=== PATIENT | female | born 1970 | race Hispanic/Latino ===

== ENCOUNTER → 2019-04-19 | Outpatient (CLI) | payer BC ==
[~2019-04-19] MED LIST: B COMPLEX1 EACH PO; D3 DOTS2000 UNIT PO; DIATRIZOATE MEGL/DIATRIZOA SOD 30 ML BTL PO ONE; IOPAMIDOL 370 MG/ML 200 ML INFUS..BTL INJ ONE; LEVOTHYROXINE100 MC1 IV; MACROBID 100 M100 MG PO; OMEPRAZOLE10 MG PO; PENTOXIFYLLINE400 MG PO; POTASSIUM CHLO20 ME1 PO; SODIUM CHLORIDE 0.9% 50ML 50 ML ONE
--- NOTE | 2019-04-19 10:27 | Diagnostic Imaging Report ---
ADDENDUM #[address] Jerrell Howe at 2:35PM 04/19/2019 Signed by: Heide Zamorano MD on 04/19/2019 2:36 PM ORIGINAL REPORT EXAM: CT Abdomen and Pelvis WITH intravenous contrast INDICATION: Abdominal pain COMPARISON: None. TECHNIQUE: Abdomen and pelvis were scanned utilizing a multidetector helical scanner from the lung base to the pubic symphysis after administration of IV contrast. Coronal and sagittal reformations were obtained. Routine protocol was performed. Scan was performed when during portal venous phase. IV CONTRAST: 100mL of Isovue 370 ORAL CONTRAST: Gastrografin. COMPLICATIONS: None RADIATION DOSE: Total DLP: 677.4 mGy*cm Dose modulation, iterative reconstruction, and/or weight based adjustment of the mA/kV was utilized to reduce the radiation dose to as low as reasonably achievable. FINDINGS: LOWER THORAX: Bibasilar dependent subsegmental atelectasis. HEPATOBILIARY: Diffuse hepatic steatosis. No focal liver lesions. Normal decompressed gallbladder. SPLEEN: No splenomegaly. PANCREAS: No focal masses or ductal dilatation. ADRENALS: No adrenal nodules. KIDNEYS/URETERS: 9 mm distal right ureteral calculus with resulting severe right hydroureteronephrosis. No left renal calculi. No left hydronephrosis. PELVIC ORGANS/BLADDER: Unremarkable. PERITONEUM / RETROPERITONEUM: No free air or fluid. LYMPH NODES: No lymphadenopathy. VESSELS: Normal. GI TRACT: Mild colonic diverticulosis. No CT evidence of diverticulitis. No bowel obstruction. No abnormal bowel wall thickening. Normal appendix. BONES AND SOFT TISSUES: No acute osseous injury. No suspicious lytic or blastic lesions. IMPRESSION: 9 mm right distal ureteral calculus with resulting severe right hydroureteronephrosis. No left renal calculi or hydronephrosis. Mild colonic diverticulosis. No CT evidence of diverticulitis. Hepatic steatosis. Signed by: Heide Zamorano MD on 04/19/2019 10:23 AM
== END ==
LOC: CT 08:21
PROVIDERS: ATTEND Internal Medicine
DX: K57.90 Diverticulosis of intestine, part unspecified, without perforation or abscess without bleeding (principal)
CPT/HCPCS: 74177; Q9967

== ENCOUNTER 2019-04-22 15:24 | Observation (INO) | payer BC ==
[~2019-04-22] VITALS: Ht 137.2 cm; Wt 82.1 kg
--- OUTSIDE RECORDS SUMMARY | 2019-04-22 15:28 | XMS REPORT | Summary of Care ---
Author Author [facility] Organization [facility] Address Unknown Phone Unavailable Encounter RAINA Douglass(LYDIA) [id number] Date(s): 01/04/18 - 01/05/18 [facility] [address] [place] [address]- Discharge Disposition: Home or Self Care Attending Physician: Tim Pham MD Vital Signs Most recent to 1 2 oldest [Reference Range]: Temperature Oral 98 DegF 98.7 DegF [96.4-99.1 DegF] (01/05/18 3:31 AM) (01/04/18 6:44 PM) Blood Pressure 118/76 mmHg 127/87 mmHg [90-140/60-90 mmHg] (01/05/18 3:31 AM) (01/04/18 6:44 PM) Respiratory Rate 16 BRMIN 18 BRMIN [14-20 BRMIN] (01/05/18 3:31 AM) (01/04/18 6:44 PM) Peripheral Pulse 86 bpm 83 bpm Rate [60-100 bpm] (01/05/18 3:31 AM) (01/04/18 6:44 PM) Problem List Condition Effective Dates Status Health Status Informant Escherichia 01/05/18 Active coli(Confirmed)1, 2 Hypertension(Confirm Resolved ed) 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 Allergies, Adverse Reactions, Alerts Substance Reaction Severity Status NKDA Active Medications Keflex 500 mg oral capsule 500 mg=1 cap, PO, TID, X 10 day, # 30 cap, 0 Refill(s) Start Date: 01/05/18 Stop Date: 01/15/18 Status: Ordered Saline Flush 0.9% 10 mL, Route: IVP, Drug Form: INJ, Dosing Weight 57.7, kg, PRN, PRN Line Flush, Start date: 01/04/18 22:28:00 CDT, Duration: 30 day, Stop date: 02/03/18 22:27:0 0 CDT Notes: (Same as: BD Posiflush) Start Date: 01/04/18 Stop Date: 01/05/18 Status: Discontinued Ultram 50 mg oral tablet 50 mg=1 tab, PO, Q6H, PRN pain, X 3 day, # 12 tab, 0 Refill(s) Start Date: 01/05/18 Stop Date: 01/08/18 Status: Ordered Results ELECTROLYTES Most recent to 1 oldest [Reference Range]: Sodium Lvl [135-145 138 mEq/L mEq/L] (01/04/18 10:53 PM) Potassium Lvl 3.6 mEq/L [3.5-5.1 mEq/L] (01/04/18 10:53 PM) Chloride Lvl [95-109 106 mEq/L mEq/L] (01/04/18 10:53 PM) CO2 [24-32 mEq/L] 27 mEq/L (01/04/18 10:53 PM) AGAP [10.0-20.0 8.6 mEq/L mEq/L] *LOW* (01/04/18 10:53 PM) CHEM PANEL Most recent to 1 oldest [Reference Range]: Creatinine Lvl 0.90 mg/dL [0.50-1.40 mg/dL] (01/04/18 10:53 PM) eGFR 75 mL/min/1.73m2 1 *NA* (01/04/18 10:53 PM) BUN [7-22 mg/dL] 17 mg/dL (01/04/18 10:53 PM) B/C Ratio [6-25] 19 (01/04/18 10:53 PM) Glucose Lvl [70-99 77 mg/dL mg/dL] (01/04/18 10:53 PM) Total Protein 7.9 g/dL [6.4-8.4 g/dL] (01/04/18 10:53 PM) Albumin Lvl [3.5-5.0 3.5 g/dL g/dL] (01/04/18 10:53 PM) Globulin [2.7-4.2 4.4 g/dL g/dL] *HI* (01/04/18 10:53 PM) A/G Ratio [0.7-1.6] 0.8 (01/04/18 10:53 PM) Calcium Lvl 8.8 mg/dL [8.5-10.5 mg/dL] (01/04/18 10:53 PM) ALT [0-65 unit/L] 52 unit/L (01/04/18 10:53 PM) AST [0-37 unit/L] 35 unit/L (01/04/18 10:53 PM) Alk Phos [39-136 51 unit/L unit/L] (01/04/18 10:53 PM) Bili Total [0.2-1.3 0.4 mg/dL mg/dL] (01/04/18 10:53 PM) 1Result Comment: The eGFR is calculated using the CKD-EPI formula. In most young, healthy individuals the eGFR will be >90 mL/min/1.73m2. The eGFR declines with age. An eGFR of 60-89 may be normal in some populations, particularly the elderly, for whom the CKD-EPI formula has not been extensively validated. Use of the eGFR is not recommended in the following populations: Individuals with unstable creatinine concentrations, including patients and those with serious co-morbid conditions. Patients with extremes in muscle mass or diet. The data above are obtained from the National Kid[employer] Disease Education Program ( NKDEP) which additionally recommends that when the eGFR is used in patients with extremes of body mass index for purposes of drug dosing, the eGFR should be mul tiplied by the estimated BMI. CARDIAC ENZYMES Most recent to 1 oldest [Reference Range]: Total CK [12-191 105 unit/L unit/L] (01/04/18 10:53 PM) CK MB [0.5-3.6 <1.0 ng/mL ng/mL] (01/04/18 10:53 PM) CK MB Index <1.0 [0.0-2.5] (01/04/18 10:53 PM) Troponin-I <0.02 ng/mL [0.00-0.40 ng/mL] (01/04/18 10:53 PM) URINE AND STOOL Most recent to 1 oldest [Reference Range]: UA Turbidity [Clear] Marked *ABN* (01/05/18 12:25 AM) UA Color [Yellow] Yellow *NA* (01/05/18 12:25 AM) UA pH [5.0-8.0] 5.0 (01/05/18 12:25 AM) UA Spec Grav 1.020 [<=1.030] (01/05/18 12:25 AM) UA Glucose [Negative Negative mg/dL mg/dL] *NA* (01/05/18 12:25 AM) UA Blood [Negative] Moderate *ABN* (01/05/18 12:25 AM) UA Ketones [Negative Negative mg/dL mg/dL] *NA* (01/05/18 12:25 AM) UA Protein [Negative Negative mg/dL mg/dL] (01/05/18 12:25 AM) UA Urobilinogen <=1.0 mg/dL [0.1-1.0 mg/dL] *NA* (01/05/18 12:25 AM) UA Bili [Negative] Negative *NA* (01/05/18 12:25 AM) UA Leuk Est Large [Negative] *ABN* (01/05/18 12:25 AM) UA Nitrite Positive [Negative] *ABN* (01/05/18 12:25 AM) UA WBC [0-5 /HPF] >182 /HPF *HI* (01/05/18 12:25 AM) UA RBC [0-2 /HPF] 14 /HPF *HI* (01/05/18 12:25 AM) UA Bacteria [None Moderate /HPF Seen /HPF] *ABN* (01/05/18 12:25 AM) UA Sq Epi [Few /LPF] Many /LPF *ABN* (01/05/18 12:25 AM) UA Mucus [None Seen Few /LPF /LPF] *NA* (01/05/18 12:25 AM) HEMATOLOGY Most recent to 1 oldest [Reference Range]: WBC [3.7-10.4 K/CMM] 10.1 K/CMM (01/04/18 10:53 PM) RBC [4.20-5.40 4.23 M/CMM M/CMM] (01/04/18 10:53 PM) Hgb [12.0-16.0 g/dL] 13.4 g/dL (01/04/18 10:53 PM) Hct [36.0-48.0 %] 39.1 % (01/04/18 10:53 PM) MCV [80.0-98.0 fL] 92.3 fL (01/04/18 10:53 PM) MCH [27.0-31.0 pg] 31.8 pg *HI* (01/04/18 10:53 PM) MCHC [32.0-36.0 34.4 g/dL g/dL] (01/04/18 10:53 PM) RDW [11.5-14.5 %] 13.9 % (01/04/18 10:53 PM) MPV [7.4-10.4 fL] 9.1 fL (01/04/18 10:53 PM) Platelet [133-450 306 K/CMM K/CMM] (01/04/18 10:53 PM) Segs [45.0-75.0 %] 32.3 % *LOW* (01/04/18 10:53 PM) Lymphocytes 50.4 % [20.0-40.0 %] *HI* (01/04/18 10:53 PM) Monocytes [2.0-12.0 12.0 % %] (01/04/18 10:53 PM) Eosinophils [0.0-4.0 4.9 % %] *HI* (01/04/18 10:53 PM) Basophils [0.0-1.0 0.4 % %] (01/04/18 10:53 PM) Segs-Bands # 3.3 K/CMM [1.5-8.1 K/CMM] (01/04/18 10:53 PM) Lymphocytes # 5.1 K/CMM [1.0-5.5 K/CMM] (01/04/18 10:53 PM) Monocytes # [0.0-0.8 1.2 K/CMM K/CMM] *HI* (01/04/18 10:53 PM) Eosinophils # 0.5 K/CMM [0.0-0.5 K/CMM] (01/04/18 10:53 PM) PT [12.0-14.7 12.5 seconds seconds] (01/04/18 10:53 PM) INR [0.85-1.17] 0.93 (01/04/18 10:53 PM) PTT [22.9-35.8 30.0 seconds seconds] (01/04/18 10:53 PM) Immunizations No data available for this section Procedures Procedure Date Related Diagnosis Body Site Status Hysterectomy 12/08/14 Completed section Completed Tracheostomy Completed Social History Social History Type Response Smoking Status Never smoker; Type: Cigarettes; Previous treatment: None; Ready to change: No; Concerns about tobacco use in household: No; Exposure to Tobacco Smoke None; Cigarette Smoking Last 365 Days No; Reg Smoking Cessation Counseling No entered on: 01/04/18 Assessment and Plan No data available for this section
--- OUTSIDE RECORDS SUMMARY | 2019-04-22 15:28 | XMS REPORT | Summary of Care ---
Author Author [facility] Organization [facility] Address Unknown Phone Unavailable Encounter RAINA Douglass(LYDIA) [id number] Date(s): 12/10/16 - 12/11/16 [facility] [address] [place] [address]- [phone] Discharge Disposition: Home or Self Care Attending Physician: Eusebio Valiente MD Admitting Physician: Eusebio Valiente MD Vital Signs 1 2 3 Most recent to oldest [Reference Range]: 149.86 cm (12/10/16 11:22 PM) 149.86 cm (12/10/16 11:17 PM) Height 55.8 kg (12/11/16 5:00 AM) Current Weight 129/79 mmHg (12/11/16 1:00 PM) 144/83 mmHg *HI* (12/11/16 12:30 PM) 135/76 mmHg (12/11/16 12:00 PM) Blood Pressure [90-140/60-90 mmHg] 20 BRMIN (12/11/16 1:00 PM) 25 BRMIN *HI* (12/11/16 12:30 PM) 20 BRMIN (12/11/16 12:00 PM) Respiratory Rate [14-20 BRMIN] 57.7 kg (12/10/16 11:22 PM) 57.007 kg (12/10/16 11:17 PM) Weight 25.69 m2 (12/10/16 11:22 PM) 25.38 m2 (12/10/16 11:17 PM) Body Mass Index Problem List Condition Effective Dates Status Health Status Informant Hypertension(Confirm Resolved ed) Renal Resolved failure(Confirmed) Stenosis of Resolved larynx(Confirmed) Vasculitis(Confirmed Resolved ) Allergies, Adverse Reactions, Alerts Substance Reaction Severity Status NKDA Active Medications albuterol-ipratropium 2.5-0.5 mg inhalation solution 3 mL, Route: INHALATION, Drug Form: SOLN, Dosing Weight 57.7, kg, Q6H, PRN Wheez ing, Start date: 12/11/16 3:25:00 CDT, Duration: 30 day, Stop date: 01/10/17 3:2 4:00 CDT Notes: (Same as: Duoneb) Start Date: 12/11/16 Stop Date: 12/11/16 Status: Discontinued albuterol-ipratropium 2.5-0.5 mg inhalation solution 3 mL, INHALATION, Q6H, PRN Wheezing, # 30 ea, 1 Refill(s) Start Date: 12/10/16 Stop Date: 12/11/16 Status: Discontinued bisacodyl 10 mg, [place], Daily, PRN constipation, 0 Refill(s) Start Date: 12/10/16 Stop Date: 12/11/16 Status: Discontinued bisacodyl 10 mg, 1 supp, Route: [place], Drug form: SUPP, Daily, Dosing Weight 57.7, kg, PRN Co nstipation, Start date: 12/11/16 3:25:00 CDT, Duration: 30 day, Stop date: 01/10 3:24:00 CDT Notes: (Same As: Dulcolax, Bisco-Lax) Start Date: 12/11/16 Stop Date: 12/11/16 Status: Discontinued carvedilol 12.5 mg, 1 tab, Route: PO, Drug form: TAB, Q12H, Dosing Weight 57.7, kg, Priorit y: NOW, Start date: 12/11/16 3:28:00 CDT, Duration: 30 day, Stop date: 01/09/17 21:00:00 CDT Notes: Give with food. (Same As: Coreg) Start Date: 12/11/16 Stop Date: 12/11/16 Status: Discontinued carvedilol 12.5 mg, Route: PO, Drug form: TAB, Q12H, Dosing Weight 57.7, kg, Start date: 9:00:00 CDT, Duration: 30 day, Stop date: 01/09/17 21:00:00 CDT Start Date: 12/11/16 Stop Date: 12/11/16 Status: Canceled carvedilol 12.5 mg oral tablet 12.5 mg=1 tab, PO, Q12H, # 60 tab, 0 Refill(s) Start Date: 12/10/16 Status: Ordered Cipro 500 mg oral tablet 500 mg=1 tab, PO, Daily, 0 Refill(s) Start Date: 12/10/16 Stop Date: 12/11/16 Status: Discontinued clotrimazole topical 1% cream 1 appl, Route: TOP, BID, Drug form: CRM, Start date: 12/11/16 9:00:00 CDT, Durat ion: 30 day, Stop date: 01/09/17 17:00:00 CDT Notes: For external use only.(Same As: Lotrimin AF, Mycelex) Start Date: 12/11/16 Stop Date: 12/11/16 Status: Discontinued clotrimazole topical 1% solution 1 appl, TOP, BID, # 15 mL, 0 Refill(s) Start Date: 12/10/16 Stop Date: 12/17/16 Status: Ordered Dexilant 30 mg, Route: PO, Drug form: DRC, Daily, Dosing Weight 57.7, kg, Start date: 02/21 9:00:00 CDT, Duration: 30 day, Stop date: 01/09/17 9:00:00 CDT Start Date: 12/11/16 Stop Date: 12/11/16 Status: Deleted Dexilant 30 mg oral delayed release capsule 30 mg=1 cap, PO, Daily, # 30 cap, 1 Refill(s) Start Date: 12/10/16 Status: Ordered Dextrose 50% Syringe 12.5 gm, 25 mL, Route: IVP, Drug Form: INJ, Dosing Weight 57.7, kg, PRN, PRN Blo od Glucose Results, Start date: 12/10/16 23:32:00 CDT, Duration: 30 day, Stop da te: 01/09/17 23:31:00 CDT Start Date: 12/10/16 Stop Date: 12/11/16 Status: Discontinued Dextrose 50% Syringe 25 gm, 50 mL, Route: IVP, Drug Form: INJ, Dosing Weight 57.7, kg, PRN, PRN Blood Glucose Results, Start date: 12/10/16 23:32:00 CDT, Duration: 30 day, Stop date: 01/09/17 23:31:00 CDT Start Date: 12/10/16 Stop Date: 12/11/16 Status: Discontinued ergocalciferol 50,000 intl units oral capsule 50,000 IntlUnit, 1 cap, Route: PO, Drug form: CAP, qWeek, Dosing Weight 57.7, kg , Start date: 12/11/16 9:00:00 CDT, Duration: 30 day, Stop date: 01/08/17 9:00:0 0 CDT Notes: (Same as: Vitamin D) "Do Not Crush" Start Date: 12/11/16 Stop Date: 12/11/16 Status: Discontinued ergocalciferol 50,000 intl units oral capsule 50,000 IntlUnit=1 cap, PO, qWeek, # 8 cap, 0 Refill(s) Start Date: 12/10/16 Stop Date: 02/04/17 Status: Ordered ferrous sulfate 325 mg, 1 tab, Route: PO, Drug form: ECTAB, TID-Meals, Dosing Weight 57.7, kg, S tart date: 12/11/16 8:00:00 CDT, Duration: 30 day, Stop date: 01/09/17 17:00:00 CDT Notes: Give with food. "Do Not Crush" Start Date: 12/11/16 Stop Date: 12/11/16 Status: Discontinued ferrous sulfate 325 mg oral enteric coated tablet 325 mg=1 tab, PO, TID, Start with 1 tab daily x 3 days, advance as tolerate, use stool softners and laxatives as needed for constipation, # 90 tab, 3 Refill(s) Start Date: 12/10/16 Status: Ordered fluticasone nasal 0.05 mg/inh spray 1 spray, Route: NASAL, Drug Form: SPRY, Dosing Weight 57.7, kg, BID, Start date: 12/11/16 9:00:00 CDT, Duration: 30 day, Stop date: 01/09/17 17:00:00 CDT Notes: (Same as: Flonase) Start Date: 12/11/16 Stop Date: 12/11/16 Status: Discontinued fluticasone nasal 0.05 mg/inh spray 1 spray, NASAL, BID, # 16 gm, 0 Refill(s) Start Date: 12/10/16 Status: Ordered glucagon 1 mg, Route: IM, Drug form: PDR/INJ, PRN, Dosing Weight 57.7, kg, PRN Blood Gluc ose Results, Start date: 12/10/16 23:32:00 CDT, Duration: 30 day, Stop date: 01/21 23:31:00 CDT Start Date: 12/10/16 Stop Date: 12/11/16 Status: Discontinued heparin 5,000 unit, 1 mL, Route: SUB-Q, Drug form: INJ, Q12H, Dosing Weight 72.727, kg, Start date: 12/11/16 9:00:00 CDT, Duration: 30 day, Stop date: 01/09/17 21:00:00 CDT Notes: porcine heparin Start Date: 12/11/16 Stop Date: 12/11/16 Status: Discontinued hydrALAZINE 10 mg, 0.5 mL, Route: IVP, Drug form: INJ, Q4H, Dosing Weight 57.7, kg, Priority : NOW, Start date: 12/11/16 3:29:00 CDT, Duration: 30 day, Stop date: 01/10/17 0 :00:00 CDT Notes: (Same as: Apresoline)Push over 5 minutes Start Date: 12/11/16 Stop Date: 12/11/16 Status: Discontinued insulin aspart 4 unit, 0.04 mL, Route: SUB-Q, Drug form: SOLN, Bedtime, Dosing Weight 57.7, kg, PRN Blood Glucose Results, Start date: 12/10/16 23:32:00 CDT, Duration: 30 day, Stop date: 01/09/17 23:31:00 CDT Notes: Roll in palms of hands gently; Do not shake vigorously. (Same as: NovoLO G)"single patient use only"WASTE: F/P - Black; E - Municipal Trash Bin Stable f or 28 days at room temperature.Expires in days from Date Start Date: 12/10/16 Stop Date: 12/11/16 Status: Discontinued insulin aspart 2 unit, 0.02 mL, Route: SUB-Q, Drug form: SOLN, Bedtime, Dosing Weight 57.7, kg, PRN Blood Glucose Results, Start date: 12/10/16 23:32:00 CDT, Duration: 30 day, Stop date: 01/09/17 23:31:00 CDT Notes: Roll in palms of hands gently; Do not shake vigorously. (Same as: Mira Jarvis)"single patient use only"WASTE: F/P - Black; E - Municipal Trash Bin Stable f or 28 days at room temperature.Expires in days from Date Start Date: 12/10/16 Stop Date: 12/11/16 Status: Discontinued insulin aspart 3 unit, 0.03 mL, Route: SUB-Q, Drug form: SOLN, Bedtime, Dosing Weight 57.7, kg, PRN Blood Glucose Results, Start date: 12/10/16 23:32:00 CDT, Duration: 30 day, Stop date: 01/09/17 23:31:00 CDT Notes: Roll in palms of hands gently; Do not shake vigorously. (Same as: NovoMARY GRACE Jarvis)"single patient use only"WASTE: F/P - Black; E - Municipal Trash Bin Stable f or 28 days at room temperature.Expires in days from Date Start Date: 12/10/16 Stop Date: 12/11/16 Status: Discontinued insulin aspart 6 unit, 0.06 mL, Route: SUB-Q, Drug form: SOLN, TID-Before Meals, Dosing Weight 57.7, kg, PRN Blood Glucose Results, Start date: 12/10/16 23:32:00 CDT, Duration : 30 day, Stop date: 01/09/17 23:31:00 CDT Notes: Roll in palms of hands gently; Do not shake vigorously. (Same as: Mira Jarvis)"single patient use only"WASTE: F/P - Black; E - Municipal Trash Bin Stable f or 28 days at room temperature.Expires in days from Date Start Date: 12/10/16 Stop Date: 12/11/16 Status: Discontinued insulin aspart 8 unit, 0.08 mL, Route: SUB-Q, Drug form: SOLN, TID-Before Meals, Dosing Weight 57.7, kg, PRN Blood Glucose Results, Start date: 12/10/16 23:32:00 CDT, Duration : 30 day, Stop date: 01/09/17 23:31:00 CDT Notes: Roll in palms of hands gently; Do not shake vigorously. (Same as: Mira Jarvis)"single patient use only"WASTE: F/P - Black; E - Municipal Trash Bin Stable f or 28 days at room temperature.Expires in days from Date Start Date: 12/10/16 Stop Date: 12/11/16 Status: Discontinued insulin aspart 10 unit, 0.1 mL, Route: SUB-Q, Drug form: SOLN, TID-Before Meals, Dosing Weight 57.7, kg, PRN Blood Glucose Results, Start date: 12/10/16 23:32:00 CDT, Duration : 30 day, Stop date: 01/09/17 23:31:00 CDT Notes: Roll in palms of hands gently; Do not shake vigorously. (Same as: NovoMARY GRACE Jarvis)"single patient use only"WASTE: F/P - Black; E - Municipal Trash Bin Stable f or 28 days at room temperature.Expires in days from Date Start Date: 12/10/16 Stop Date: 12/11/16 Status: Discontinued insulin aspart 4 unit, 0.04 mL, Route: SUB-Q, Drug form: SOLN, TID-Before Meals, Dosing Weight 57.7, kg, PRN Blood Glucose Results, Start date: 12/10/16 23:32:00 CDT, Duration : 30 day, Stop date: 01/09/17 23:31:00 CDT Notes: Roll in palms of hands gently; Do not shake vigorously. (Same as: NovoMARY GRACE Jarvis)"single patient use only"WASTE: F/P - Black; E - Municipal Trash Bin Stable f or 28 days at room temperature.Expires in days from Date Start Date: 12/10/16 Stop Date: 12/11/16 Status: Discontinued insulin aspart 2 unit, 0.02 mL, Route: SUB-Q, Drug form: SOLN, TID-Before Meals, Dosing Weight 57.7, kg, PRN Blood Glucose Results, Start date: 12/10/16 23:32:00 CDT, Duration : 30 day, Stop date: 01/09/17 23:31:00 CDT Notes: Roll in palms of hands gently; Do not shake vigorously. (Same as: NovoMARY GRACE Jarvis)"single patient use only"WASTE: F/P - Black; E - Municipal Trash Bin Stable f or 28 days at room temperature.Expires in days from Date Start Date: 12/10/16 Stop Date: 12/11/16 Status: Discontinued insulin aspart 1 unit, 0.01 mL, Route: SUB-Q, Drug form: SOLN, Bedtime, Dosing Weight 57.7, kg, PRN Blood Glucose Results, Start date: 12/10/16 23:32:00 CDT, Duration: 30 day, Stop date: 01/09/17 23:31:00 CDT Notes: Roll in palms of hands gently; Do not shake vigorously. (Same as: Mira Jarvis)"single patient use only"WASTE: F/P - Black; E - Municipal Trash Bin Stable f or 28 days at room temperature.Expires in days from Date Start Date: 12/10/16 Stop Date: 12/11/16 Status: Discontinued NIFEdipine 90 mg oral tablet, extended release 90 mg, 1 tab, Route: PO, Drug form: ERTAB, Daily, Dosing Weight 57.7, kg, Priori ty: NOW, Start date: 12/11/16 3:28:00 CDT, Duration: 30 day, Stop date: 01/09/17 9:00:00 CDT Notes: (Same as: Adalat CC,Procardia XL)"Do Not Crush" "Avoid grapefruit and gr apefruit juice" Start Date: 12/11/16 Stop Date: 12/11/16 Status: Discontinued NIFEdipine 90 mg oral tablet, extended release 90 mg, 1 tab, Route: PO, Drug form: ERTAB, Daily, Dosing Weight 57.7, kg, Start date: 12/11/16 9:00:00 CDT, Duration: 30 day, Stop date: 01/09/17 9:00:00 CDT Start Date: 12/11/16 Stop Date: 12/11/16 Status: Canceled NIFEdipine 90 mg oral tablet, extended release 90 mg=1 tab, PO, Daily, # 30 tab, 0 Refill(s) Start Date: 12/10/16 Status: Ordered normal saline inhalation solution See Instructions, PRN Congestion, 2 sprays, 0 Refill(s) Start Date: 12/10/16 Stop Date: 12/11/16 Status: Discontinued nystatin topical 100,000 units/g powder 1 appl, Route: TOP, PRN, Drug form: PWDR, PRN For Fungal Prophylaxis, Start date : 12/10/16 23:11:00 CDT, Duration: 30 day, Stop date: 01/09/17 23:10:00 CDT Notes: (Same as:Mycostatin, Nilstat) For external use only. Start Date: 12/10/16 Stop Date: 12/11/16 Status: Discontinued predniSONE 15 mg, 3 tab, Route: PO, Drug form: TAB, Daily, Dosing Weight 57.7, kg, Start da te: 12/11/16 9:00:00 CDT, Duration: 30 day, Stop date: 01/09/17 9:00:00 CDT Notes: Take with food. Start Date: 12/11/16 Stop Date: 12/11/16 Status: Discontinued predniSONE 10 mg oral tablet 15 mg=1.5 tab, PO, Daily, x 90 days, 0 Refill(s) Start Date: 12/10/16 Status: Ordered Procrit (ESRD) 7,500 unit, 0.75 mL, Route: SUB-Q, Drug form: INJ, After Dialysis, Dosing Weight 72.727, kg, PRN Dialysis, Start date: 12/10/16 23:18:00 CDT, Duration: 30 day, Stop date: 01/09/17 23:17:00 CDT Notes: (Same as: Procrit) epoetin jay 82083 unit/1 ml VL.For dialysis use only. (Procrit)WASTE: F/P - Red; E -Red MEDICATION WASTE Product Size: 77260 unitProduct Wasted: ___ unit Start Date: 12/10/16 Stop Date: 12/11/16 Status: Discontinued Protonix 40 mg, 1 tab, Route: PO, Drug form: ECTAB, Before Breakfast, Start date: 7 9:00:00 CDT, Stop date: 01/09/17 7:30:00 CDT Notes: Tablet should not be chewed or crushed.(Same as: Protonix) Start Date: 12/11/16 Stop Date: 12/11/16 Status: Discontinued Renvela 1,600 mg, 2 tab, Route: PO, Drug form: TAB, TID-Meals, Dosing Weight 57.7, kg, S tart date: 12/11/16 8:00:00 CDT, Duration: 30 day, Stop date: 01/09/17 17:00:00 CDT Notes: Same as: Renvela Start Date: 12/11/16 Stop Date: 12/11/16 Status: Discontinued Renvela 800 mg oral tablet 1,600 mg=2 tab, PO, TID-Meals, # 180 tab, 0 Refill(s) Start Date: 12/10/16 Stop Date: 01/09/17 Status: Ordered Saline Flush 0.9% 10 ml, Route: IVP, Drug Form: INJ, Dosing Weight 72.727, kg, Q12H, Start date: 0 12/11/16 9:00:00 CDT, Duration: 30 day, Stop date: 01/09/17 21:00:00 CDT Notes: (Same as: BD Posiflush) Start Date: 12/11/16 Stop Date: 12/11/16 Status: Discontinued Saline Flush 0.9% 10 ml, Route: IVP, Drug Form: INJ, Dosing Weight 72.727, kg, PRN, PRN Line Flush , Start date: 12/10/16 23:11:00 CDT, Duration: 30 day, Stop date: 01/09/17 23:10 :00 CDT Notes: (Same as: BD Posiflush) Start Date: 12/10/16 Stop Date: 12/11/16 Status: Discontinued sevelamer carbonate 800 mg oral tablet 1,600 mg=2 tab, PO, TID, with meals, 0 Refill(s) Start Date: 12/10/16 Stop Date: 12/11/16 Status: Discontinued sodium bicarbonate 325 mg oral tablet 2 tabs, PO, TID, 0 Refill(s) Start Date: 12/10/16 Status: Ordered Tylenol 650 mg, 2 tab, Route: PO, Drug form: TAB, Q6H, Dosing Weight 57.7, kg, PRN Pain Score 1-3, Start date: 12/11/16 9:38:00 CDT, Duration: 30 day, Stop date: 9:37:00 CDT Notes: Do not exceed 4 gm/day. (Same as: Tylenol) Start Date: 12/11/16 Stop Date: 12/11/16 Status: Discontinued vancomycin 125 mg oral capsule See Instructions, 1 cap PO Q6H x2d then q12 x7d then daily x7d then every other day x14d, 0 Refill(s) Start Date: 12/10/16 Stop Date: 12/11/16 Status: Discontinued Results ELECTROLYTES Most recent to 1 2 oldest [Reference Range]: Sodium Lvl [135-145 138 mEq/L 139 mEq/L mEq/L] (12/11/16 6:47 AM) (12/10/16 11:20 PM) Potassium Lvl 3.6 mEq/L 6.7 mEq/L 1 [3.5-5.1 mEq/L] (12/11/16 6:47 AM) *CRIT* (12/10/16 11:20 PM) Chloride Lvl [95-109 100 mEq/L 99 mEq/L mEq/L] (12/11/16 6:47 AM) (12/10/16 11:20 PM) CO2 [24-32 mEq/L] 27 mEq/L 21 mEq/L (12/11/16 6:47 AM) *LOW* (12/10/16 11:20 PM) AGAP [10.0-20.0 14.6 mEq/L 25.7 mEq/L mEq/L] (12/11/16 6:47 AM) *HI* (12/10/16 11:20 PM) 1Result Comment: Critical Result(s) called to Debra Lindquist RN at 12/11/2016 00:09 by RA. Read back OK. CHEM PANEL Most recent to 1 2 oldest [Reference Range]: Creatinine Lvl 4.83 mg/dL 12.40 mg/dL [0.50-1.40 mg/dL] *HI* *HI* (12/11/16 6:47 AM) (12/10/16 11:20 PM) eGFR 10 mL/min/1.73m2 1 3 mL/min/1.73m2 2 *NA* *NA* (12/11/16 6:47 AM) (12/10/16 11:20 PM) BUN [7-22 mg/dL] 33 mg/dL 114 mg/dL *HI* *HI* (12/11/16 6:47 AM) (12/10/16 11:20 PM) Glucose Lvl [70-99 71 mg/dL 84 mg/dL mg/dL] (12/11/16 6:47 AM) (12/10/16 11:20 PM) Calcium Lvl 8.0 mg/dL 7.7 mg/dL [8.5-10.5 mg/dL] *LOW* *LOW* (12/11/16 6:47 AM) (12/10/16 11:20 PM) 1Result Comment: The eGFR is calculated [...] be mul tiplied by the estimated BMI. 2Result Comment: The eGFR is calculated using the [...] be mul tiplied by the estimated BMI. SPECIAL CHEMISTRY Most recent to 1 2 oldest [Reference Range]: Hgb A1C [<=5.6 %] 4.8 % (12/10/16 11:20 PM) IMMUNOLOGY Most recent to 09 08 oldest [Reference Range]: Hep Bs Ag [Negative] Negative *NA* (12/10/16 11:20 PM) Hep Bs Ab [<=7.4 <3.1 mIU/mL mIU/mL] (12/10/16 11:20 PM) HEMATOLOGY Most recent to 1 2 oldest [Reference Range]: WBC [3.7-10.4 K/CMM] 7.0 K/CMM 8.6 K/CMM (12/11/16 6:47 AM) (12/10/16 11:20 PM) RBC [4.20-5.40 3.20 M/CMM 3.15 M/CMM M/CMM] *LOW* *LOW* (12/11/16 6:47 AM) (12/10/16 11:20 PM) Hgb [12.0-16.0 g/dL] 9.2 g/dL 9.1 g/dL *LOW* *LOW* (12/11/16 6:47 AM) (12/10/16 11:20 PM) Hct [36.0-48.0 %] 27.4 % 27.2 % *LOW* *LOW* (12/11/16 6:47 AM) (12/10/16 11:20 PM) MCV [80.0-98.0 fL] 85.5 fL 86.4 fL (12/11/16 6:47 AM) (12/10/16 11:20 PM) MCH [27.0-31.0 pg] 28.9 pg 28.9 pg (12/11/16 6:47 AM) (12/10/16 11:20 PM) MCHC [32.0-36.0 33.8 g/dL 33.4 g/dL g/dL] (12/11/16 6:47 AM) (12/10/16 11:20 PM) RDW [11.5-14.5 %] 14.5 % 14.6 % (12/11/16 6:47 AM) *HI* (12/10/16 11:20 PM) Platelet [133-450 203 K/CMM 223 K/CMM K/CMM] (12/11/16 6:47 AM) (12/10/16 11:20 PM) MPV [7.4-10.4 fL] 7.1 fL 7.4 fL *LOW* (12/10/16 11:20 PM) (12/11/16 6:47 AM) Segs [45.0-75.0 %] 82.7 % 89.1 % *HI* *HI* (12/11/16 6:47 AM) (12/10/16 11:20 PM) Lymphocytes 7.5 % 4.2 % [20.0-40.0 %] *LOW* *LOW* (12/11/16 6:47 AM) (12/10/16 11:20 PM) Monocytes [2.0-12.0 7.5 % 5.9 % %] (12/11/16 6:47 AM) (12/10/16 11:20 PM) Eosinophils [0.0-4.0 1.7 % 0.4 % %] (12/11/16 6:47 AM) (12/10/16 11:20 PM) Basophils [0.0-1.0 0.6 % 0.4 % %] (12/11/16 6:47 AM) (12/10/16 11:20 PM) Segs-Bands # 5.8 K/CMM 7.6 K/CMM [1.5-8.1 K/CMM] (12/11/16 6:47 AM) (12/10/16 11:20 PM) Lymphocytes # 0.5 K/CMM 0.4 K/CMM [1.0-5.5 K/CMM] *LOW* *LOW* (12/11/16 6:47 AM) (12/10/16 11:20 PM) Monocytes # [0.0-0.8 0.5 K/CMM 0.5 K/CMM K/CMM] (12/11/16 6:47 AM) (12/10/16 11:20 PM) Eosinophils # 0.1 K/CMM [0.0-0.5 K/CMM] (12/11/16 6:47 AM) Anisocyte [None 1+ Seen] *ABN* (12/10/16 11:20 PM) Plt Morph Normal (12/10/16 11:20 PM) Immunizations No data available for this section Procedures Procedure Date Related Diagnosis Body Site Hysterectomy 12/08/14 section Tracheostomy Social History Social History Type Response Smoking Status Never smoker; Exposure to Tobacco Smoke None; Cigarette Smoking Last 365 Days No; Reg Smoking Cessation Counseling No Assessment and Plan Extracted from: Title: ICU Discharge Author: Ray Shepherd MD Date: 12/11/16 DISCHARGE SUMMARY DATE OF ADMISSION: December 10, 2016 DATE OF DISCHARGE: December 11, 2016 ADMITTING DIAGNOSES: 1. End-stage renal disease 2. Acute uremia 3. Chronic uremia 4. Hyperkalemia DISCHARGE DIAGNOSES: 1. Acute on chronic uremia 2. Hyperkalemia 3. Status post tracheostomy 4. Tracheal stenosis 5. Sjogren's disease 6. Anemia DISCHARGE MEDICATIONS: For the list of medications please refer to the medication reconciliation list NEW MEDICATIONS: Not applicable PROCEDURES: 1. Hemodialysis CONSULTANTS: Attending: Eusebio Valiente MD.....Office: .....MSO: [id number] Status: Inpatient Code Status: None Specified=FULL CODE Service: Internal Medicine Jennifer Contact 1: (not entered) Jennifer Phone 1: (not entered) Orientation: Oriented x 4 (charted: 12/11/16) HIE Consent: UNKNOWN (entered: 10/03/12) HIE Data: No Allergies: NKDA Problems: None Documented Isolation: None Documented Admitted: 12/10/16 22:49 LOS: 1 day Discharged: 12/11/16 14:38 Reason for Admission: HYPERKALEMIA Hemodialysis: 12/10/16 23:17:00 CDT [Ordered] Working DRG: MISC DISORDERS OF NUTRITION,METABOLISM,FLUIDS/ELECTROLYTES W/O [facility] [place] Diet: Diet Renal 80,2,2,1(pro,sod,pot,phos) PCP: PCP, Maria Isabel BOURGEOIS.....Office: (not on file).....MSO: [id number] Consulting Physicians: Chandler Wooten MDOffice: MSO: [id number]: Nephrology SUMMARY: 46-year-old female who carries a diagnosis of end-stage renal disease presented to the emergency room of an outside facility with an acute episode of worsening uremia. 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 She does not have access to a chair as an outpatient. On admission day she presented to the emergency room of an outside facility with uremia and she was found to be hyperkalemic. She was transferred to the Center for further evaluation and management and underwent emergent dialysis. By December 11, 2016 she was in a stable condition and she was discharged home. I spent 42 minutes coordinating the discharge of this patient. Extracted from: Title: Progress Note Complex * Author: Chandler Wooten MD Date: 12/11/16 Impression and Plan ESRD HYPERKALEMIA--RESOLVED ANEMIA HTN HX VASCULITIS RESP FAILURE HD TOMORROW CONTINUE MEDS STABLE RENAL BHATTI Extracted from: Title: .[facility] Critical Care Note Author: Eusebio Valiente MD Date: 12/10/16 Impression and Plan
--- OUTSIDE RECORDS SUMMARY | 2019-04-22 15:28 | XMS REPORT | Clinical Summary ---
Author Author [facility] Organization [facility] Address Unknown Phone Unavailable Care Team Providers Care Machine Heel Seat Laster Name Role Phone Asked, No Pcp PCP Unavailable Allergies No Known Allergies Medications End Date Status Medication Sig Dispensed Refills Start Date Active levothyroxine (SYNTHROID, 0 LEVOXYL) 137 mcg tablet 9 Active ranitidine (ZANTAC) 150 Take 150 mg 0 MG tablet by mouth 2 (two) times a day. Active Problems Not on file Encounters Care Team Description Date Type Specialty Isak Clifton MA Venous insufficiency (Primary Dx); Venous reflux 04/22/2019 Orders Only Cardiovascular Gina Roldan FNP Venous reflux (Primary Dx) 03/28/2019 Office Visit Cardiovascular after 04/21/2018 Social History Date Tobacco Use Types Packs/Day Years Used Never Assessed Sex Assigned at Date Recorded Not on file Industry Job Start Date Occupation Not on file Not on file Not on file Travel End Travel History Travel Start No recent travel history available. Last Filed Vital Signs Time Taken Vital Sign Reading 03/28/2019 11:16 AM CDT Blood Pressure 111/66 03/28/2019 11:16 AM CDT Pulse 80 - Temperature - - Respiratory Rate - 03/28/2019 11:16 AM CDT Oxygen Saturation 95% - Inhaled Oxygen - Concentration - Weight - - Height - - Body Mass Index - Plan of Treatment Care Team Description Date Type Specialty 04/25/2019 Appointment Procedural Cardiology Gina Roldan FNP [id number] [address] 04/25/2019 Office Visit Cardiovascular Health Maintenance Due Date Last Done Comments BREAST CANCER SCREENING 01/13/2018 COLONOSCOPY SCREENING 01/13/2018 SHINGLES VACCINES (#1) 01/13/2018 INFLUENZA VACCINE 04/07/2019 Results Not on fileafter 04/21/2018 Insurance Type Payer Benefit Subscriber ID Effective Phone Address Plan / Dates Group PPO BCBS BCBS xxxxxxxxxxxx [id number] CHOICE resent PPO/ROBERTO [employer] PPO Advance Directives Patient has advance care planning documents on file. For more information, joe stahl contact: Holden Harvey [address] [place] [address]
--- OUTSIDE RECORDS SUMMARY | 2019-04-22 15:28 | XMS REPORT | Summary of Care ---
Author Author [facility] Organization [facility] Address Unknown Phone Unavailable Encounter [facility](LYDIA) [id number] Date(s): 01/04/18 - 01/05/18 [facility] [address] [place] [address]- Encounter Diagnosis Radiculopathy, site unspecified (Final) - Urinary tract infection, site not specified (Final) - Essential (primary) hypertension (Final) - Discharge Disposition: Home or Self Care Attending [...] Start Date: 01/05/18 Stop Date: 01/08/18 Status: Completed Results ELECTROLYTES Most recent to 1 oldest [...]
--- OUTSIDE RECORDS SUMMARY | 2019-04-22 15:28 | XMS REPORT | Continuity of Care Document ---
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 [facility] ARM NUMBNESS/SOB Active 01/04/2018 [facility] HYPERKALEMIA Active 12/10/2016 [facility] 278.0 - OBESITY Active 02/24/2012 [facility] [place] Radiculopathy, site unspecified 01/15/2018 [facility] Urinary tract infection, site not specified 01/15/2018 [facility] Essential (primary) hypertension 01/15/2018 [facility] Hypertensive disorder, systemic arterial (disorder) Resolved Problem 01/15/2018 [facility] Renal failure syndrome (disorder) Resolved Problem 01/15/2018 [facility] Stenosis of larynx (disorder) Resolved Problem 01/15/2018 [facility] Vasculitis (disorder) Resolved Problem 01/15/2018 [facility] HYPERKALEMIA Active [facility] Medications Medication Details Route Status Patient Instructions Ordering Provider Order Date Source tramadol hydrochloride 50 MG Oral Tablet [Ultram] 50 mg=1 tab, PO, Q6H, PRN pain, X 3 day, # 12 tab, 0 Refill(s) No Longer Active 01/05/2018 [facility] Cephalexin 500 MG Oral Capsule [Keflex] 500 mg=1 cap, PO, TID, X 10 day, # 30 cap, 0 Refill(s) Active 01/05/2018 [facility] Saline Flush 0.9% 10 mL, Route: IVP, Drug Form: INJ, Dosing Weight 57.7, kg, PRN, PRN Line Flush, Start date: 01/04/18 22:28:00 CDT, Duration: 30 day, Stop date: 02/03/18 22:27:00 CDTNotes: (Same as: BD Posiflush) No Longer Active 01/05/2018 [facility] Tylenol 650 mg, 2 tab, Route: PO, Drug form: TAB, Q6H, Dosing Weight 57.7, kg, PRN Pain Score 1-3, Start date: 12/11/16 9:38:00 CDT, Duration: 30 day, Stop date: 01/10/17 9:37:00 CDTNotes: Do not exceed 4 gm/day. (Same as: Tylenol) Inactive 12/11/2016 [facility] Saline Flush 0.9% 10 ml, Route: IVP, Drug Form: INJ, Dosing Weight 72.727, kg, Q12H, Start date: 12/11/16 9:00:00 CDT, Duration: 30 day, Stop date: 01/09/17 21:00:00 CDTNotes: (Same as: BD Posiflush) Inactive 12/11/2016 [facility] 24 HR Nifedipine 90 MG Extended Release Tablet 90 mg, 1 tab, Route: PO, Drug form: ERTAB, Daily, Dosing Weight 57.7, kg, Start date: 12/11/16 9:00:00 CDT, Duration: 30 day, Stop date: 01/09/17 9:00:00 CDT Inactive 12/11/2016 [facility] heparin 5,000 unit, 1 mL, Route: SUB-Q, Drug form: INJ, Q12H, Dosing Weight 72.727, kg, Start date: 12/11/16 9:00:00 CDT, Duration: 30 day, Stop date: 01/09/17 21:00:00 CDTNotes: porcine heparin Inactive 12/11/2016 [facility] Protonix 40 mg, 1 tab, Route: PO, Drug form: ECTAB, Before Breakfast, Start date: 12/11/16 9:00:00 CDT, Stop date: 01/09/17 7:30:00 CDTNotes: Tablet should not be chewed or crushed. (Same as: Protonix) Inactive 12/11/2016 [facility] Prednisone 15 mg, 3 tab, Route: PO, Drug form: TAB, Daily, Dosing Weight 57.7, kg, Start date: 12/11/16 9:00:00 CDT, Duration: 30 day, Stop date: 01/09/17 9:00:00 CDTNotes: Take with food. Inactive 12/11/2016 [facility] Fluticasone propionate 0.05 MG/ACTUAT Metered Dose Nasal [place] 1 spray, Route: NASAL, Drug Form: SPRY, Dosing Weight 57.7, kg, BID, Start date: 12/11/16 9:00:00 CDT, Duration: 30 day, Stop date: 01/09/17 17:00:00 CDTNotes: (Same as: Flonase) Inactive 12/11/2016 [facility] Ergocalciferol 40307 UNT Oral Capsule 50,000 IntlUnit, 1 cap, Route: PO, Drug form: CAP, qWeek, Dosing Weight 57.7, kg, Start date: 12/11/16 9:00:00 CDT, Duration: 30 day, Stop date: 01/08/17 9:00:00 CDTNotes: (Same as: Vitamin D) "Do Not Crush" Inactive 12/11/2016 [facility] Dexilant 30 mg, Route: PO, Drug form: DRC, Daily, Dosing Weight 57.7, kg, Start date: 12/11/16 9:00:00 CDT, Duration: 30 day, Stop date: 01/09/17 9:00:00 CDT Inactive 12/11/2016 [facility] Clotrimazole 10 MG/ML Topical Solution 1 appl, Route: TOP, BID, Drug form: CRM, Start date: 12/11/16 9:00:00 CDT, Duration: 30 day, Stop date: 01/09/17 17:00:00 CDTNotes: For external use only. (Same As: Lotrimin AF, Mycelex) Inactive 12/11/2016 [facility] carvedilol 12.5 mg, Route: PO, Drug form: TAB, Q12H, Dosing Weight 57.7, kg, Start date: 12/11/16 9:00:00 CDT, Duration: 30 day, Stop date: 01/09/17 21:00:00 CDT Inactive 12/11/2016 [facility] Renvela 1,600 mg, 2 tab, Route: PO, Drug form: TAB, TID- Meals, Dosing Weight 57.7, kg, Start date: 12/11/16 8:00:00 CDT, Duration: 30 day, Stop date: 01/09/17 17:00:00 CDTNotes: Same as: Renvela Inactive 12/11/2016 [facility] ferrous sulfate 325 mg, 1 tab, Route: PO, Drug form: ECTAB, TID-Meals, Dosing Weight 57.7, kg, Start date: 12/11/16 8:00:00 CDT, Duration: 30 day, Stop date: 01/09/17 17:00:00 CDTNotes: Give with food. "Do Not Crush" Inactive 12/11/2016 [facility] Hydralazine 10 mg, 0.5 mL, Route: IVP, Drug form: INJ, Q4H, Dosing Weight 57.7, kg, Priority: NOW, Start date: 12/11/16 3:29:00 CDT, Duration: 30 day, Stop date: 01/10/17 0:00:00 CDTNotes: (Same as: Apresoline) Push over 5 minutes Inactive 12/11/2016 [facility] 24 HR Nifedipine 90 MG Extended Release Tablet 90 mg, 1 tab, Route: PO, Drug form: ERTAB, Daily, Dosing Weight 57.7, kg, Priority: NOW, Start date: 12/11/16 3:28:00 CDT, Duration: 30 day, Stop date: 01/09/17 9:00:00 CDTNotes: (Same as: Adalat CC,Procardia XL) "Do Not Crush" "Avoid grapefruit and grapefruit juice" Inactive 12/11/2016 [facility] carvedilol 12.5 mg, 1 tab, Route: PO, Drug form: TAB, Q12H, Dosing Weight 57.7, kg, Priority: NOW, Start date: 12/11/16 3:28:00 CDT, Duration: 30 day, Stop date: 01/09/17 21:00:00 CDTNotes: Give with food. (Same As: Coreg) Inactive 12/11/2016 [facility] Albuterol 0.833 MG/ML / Ipratropium Roberts 0.167 MG/ML Inhalant Solution 3 mL, Route: INHALATION, Drug Form: SOLN, Dosing Weight 57.7, kg, Q6H, PRN Wheezing, Start date: 12/11/16 3:25:00 CDT, Duration: 30 day, Stop date: 01/10/17 3:24:00 CDTNotes: (Same as: Duoneb) Inactive 12/11/2016 [facility] Bisacodyl 10 mg, 1 supp, Route: NM, Drug form: SUPP, Daily, Dosing Weight 57.7, kg, PRN Constipation, Start date: 12/11/16 3:25:00 CDT, Duration: 30 day, Stop date: 01/10/17 3:24:00 CDTNotes: (Same As: Dulcolax, Bisco-Lax) Inactive 12/11/2016 [facility] Sodium Bicarbonate 325 MG Oral Tablet 2 tabs, PO, TID, 0 Refill(s) Active 12/11/2016 [facility] predniSONE 10 mg oral tablet 15 mg=1.5 tab, PO, Daily, x 90 days, 0 Refill(s) Active 12/11/2016 [facility] sevelamer carbonate 800 MG Oral Tablet [Renvela] 1,600 mg=2 tab, PO, TID-Meals, # 180 tab, 0 Refill(s) Active 12/11/2016 [facility] Clotrimazole 10 MG/ML Topical Solution 1 appl, TOP, BID, # 15 mL, 0 Refill(s) Active 12/11/2016 [facility] vancomycin 125 mg oral capsule See Instructions, 1 cap PO Q6H x2d then q12 x7d then daily x7d then every other day x14d, 0 Refill(s) No Longer Active 12/11/2016 [facility] Ciprofloxacin 500 MG Oral Tablet [Cipro] 500 mg=1 tab, PO, Daily, 0 Refill(s) No Longer Active 12/11/2016 [facility] sevelamer carbonate 800 mg oral tablet 1,600 mg=2 tab, PO, TID, with meals, 0 Refill(s) No Longer Active 12/11/2016 [facility] 24 HR Nifedipine 90 MG Extended Release Tablet 90 mg=1 tab, PO, Daily, # 30 tab, 0 Refill(s) Active 12/11/2016 [facility] Bisacodyl 10 mg, NM, Daily, PRN constipation, 0 Refill(s) No Longer Active 12/11/2016 [facility] ferrous sulfate 325 mg oral enteric coated tablet 325 mg=1 tab, PO, TID, Start with 1 tab daily x 3 days, advance as tolerate, use stool softners and laxatives as needed for constipation, # 90 tab, 3 Refill(s) Active 12/11/2016 [facility] Albuterol 0.833 MG/ML / Ipratropium Roberts 0.167 MG/ML Inhalant Solution 3 mL, INHALATION, Q6H, PRN Wheezing, # 30 ea, 1 Refill(s) No Longer Active 12/11/2016 [facility] Ergocalciferol 89236 UNT Oral Capsule 50,000 IntlUnit=1 cap, PO, qWeek, # 8 cap, 0 Refill(s) Active 12/11/2016 [facility] dexlansoprazole 30 MG Enteric Coated Capsule [Dexilant] 30 mg=1 cap, PO, Daily, # 30 cap, 1 Refill(s) Active 12/11/2016 [facility] Fluticasone propionate 0.05 MG/ACTUAT Metered Dose Nasal [place] 1 spray, NASAL, BID, # 16 gm, 0 Refill(s) Active 12/11/2016 [facility] carvedilol 12.5 mg oral tablet 12.5 mg=1 tab, PO, Q12H, # 60 tab, 0 Refill(s) Active 12/11/2016 [facility] Sodium Chloride 0.154 MEQ/ML Inhalant Solution See Instructions, PRN Congestion, 2 sprays, 0 Refill(s) No Longer Active 12/11/2016 [facility] Insulin, Aspart, Human 4 unit, 0.04 mL, Route: SUB-Q, Drug form: SOLN, Bedtime, Dosing Weight 57.7, kg, PRN Blood Glucose Results, Start date: 12/10/16 23:32:00 CDT, Duration: 30 day, Stop date: 01/09/17 23:31:00 CDTNotes: Roll in palms of hands gently; Do not shake vigorously. (Same as: NovoLOG) "single patient use only" WASTE: F/P - Black; E - Appscend Trash Bin Stable for 28 days at room temperature. Expires in days from Date No Longer Active 12/11/2016 [facility] Dextrose 50% Syringe 12.5 gm, 25 mL, Route: IVP, Drug Form: INJ, Dosing Weight 57.7, kg, PRN, PRN Blood Glucose Results, Start date: 12/10/16 23:32:00 CDT, Duration: 30 day, Stop date: 01/09/17 23:31:00 CDT No Longer Active 12/11/2016 [facility] Glucagon 1 mg, Route: IM, Drug form: PDR/INJ, PRN, Dosing Weight 57.7, kg, PRN Blood Glucose Results, Start date: 12/10/16 23:32:00 CDT, Duration: 30 day, Stop date: 01/09/17 23:31:00 CDT No Longer Active 12/11/2016 [facility] Procrit 7,500 unit, 0.75 mL, Route: SUB-Q, Drug form: INJ, After Dialysis, Dosing Weight 72.727, kg, PRN Dialysis, Start date: 12/10/16 23:18:00 CDT, Duration: 30 day, Stop date: 01/09/17 23:17:00 CDTNotes: (Same as: Procrit) epoetin jay 33144 unit/1 ml VL. For dialysis use only. (Procrit) WASTE: F/P - Red; E -Red MEDICATION WASTE Product Size: 30090 unit Product Wasted: ___ unit No Longer Active 12/11/2016 [facility] Saline Flush 0.9% 10 ml, Route: IVP, Drug Form: INJ, Dosing Weight 72.727, kg, PRN, PRN Line Flush, Start date: 12/10/16 23:11:00 CDT, Duration: 30 day, Stop date: 01/09/17 23:10:00 CDTNotes: (Same as: BD Posiflush) No Longer Active 12/11/2016 [facility] Nystatin 100 UNT/MG Topical Powder 1 appl, Route: TOP, PRN, Drug form: PWDR, PRN For Fungal Prophylaxis, Start date: 12/10/16 23:11:00 CDT, Duration: 30 day, Stop date: 01/09/17 23:10:00 CDTNotes: (Same as:Mycostatin, Nilstat) For external use only. No Longer Active 12/11/2016 [facility] Allergies, Adverse Reactions, Alerts No Known Medication Allergies Immunizations No Data Provided for This Section Results Order Name Results Value Reference Range Date Interpretation Comments Source URINE AND STOOL UA Urobilinogen <=1.0 mg/dL 0.1 - 1.0 01/05/2018 [facility] URINE AND STOOL UA Mucus Few /LPF None Seen /LPF 01/05/2018 [facility] URINE AND STOOL UA Bacteria Moderate /HPF None Seen /HPF 01/05/2018 [facility] URINE AND STOOL UA Sq Epi Many /LPF Few /LPF 01/05/2018 [facility] URINE AND STOOL UA WBC >182 0 - 5 01/05/2018 [facility] URINE AND STOOL UA Leuk Est Large *ABN* (01/05/18 12:25 AM) Negative 01/05/2018 [facility] URINE AND STOOL UA RBC 14 0 - 2 01/05/2018 [facility] URINE AND STOOL UA Blood Moderate *ABN* (01/05/18 12:25 AM) Negative 01/05/2018 [facility] URINE AND STOOL UA Bili Negative *NA* (01/05/18 12:25 AM) Negative 01/05/2018 [facility] URINE AND STOOL UA Nitrite Positive *ABN* (01/05/18 12:25 AM) Negative 01/05/2018 [facility] URINE AND STOOL UA Protein Negative mg/dL Negative mg/dL 01/05/2018 [facility] URINE AND STOOL UA pH 5.0 5.0 - 8.0 01/05/2018 [facility] URINE AND STOOL UA Ketones Negative mg/dL Negative mg/dL 01/05/2018 [facility] URINE AND STOOL UA Glucose Negative mg/dL Negative mg/dL 01/05/2018 [facility] URINE AND STOOL UA Color Yellow *NA* (01/05/18 12:25 AM) Yellow 01/05/2018 [facility] URINE AND STOOL UA Spec Grav 1.020 <=1.030 01/05/2018 [facility] URINE AND STOOL UA Turbidity Marked *ABN* (01/05/18 12:25 AM) Clear 01/05/2018 [facility] CARDIAC ENZYMES CK MB <1.0 0.5 - 3.6 01/05/2018 [facility] CARDIAC ENZYMES Troponin-I <0.02 0.00 - 0.40 01/05/2018 [facility] CARDIAC ENZYMES Total CK 105 12 - 191 01/05/2018 [facility] CARDIAC ENZYMES CK MB Index <1.0 0.0 - 2.5 01/05/2018 [facility] CHEM PANEL eGFR 75 01/05/2018 Result Comment: The eGFR is calculated using the [...] from the National Kidney Disease Education Program (NKDEP) which additionally recommends that when the eGFR is used in patients with extremes of body mass index for purposes of drug dosing, the eGFR should be multiplied by the estimated BMI. [facility] CHEM PANEL Albumin Lvl 3.5 3.5 - 5.0 01/05/2018 [facility] CHEM PANEL Calcium Lvl 8.8 8.5 - 10.5 01/05/2018 [facility] CHEM PANEL Chloride Lvl 106 95 - 109 01/05/2018 [facility] CHEM PANEL CO2 27 24 - 32 01/05/2018 [facility] CHEM PANEL Sodium Lvl 138 135 - 145 01/05/2018 [facility] CHEM PANEL Potassium Lvl 3.6 3.5 - 5.1 01/05/2018 [facility] CHEM PANEL BUN 17 7 - 22 01/05/2018 [facility] CHEM PANEL Creatinine Lvl 0.90 0.50 - 1.40 01/05/2018 [facility] CHEM PANEL B/C Ratio 19 6 - 25 01/05/2018 [facility] CHEM PANEL Bili Total 0.4 0.2 - 1.3 01/05/2018 [facility] CHEM PANEL Globulin 4.4 2.7 - 4.2 01/05/2018 [facility] CHEM PANEL AGAP 8.6 10.0 - 20.0 01/05/2018 [facility] CHEM PANEL A/G Ratio 0.8 0.7 - 1.6 01/05/2018 [facility] CHEM PANEL Glucose Lvl 77 70 - 99 01/05/2018 [facility] CHEM PANEL Total Protein 7.9 6.4 - 8.4 01/05/2018 [facility] CHEM PANEL AST 35 0 - 37 01/05/2018 [facility] CHEM PANEL Alk Phos 51 39 - 136 01/05/2018 [facility] CHEM PANEL ALT 52 0 - 65 01/05/2018 [facility] PTT 30.0 22.9 - 35.8 01/05/2018 [facility] PT 12.5 12.0 - 14.7 01/05/2018 [facility] INR 0.93 0.85 - 1.17 01/05/2018 [facility] MCHC 34.4 32.0 - 36.0 01/05/2018 [facility] MPV 9.1 7.4 - 10.4 01/05/2018 [facility] MCH 31.8 27.0 - 31.0 01/05/2018 [facility] Platelet 306 133 - 450 01/05/2018 [facility] RDW 13.9 11.5 - 14.5 01/05/2018 [facility] MCV 92.3 80.0 - 98.0 01/05/2018 [facility] Hct 39.1 36.0 - 48.0 01/05/2018 [facility] WBC 10.1 3.7 - 10.4 01/05/2018 [facility] Hgb 13.4 12.0 - 16.0 01/05/2018 [facility] RBC 4.23 4.20 - 5.40 01/05/2018 [facility] Segs-Bands # 3.3 1.5 - 8.1 01/05/2018 [facility] Monocytes 12.0 2.0 - 12.0 01/05/2018 [facility] Segs 32.3 45.0 - 75.0 01/05/2018 [facility] Lymphocytes 50.4 20.0 - 40.0 01/05/2018 [facility] Monocytes # 1.2 0.0 - 0.8 01/05/2018 [facility] HEMATOLOGY Eosinophils 4.9 0.0 - 4.0 01/05/2018 [facility] HEMATOLOGY Eosinophils # 0.5 0.0 - 0.5 01/05/2018 [facility] HEMATOLOGY Basophils 0.4 0.0 - 1.0 01/05/2018 [facility] Lymphocytes # 5.1 1.0 - 5.5 01/05/2018 [facility] CHEM PANEL eGFR 10 12/11/2016 Result Comment: The eGFR is calculated using the [...] from the National Kidney Disease Education Program (NKDEP) which additionally recommends that when the eGFR is used in patients with extremes of body mass index for purposes of drug dosing, the eGFR should be multiplied by the estimated BMI. [facility] CHEM PANEL Chloride Lvl 100 95 - 109 12/11/2016 [facility] CHEM PANEL Sodium Lvl 138 135 - 145 12/11/2016 [facility] CHEM PANEL Potassium Lvl 3.6 3.5 - 5.1 12/11/2016 [facility] CHEM PANEL BUN 33 7 - 22 12/11/2016 [facility] CHEM PANEL Creatinine Lvl 4.83 0.50 - 1.40 12/11/2016 [facility] CHEM PANEL Calcium Lvl 8.0 8.5 - 10.5 12/11/2016 [facility] CHEM PANEL CO2 27 24 - 32 12/11/2016 [facility] CHEM PANEL AGAP 14.6 10.0 - 20.0 12/11/2016 [facility] CHEM PANEL Glucose Lvl 71 70 - 99 12/11/2016 [facility] HEMATOLOGY Basophils 0.6 0.0 - 1.0 12/11/2016 [facility] HEMATOLOGY Eosinophils 1.7 0.0 - 4.0 12/11/2016 [facility] HEMATOLOGY Monocytes 7.5 2.0 - 12.0 12/11/2016 [facility] HEMATOLOGY Lymphocytes 7.5 20.0 - 40.0 12/11/2016 [facility] HEMATOLOGY Eosinophils # 0.1 0.0 - 0.5 12/11/2016 [facility] HEMATOLOGY Monocytes # 0.5 0.0 - 0.8 12/11/2016 [facility] HEMATOLOGY Lymphocytes # 0.5 1.0 - 5.5 12/11/2016 [facility] HEMATOLOGY Segs 82.7 45.0 - 75.0 12/11/2016 [facility] HEMATOLOGY Segs-Bands # 5.8 1.5 - 8.1 12/11/2016 [facility] Hgb 9.2 12.0 - 16.0 12/11/2016 [facility] HEMATOLOGY MCV 85.5 80.0 - 98.0 12/11/2016 [facility] MCH 28.9 27.0 - 31.0 12/11/2016 [facility] MCHC 33.8 32.0 - 36.0 12/11/2016 [facility] HEMATOLOGY Hct 27.4 36.0 - 48.0 12/11/2016 [facility] MPV 7.1 7.4 - 10.4 12/11/2016 [facility] Platelet 203 133 - 450 12/11/2016 [facility] RDW 14.5 11.5 - 14.5 12/11/2016 [facility] RBC 3.20 4.20 - 5.40 12/11/2016 [facility] WBC 7.0 3.7 - 10.4 12/11/2016 [facility] CHEM PANEL eGFR 3 12/11/2016 Result Comment: The eGFR is calculated using the [...] from the National Kidney Disease Education Program (NKDEP) which additionally recommends that when the eGFR is used in patients with extremes of body mass index for purposes of drug dosing, the eGFR should be multiplied by the estimated BMI. [facility] CHEM PANEL CO2 21 24 - 32 12/11/2016 [facility] CHEM PANEL Chloride Lvl 99 95 - 109 12/11/2016 [facility] CHEM PANEL AGAP 25.7 10.0 - 20.0 12/11/2016 [facility] CHEM PANEL Calcium Lvl 7.7 8.5 - 10.5 12/11/2016 [facility] CHEM PANEL Sodium Lvl 139 135 - 145 12/11/2016 [facility] CHEM PANEL Potassium Lvl 6.7 3.5 - 5.1 12/11/2016 Result Comment: Critical Result(s) called to Debra Lindquist RN at 12/11/2016 00:09 by RA. Read back OK. [facility] CHEM PANEL Glucose Lvl 84 70 - 99 12/11/2016 [facility] CHEM PANEL BUN 114 7 - 22 12/11/2016 [facility] CHEM PANEL Creatinine Lvl 12.40 0.50 - 1.40 12/11/2016 [facility] HEMATOLOGY Platelet 223 133 - 450 12/11/2016 [facility] MPV 7.4 7.4 - 10.4 12/11/2016 [facility] RDW 14.6 11.5 - 14.5 12/11/2016 [facility] MCHC 33.4 32.0 - 36.0 12/11/2016 [facility] MCH 28.9 27.0 - 31.0 12/11/2016 [facility] HEMATOLOGY MCV 86.4 80.0 - 98.0 12/11/2016 [facility] Hct 27.2 36.0 - 48.0 12/11/2016 [facility] HEMATOLOGY WBC 8.6 3.7 - 10.4 12/11/2016 [facility] Hgb 9.1 12.0 - 16.0 12/11/2016 [facility] RBC 3.15 4.20 - 5.40 12/11/2016 [facility] HEMATOLOGY Basophils 0.4 0.0 - 1.0 12/11/2016 [facility] HEMATOLOGY Segs-Bands # 7.6 1.5 - 8.1 12/11/2016 [facility] HEMATOLOGY Monocytes 5.9 2.0 - 12.0 12/11/2016 [facility] HEMATOLOGY Lymphocytes 4.2 20.0 - 40.0 12/11/2016 [facility] HEMATOLOGY Segs 89.1 45.0 - 75.0 12/11/2016 [facility] HEMATOLOGY Eosinophils 0.4 0.0 - 4.0 12/11/2016 [facility] Lymphocytes # 0.4 1.0 - 5.5 12/11/2016 [facility] Monocytes # 0.5 0.0 - 0.8 12/11/2016 [facility] Anisocyte 1+ *ABN* (12/10/16 11:20 PM) None Seen 12/11/2016 [facility] HEMATOLOGY Plt Morph Normal (12/10/16 11:20 PM) 12/11/2016 [facility] IMMUNOLOGY Hep Bs Ab <3.1 <=7.4 mIU/mL 12/11/2016 [facility] IMMUNOLOGY Hep Bs Ag Negative *NA* (12/10/16 11:20 PM) Negative 12/11/2016 [facility] SPECIAL CHEMISTRY Hgb A1C 4.8 <=5.6 % 12/11/2016 [facility] Pathology Reports No Data Provided for This Section Diagnostic Reports Report Value Date Source Ext Lower Venous Doppler Unilat US Clinical Indication: Lower extremity pain; symptoms for one week Comparison: None TECHNIQUE: Sonographic evaluation of the rightlower extremity veins was performed using high resolution B-mode imaging, along with pulse and color Doppler imaging. FINDINGS: Right lower extremity: The common femoral vein, femoral vein, popliteal vein and visualized posterior tibial/calf veins are patent. There is no echogenic debris to suggest deep venous thrombosis. The saphenofemoral junction is unremarkable. IMPRESSION: No evidence of right lower extremity DVT SL: [id number] 01/04/2018 [facility] Spine cervical wo contrast CT CT cervical spine without contrast Clinical Indication: Right-sided paresthesias. Comparison: None Technique: Multi-detector CT imaging of the cervical spine is performed. Coronal and sagittal reconstructions were obtained. CT imaging was performed with exposure control parameters to reduce radiation dose. CT Radiation Dose DLP 900.41 mGy-cm FINDINGS: There is normal alignment of the cervical spine. There are no fractures or subluxations. The craniocervical junction is normal. The atlanto-dental alignment appears unremarkable. Facet joints are intact. Mild multilevel degenerative changes. The prevertebral soft tissues are normal. IMPRESSION: 1. No fractures or subluxations of the cervical spine. SL: SGKERRYRI-[place] 01/04/2018 [facility] 1view DX Clinical Indication: - right hand numbness; Comparison: 12/10/2016 FINDINGS: AP chest radiographs shows normal lung volumes without interstitial or airspace opacities, pleural effusions or pneumothorax. The heart size and pulmonary vasculature are normal. The trachea is midline. There are no clinically significant osseous abnormalities noted. IMPRESSION: No chest radiographic evidence of acute cardiopulmonary disease. SL: WR4-M 01/04/2018 [facility] 1view DX Clinical Indication: Shortness of Breath Comparison: February 24, 2012 FINDINGS: The frontal chest radiograph shows normal lung volumes with patchy airspace opacities in bilateral lower lungs. Additionally, small to moderate right pleural effusion is present with small left pleural effusion. Upper lungs appear clear. There is no pneumothorax.. The cardiomediastinal contours are normal. The trachea is midline. There are no clinically significant osseous abnormalities noted. Large bore right internal jugular catheter is present with the tip in the right atrium. Tracheostomy is present with the tip in satisfactory location. IMPRESSION: 1. Patchy airspace disease is present in bilateral lung bases. 2. Small to moderate right and small left pleural effusions are present. 3. Tracheostomy tube and large bore right internal jugular catheter are present in satisfactory locations. SL: 82 12/10/2016 [facility] Consultation Notes No Data Provided for This Section Discharge Summaries No Data Provided for This Section History and Physicals No Data Provided for This Section Vital Signs Vital Sign Value Date Comments Source Systolic (mm Hg) 118 01/05/2018 [facility] Diastolic (mm Hg) 76 01/05/2018 [facility] Respitory Rate 16 01/05/2018 [facility] Temperature Oral (F) 98 F 01/05/2018 [facility] Heart Rate 86 01/05/2018 [facility] Heart Rate 83 01/04/2018 [facility] Respitory Rate 18 01/04/2018 [facility] Systolic (mm Hg) 127 01/04/2018 [facility] Diastolic (mm Hg) 87 01/04/2018 [facility] Temperature Oral (F) 98.7 F 01/04/2018 [facility] Systolic (mm Hg) 129 12/11/2016 [facility] Diastolic (mm Hg) 79 12/11/2016 [facility] Respitory Rate 20 12/11/2016 [facility] Systolic (mm Hg) 144 12/11/2016 [facility] Diastolic (mm Hg) 83 12/11/2016 [facility] Respitory Rate 25 12/11/2016 [facility] Systolic (mm Hg) 135 12/11/2016 [facility] Diastolic (mm Hg) 76 12/11/2016 [facility] Respitory Rate 20 12/11/2016 [facility] BMI Calculated 25.69 12/11/2016 [facility] Height 149.86 cm 12/11/2016 [facility] Weight 57.7 12/11/2016 [facility] Height 149.86 cm 12/11/2016 [facility] Weight 57.007 12/11/2016 [facility] BMI Calculated 25.38 12/11/2016 [facility] Encounters Location Location Details Encounter Type Encounter Number Reason For Visit Attending Provider ADM Date DC Date Status Source OD [id number] [id number] - OBESITY JUDY PONCE 02/24/2012 [id number] Osmund Agbo 12/11/2016 12/11/2016 [facility] Emergency [id number] Tim Pham 01/04/2018 01/05/2018 [facility] Procedures Procedure Code Date Perfomer Comments Source Hysterectomy [id number] 12/08/2014 [facility] section [id number] [facility] Tracheostomy [id number] [facility] Assessment and Plan Assessment and Plan Date Source Extracted from:Title: ICU Discharge Author: Ray Shepherd MD Date: [...] Hemodialysis CONSULTANTS: Attending: Eusebio Valiente MD.....Office: .....MSO: [id number] Status: Inpatient Code Status: None Specified=FULL CODE [...] Working DRG: MISC DISORDERS OF NUTRITION,METABOLISM,FLUIDS/ELECTROLYTES W/O SHELTER Diet: Diet Renal 80,2,2,1(pro,sod,pot,phos) PCP: PCP, Maria Isabel BOURGEOIS.....Office: (not on file).....MSO: [id number] Consulting Physicians: Chandler Wooten MD Office: MSO: [id number] Service: Nephrology SUMMARY: 46-year-old female who carries a [...] coordinating the discharge of this patient. Extracted from:Title: Progress Note Complex * Author: Chandler Wooten MD Date: 12/11/16 Impression and Plan ESRD HYPERKALEMIA--RESOLVED ANEMIA HTN HX VASCULITIS RESP FAILURE HD TOMORROW CONTINUE MEDS STABLE RENAL BHATTI Extracted from:Title: .USAP Critical Care Note Author: Eusebio Valiente MD Date: 12/10/16 Impression and Plan 12/11/2016 [facility] Plan of Care No Data Provided for This Section Social History Social History Date Source Social History TypeResponse Smoking Status Never smoker; Type: Cigarettes; Previous treatment: None; Ready to change: No; Concerns about tobacco use in household: No; Exposure to Tobacco Smoke None; Cigarette Smoking Last 365 Days No; Reg Smoking Cessation Counseling No entered on: 01/04/18 01/05/2018 [facility] Social History TypeResponse Smoking Status Never smoker; Exposure to Tobacco Smoke None; Cigarette Smoking Last 365 Days No; Reg Smoking Cessation Counseling No 12/11/2016 [facility] Family History No Data Provided for This Section Advance Directives No Data Provided for This Section Functional Status No Data Provided for This Section
--- OUTSIDE RECORDS SUMMARY | 2019-04-22 15:29 | XMS REPORT ---
Author Author [facility] Address Unknown Phone Unavailable Care Team Providers Care Inspector Final Assembly Mechanical Name Role Phone Belem HOWE Unavailable Unavailable Payers Payer Name Policy Type Policy Number Effective Date Expiration Date Problems This patient has no known problems. Allergies, Adverse Reactions, Alerts Allergy Name Allergy Type Status Severity Reaction(s) Onset Date Inactive Date Treating Clinician Comments No Known Allergies DA Active U 2012-05-15 00:00:00 Medications This patient has no known medications. Results Test Description Test Time Test Comments Text Results Atomic Results Result Comments CT ABDOMEN/PELVIS W 2019-04-19 10:16:00 [place] [address] Patient Name: MG MUHAMMAD MR #: [id number] : 1970 Age/Sex: 49/F Req #: [id number] Adm Physician: Ordered by: JERRELL HOWE MD Report #: [id number] Location: CT Room/Bed: Procedure: [id number] CT/CT ABDOMEN/PELVIS W Exam Date: 04/19/19 Exam Time: 929 REPORT STATUS: Signed ADDENDUM #[address] Jerrell Howe at 2:35PM 04/19/2019 Signed by: Marleny Connor MD on 04/19/2019 2:36 PM ORIGINAL REPORT EXAM: CT Abdomen and Pelvis WITH intravenous contrast INDICATION: Abdominal pain COMPARISON: None. TECHNIQUE: Abdomen and pelvis were scanned utilizing a multidetector helical scanner from the lung base to the pubic symphysis after administration of IV contrast. Coronal and sagittal reformations were obtained. Routine protocol was performed. Scan was performed when during portal venous phase. IV CONTRAST: 100mL of Isovue 370 ORAL C ONTRAST: Gastrografin. COMPLICATIONS: None RADIATION DOSE: Total DLP: 677.4 mGy*cm Dose modulation, iterative reconstruction, and/or weight based adjustment of the mA/kV was utilized to reduce the radiation dose to as low as reasonably achievable. FINDINGS: LOWER THORAX: Bibasilar dependent subsegmental atelectasis. HEPATOBILIARY: Diffuse hepatic steatosis. No focal liver lesions. Normal decompressed gallbladder. SPLEEN: No splenomegaly. PANCREAS: No focal masses or ductal dilatation. ADRENALS: No adrenal nodules. KIDNEYS/URETERS: 9 mm distal right ureteral calculus with resulting severe right hydroureteronephrosis. No left renal calculi. No left hydronephrosis. PELVIC ORGANS/BLADDER: Unremarkable. PERITONEUM / RETROPERITONEUM: No free air or fluid. LYMPH NODES: No lymphadenopathy. VESSELS: Normal. GI TRACT: Mild colonic diverticulosis. No CT evidence of diverticulitis. No bowel obstruction. No abnormal bowel wall thickening. Normal appendix. BONES AND SOFT TISSUES: No acute osseous injury. No suspicious lytic or blastic lesions. IMPRESSION: 9 mm right distal ureteral calculus with resulting severe right hydroureteronephrosis. No left renal calculi or hydronephrosis. Mild colonic diverticulosis. No CT evidence of diverticulitis. Hepatic steatosis. Signed by: Marleny Connor MD on 04/19/2019 10:23 AM Dictated By: MARLENY CONNOR MD [id number] Transcribed By: MORENO on 04/19/19 1023 COPY TO: JERRELL HOWE MD COMPREHENSIVE METABOLIC PANEL 2019-01-22 15:43:00 SODIUM (test code=NA) 139 mmol/L 136-145 POTASSIUM (test code=K) 4.1 mmol/L 3.5-5.1 CHLORIDE (test code=CL) 104 mmol/L 101-109 CARBON DIOXIDE (test code=CO2) 26.8 mmol/L 21-32 ANION GAP (test code=GAP) 12 mmol/L 10-20 GLUCOSE (test code=GLU) 89 mg/dL 74-106 BLOOD UREA NITROGEN (test code=BUN) 14 mg/dL 3-21 CREATININE (test code=CREAT) 0.76 mg/dL 0.55-1.3 BUN/CREATININE RATIO (test code=BUN/CREA) 18.4 10-20 TOTAL PROTEIN (test code=PROT) 7.6 g/dL 6.5-8.4 ALBUMIN (test code=ALB) 3.4 g/dL 3.4-4.8 GLOBULIN (test code=GLOB) 4.2 G/DL 1-10 ALBUMIN/GLOBULIN RATIO (test code=A/G) 0.81 RATIO 0.75-1.50 CALCIUM (test code=CA) 8.0 mg/dL 8.4-10.2 BILIRUBIN TOTAL (test code=BILT) 0.20 mg/dL 0.0-1.0 SGOT/AST (test code=AST) 49 U/L 6-32 SGPT/ALT (test code=ALT) 66 U/L 12-78 Note: Change in REFERENCE RANGE due to new reagent method. ALKALINE PHOSPHATASE TOTAL (test code=ALKP) 53 U/L 38-126 [id number] 15:43:00* Test Item Value Reference Range Comments MAGNESIUM (test code=MAG) 1.9 mg/dL 1.6-2.3 THYROID STIMULATING [id number] 15:43:00* Test Item Value Reference Range Comments THYROID STIMULATING HORMONE (test code=TSH) 0.43 uIU/mL 0.36-3.74 TSH REFERENCE RANGES: EUTHYROID: 0.4 - 4.3 HYPO : >7.6 HYPER : <0.1 CPK-MB [id number] 15:43:00* Test Item Value Reference Range Comments CREATINE KINASE (CK) (test code=CK) 88 U/L 26-192 CKMB (test code=CKMBT) 0.8 ng/mL 0.0-5.0 RELATIVE % INDEX (test code=REL%) 0.9 % [id number] 15:43:00* Test Item Value Reference Range Comments TROPONIN-I (test code=TROPI) <0.015 ng/mL 0.00-0.056 B-TYPE NATRIURETIC [id number] 15:43:00* Test Item Value Reference Range Comments B-TYPE NATRIURETIC PEPTIDE (test code=BNP) 69.8 pg/mL 0-100 [id number] 15:39:00* Test Item Value Reference Range Comments D-DIMER (test code=DDIMER) < 100 ng/ml < 600 COMPREHENSIVE METABOLIC [id number] 15:26:00* Test Item Value Reference Range Comments SODIUM (test code=NA) 139 mmol/L 136-145 POTASSIUM (test code=K) 4.1 mmol/L 3.5-5.1 CHLORIDE (test code=CL) 104 mmol/L 101-109 CARBON DIOXIDE (test code=CO2) 26.8 mmol/L 21-32 ANION GAP (test code=GAP) 12 mmol/L 10-20 GLUCOSE (test code=GLU) 89 mg/dL 74-106 BLOOD UREA NITROGEN (test code=BUN) 14 mg/dL 3-21 CREATININE (test code=CREAT) 0.76 mg/dL 0.55-1.3 BUN/CREATININE RATIO (test code=BUN/CREA) 18.4 10-20 TOTAL PROTEIN (test code=PROT) gram/dL 6.4-8.2 ALBUMIN (test code=ALB) g/dL 3.4-5.0 GLOBULIN (test code=GLOB) g/dL 2.7-4.2 ALBUMIN/GLOBULIN RATIO (test code=A/G) 0.75-1.50 CALCIUM (test code=CA) 8.0 mg/dL 8.4-10.2 BILIRUBIN TOTAL (test code=BILT) mg/dL 0.2-1.2 SGOT/AST (test code=AST) IUnit/L 15-37 SGPT/ALT (test code=ALT) U/L 10-69 ALKALINE PHOSPHATASE TOTAL (test code=ALKP) IUnit/L 45-117 [id number] 15:26:00* Test Item Value Reference Range Comments MAGNESIUM (test code=MAG) mg/dL 1.8-2.4 THYROID STIMULATING [id number] 15:26:00* Test Item Value Reference Range Comments THYROID STIMULATING HORMONE (test code=TSH) uIU/mL 0.36-3.74 CPK-MB [id number] 15:26:00* Test Item Value Reference Range Comments CREATINE KINASE (CK) (test code=CK) IUnit/L 26-208 CKMB (test code=CKMBT) ng/mL 0-6.0 RELATIVE % INDEX (test code=REL%) % [id number] 15:26:00* Test Item Value Reference Range Comments TROPONIN-I (test code=TROPI) ng/mL 0-0.045 URINALYSIS [id number] 15:24:00* Test Item Value Reference Range Comments UA COLOR (test code=COLU) LIGHT YELLOW YELLOW UA APPEARANCE (test code=APPU) HAZY CLEAR UA GLUCOSE DIPSTICK (test code=DGLUU) norm mg/dL NEGATIVE UA BILIRUBIN DIPSTICK (test code=BILU) NEGATIVE mg/dL NEGATIVE UA KETONE DIPSTICK (test code=KETU) neg mg/dL NEGATIVE UA SPECIFIC GRAVITY (test code=SGU) 1.015 1.001-1.035 UA BLOOD DIPSTICK (test code=CJ) neg Miles/uL NEGATIVE UA PH DIPSTICK (test code=ZULAY) 5.0 5.0-8.0 UA PROTEIN DIPSTICK (test code=PROU) neg mg/dL Neg-15 UA UROBILINIOGEN DIPSTICK (test code=URO) norm mg/dL 0.0-0.2 UA NITRITE DIPSTICK (test code=BRANDAN) NEGATIVE NEGATIVE UA LEUKOCYTE ESTERASE DIPSTICK (test code=LEUU) 500 Senait/uL (3+) uL NEGATIVE UA WBC (test code=WBCU) 40-50 per HPF 0-5 UA RBC (test code=RBCU) 0-3 per HPF 0-5 UA EPITHELIAL CELLS (test code=EPIU) Rare (0-1/hpf) per HPF Few UA BACTERIA (test code=BACU) MODERATE per HPF NONE UA MUCUS (test code=MUCU) FEW per LPF NONE-FEW Urine Source? Clean CatchUR HCG [id number] 15:24:00* Test Item Value Reference Range Comments UR HCG QUAL (test code=HCGQLU) NEGATIVE This HCGQL test is NOT applicable for MALE patients.Check with nurse about probable order error.If Tumor Marker Test needed, nurse should order test "HCGTU"(Test #550.94470) Urine Source? Clean CatchDRUGS OF ABUSE SCREEN [id number] 15:24:00* Test Item Value Reference Range Comments URN COCAINE (test code=COCAURN) NEGATIVE NEGATIVE URN CANNABINOIDS (test code=CANNABURN) NEGATIVE NEGATIVE URN AMPHETAMINE (test code=AMPHETURN) NEGATIVE NEGATIVE URN BARBITURATE (test code=BARBITURN) NEGATIVE NEGATIVE URN BENZODIAZEPINE (test code=BENZOURN) NEGATIVE NEGATIVE URN OPIATES (test code=OPIATURN) NEGATIVE NEGATIVE URN PHENCYCLIDINE (PCP) (test code=PHENCURN) NEGATIVE NEGATIVE Urine Source? Clean CatchURINALYSIS [id number] 15:21:00* Test Item Value Reference Range Comments UA COLOR (test code=COLU) LIGHT YELLOW YELLOW UA APPEARANCE (test code=APPU) HAZY CLEAR UA GLUCOSE DIPSTICK (test code=DGLUU) norm mg/dL NEGATIVE UA BILIRUBIN DIPSTICK (test code=BILU) NEGATIVE mg/dL NEGATIVE UA KETONE DIPSTICK (test code=KETU) neg mg/dL NEGATIVE UA SPECIFIC GRAVITY (test code=SGU) 1.015 1.001-1.035 UA BLOOD DIPSTICK (test code=CJ) neg Miles/uL NEGATIVE UA PH DIPSTICK (test code=ZULAY) 5.0 5.0-8.0 UA PROTEIN DIPSTICK (test code=PROU) neg mg/dL Neg-15 UA UROBILINIOGEN DIPSTICK (test code=URO) norm mg/dL 0.0-0.2 UA NITRITE DIPSTICK (test code=BRANDAN) NEGATIVE NEGATIVE UA LEUKOCYTE ESTERASE DIPSTICK (test code=LEUU) 500 Senait/uL (3+) uL NEGATIVE UA WBC (test code=WBCU) per HPF 0-5 UA RBC (test code=RBCU) per HPF 0-5 UA EPITHELIAL CELLS (test code=EPIU) per HPF Few UA BACTERIA (test code=BACU) per HPF NONE Urine Source? Clean CatchUR HCG [id number] 15:21:00* Test Item Value Reference Range Comments UR HCG QUAL (test code=HCGQLU) NEGATIVE This HCGQL test is NOT applicable for MALE patients.Check with nurse about probable order error.If Tumor Marker Test needed, nurse should order test "HCGTU"(Test #550.80153) Urine Source? Clean CatchDRUGS OF ABUSE SCREEN [id number] 15:21:00* Test Item Value Reference Range Comments URN COCAINE (test code=COCAURN) NEGATIVE NEGATIVE URN CANNABINOIDS (test code=CANNABURN) NEGATIVE NEGATIVE URN AMPHETAMINE (test code=AMPHETURN) NEGATIVE NEGATIVE URN BARBITURATE (test code=BARBITURN) NEGATIVE NEGATIVE URN BENZODIAZEPINE (test code=BENZOURN) NEGATIVE NEGATIVE URN OPIATES (test code=OPIATURN) NEGATIVE NEGATIVE URN PHENCYCLIDINE (PCP) (test code=PHENCURN) NEGATIVE NEGATIVE Urine Source? Clean CatchURINALYSIS [id number] 15:16:00* Test Item Value Reference Range Comments UA COLOR (test code=COLU) LIGHT YELLOW YELLOW UA APPEARANCE (test code=APPU) HAZY CLEAR UA GLUCOSE DIPSTICK (test code=DGLUU) norm mg/dL NEGATIVE UA BILIRUBIN DIPSTICK (test code=BILU) NEGATIVE mg/dL NEGATIVE UA KETONE DIPSTICK (test code=KETU) neg mg/dL NEGATIVE UA SPECIFIC GRAVITY (test code=SGU) 1.015 1.001-1.035 UA BLOOD DIPSTICK (test code=CJ) neg Miles/uL NEGATIVE UA PH DIPSTICK (test code=ZULAY) 5.0 5.0-8.0 UA PROTEIN DIPSTICK (test code=PROU) neg mg/dL Neg-15 UA UROBILINIOGEN DIPSTICK (test code=URO) norm mg/dL 0.0-0.2 UA NITRITE DIPSTICK (test code=BRANDAN) NEGATIVE NEGATIVE UA LEUKOCYTE ESTERASE DIPSTICK (test code=LEUU) 500 Senait/uL (3+) uL NEGATIVE UA WBC (test code=WBCU) per HPF 0-5 UA RBC (test code=RBCU) per HPF 0-5 UA EPITHELIAL CELLS (test code=EPIU) per HPF Few UA BACTERIA (test code=BACU) per HPF NONE Urine Source? Clean CatchUR HCG [id number] 15:16:00* Test Item Value Reference Range Comments UR HCG QUAL (test code=HCGQLU) NEGATIVE This HCGQL test is NOT applicable for MALE patients.Check with nurse about probable order error.If Tumor Marker Test needed, nurse should order test "HCGTU"(Test #550.53894) Urine Source? Clean CatchDRUGS OF ABUSE SCREEN [id number] 15:16:00* Test Item Value Reference Range Comments URN COCAINE (test code=COCAURN) NEGATIVE URN CANNABINOIDS (test code=CANNABURN) NEGATIVE URN AMPHETAMINE (test code=AMPHETURN) NEGATIVE URN BARBITURATE (test code=BARBITURN) NEGATIVE URN BENZODIAZEPINE (test code=BENZOURN) NEGATIVE URN OPIATES (test code=OPIATURN) NEGATIVE URN PHENCYCLIDINE (PCP) (test code=PHENCURN) NEGATIVE Urine Source? Clean Catch- XR CHEST 1 [id number] 15:16:00 Name: MG MUHAMMAD [facility] : 1970 Age/S:49 /F [address] [facility] Unit#:[id number] Loc: [place] [address] Phys: Kylah Hernandez MD Dis Date: PHONE #: [phone] Status: REG ER FAX #: [phone] Exam Date: 01/22/2019 Reason: chest pain EXAMS: CPT CODE: [id number] XR CHEST 1 V [id number] REASON FOR EXAM: chest pain Exam Order Date: 01/22/2019 2:46 PM Ordering M.Krysten: Kylah Hernandez MD PROCEDURE: - XR CHEST 1 V COMPARISON: None. FINDINGS: The lungs are clear. There is no pleural effusion or pneumothorax. Pulmonary vascularity is within normal limits. Cardiomediastinal silhouette is normal in size for technique. The mediastinal contours are within normal limits. Musculoskeletal structures are within normal limits. The visualized upper abdomen is within normal limits. IMPRESSION: No acute car diopulmonary process. Electronically Signed by Edgardo Floyd MD on at 1516 Reported and signed by: Edgardo Floyd MD CC: Kylah Hernandez MD Techno logist: TannerDanya Trnscrpt Data: ([id number]) [id number] Orig Print D/T: S: 01/22/2019 (9237) PAGE 1 Signed Report URINALYSIS [id number] 15:15:00* Test Item Value Reference Range Comments UA COLOR (test code=COLU) LIGHT YELLOW YELLOW UA APPEARANCE (test code=APPU) HAZY CLEAR UA GLUCOSE DIPSTICK (test code=DGLUU) norm mg/dL NEGATIVE UA BILIRUBIN DIPSTICK (test code=BILU) NEGATIVE mg/dL NEGATIVE UA KETONE DIPSTICK (test code=KETU) neg mg/dL NEGATIVE UA SPECIFIC GRAVITY (test code=SGU) 1.015 1.001-1.035 UA BLOOD DIPSTICK (test code=CJ) neg Miles/uL NEGATIVE UA PH DIPSTICK (test code=ZULAY) 5.0 5.0-8.0 UA PROTEIN DIPSTICK (test code=PROU) neg mg/dL Neg-15 UA UROBILINIOGEN DIPSTICK (test code=URO) norm mg/dL 0.0-0.2 UA NITRITE DIPSTICK (test code=BRANDAN) NEGATIVE NEGATIVE UA LEUKOCYTE ESTERASE DIPSTICK (test code=LEUU) 500 Senait/uL (3+) uL NEGATIVE UA WBC (test code=WBCU) per HPF 0-5 UA RBC (test code=RBCU) per HPF 0-5 UA EPITHELIAL CELLS (test code=EPIU) per HPF Few UA BACTERIA (test code=BACU) per HPF NONE Urine Source? Clean CatchUR HCG [id number] 15:15:00* Test Item Value Reference Range Comments UR HCG QUAL (test code=HCGQLU) Urine Source? Clean CatchDRUGS OF ABUSE SCREEN [id number] 15:15:00* Test Item Value Reference Range Comments URN COCAINE (test code=COCAURN) NEGATIVE URN CANNABINOIDS (test code=CANNABURN) NEGATIVE URN AMPHETAMINE (test code=AMPHETURN) NEGATIVE URN BARBITURATE (test code=BARBITURN) NEGATIVE URN BENZODIAZEPINE (test code=BENZOURN) NEGATIVE URN OPIATES (test code=OPIATURN) NEGATIVE URN PHENCYCLIDINE (PCP) (test code=PHENCURN) NEGATIVE Urine Source? Clean CatchCBC W/AUTO [id number] 15:14:00* Test Item Value Reference Range Comments WHITE BLOOD CELL (test code=WBC) 8.5 K/mm3 4.5-12.5 RED BLOOD CELL (test code=RBC) 4.32 mill/mm3 3.7-5.2 HEMOGLOBIN (test code=HGB) 13.6 gram/dL 11.5-15.5 HEMATOCRIT (test code=HCT) 40.7 % 36.0-46.0 MEAN CELL VOLUME (test code=MCV) 94.2 fL 80-98 MEAN CELL HGB (test code=MCH) 31.5 picogram 27.0-33.0 MEAN CELL HGB CONCETRATION (test code=MCHC) 33.4 gram/dL 33.0-36.0 RED CELL DISTRIBUTION WIDTH (test code=RDW) 12.4 % 11.6-16.2 RED CELL DISTRIBUTION WIDTH SD (test code=RDW-SD) 43.0 fL 37.0-51.0 PLATELET COUNT (test code=PLT) 345 K/mm3 150-450 MEAN PLATELET VOLUME (test code=MPV) 10.4 fL 6.7-11.0 NEUTROPHIL % (test code=NT%) 37.7 % 39.0-69.0 LYMPHOCYTE % (test code=LY%) 46.4 % 25.0-55.0 MONOCYTE % (test code=MO%) 10.7 % 0.0-10.0 EOSINOPHIL % (test code=EO%) 4.7 % 0.0-5.0 BASOPHIL % (test code=BA%) 0.4 % 0.0-1.0 NEUTROPHIL # (test code=NT#) 3.19 K/mm3 1.8-7.7 LYMPHOCYTE # (test code=LY#) 3.93 K/mm3 1.0-5.0 MONOCYTE # (test code=MO#) 0.91 K/mm3 0-0.8 EOSINOPHIL # (test code=EO#) 0.40 K/mm3 0.0-0.5 BASOPHIL # (test code=BA#) 0.03 K/mm3 0.0-0.2 MANUAL DIFF REQUIRED (test code=MDIFF) NO
[2019-04-22 16:31] LABS: BILIRUBIN,URINE NEGATIVE (NEGATIVE); CLARITY,URINE SL CLOUDY (CLEAR); COLOR,URINE YELLOW (YELLOW); KETONES,URINE NEGATIVE (NEGATIVE); LEUKOCYTE ESTERASE ,URINE MODERATE (NEGATIVE); NITRITE,URINE POSITIVE (NEGATIVE); PROTEIN,URINE DIPSTICK NEGATIVE (NEGATIVE); URINE UROBILINOGEN 0.2 mg/dL (0.2 - 1)
[2019-04-22] MEDS ORDERED: KETOROLAC TROMETHAMINE 30 MG/ML VIAL IV ONE (16:31)
[2019-04-22 16:37] LABS: BACTERIA,URINE MANY /HPF; EPITHELIAL CELLS,URINE FEW /LPF; MUCUS,URINE FEW (RARE); WBC,URINE (MAN) 21-50 /HPF (0-5)
[2019-04-22 16:44] LABS: BASOPHILS % 0.5 % (0.0-1.0); EOSINOPHILS # (AUTO) 0.6 (0.0-0.4); EOSINOPHILS % 6.8 % (0.0-6.0); HEMATOCRIT 35.2 % (34.2-44.1); LYMPHOCYTES # (AUTO) 4.4 (1.0-3.2); LYMPHOCYTES % 50.7 % (18.0-39.1); MEAN CORPUSCULAR HEMOGLOBIN 31.7 pg (28-32); MEAN CORPUSCULAR HGB CONC 34.1 g/dL (31-35); MEAN CORPUSCULAR VOLUME 93.1 fL (81-99); MONOCYTES # (AUTO) 0.9 (0.2-0.8); MONOCYTES % 10.2 % (4.4-11.3); NEUTROPHILS # (AUTO) 2.8 (2.1-6.9); NEUTROPHILS % 31.6 % (38.7-80.0); PLATELET COUNT 300 x10e3/uL (140-360); RED BLOOD COUNT 3.78 x10e6/uL (3.6-5.1); RED CELL DISTRIBUTION WIDTH 12.2 % (11.7-14.4)
[2019-04-22] MEDS ORDERED: SODIUM CHLORIDE 0.9% 1000ML 1,000 ML IV ONE (16:45)
[2019-04-22 17:01] LABS: ALBUMIN 3.4 g/dL (3.5-5.0); ANION GAP 11.4 mmol/L (8-16); CREATININE, SERUM 0.98 mg/dL (0.57-1.11); POTASSIUM 3.4 mmol/L (3.5-5.1)
[2019-04-22] MEDS ORDERED: CEFTRIAXONE SOD 1 GM/NS 50 ML 50 ML IV ONE (17:15)
--- NOTE | 2019-04-22 19:00 | NUR ---
REPORT RECEIVED FROM TONY SHEPPARD
--- NOTE | 2019-04-22 20:10 | Diagnostic Imaging Report ---
EXAM: ABDOMEN-1VIEW (KUB), DATE: 04/22/2019 5:21 PM INDICATION: Kidney stone. COMPARISON: CT abdomen pelvis dated 04/19/2019. FINDINGS: LINES/TUBES: None BOWEL PATTERN: No evidence for obstruction. SOFT TISSUES: 1.2 cm calcific density projected on the expected location of the distal right ureter again observed, unchanged in position. LUNG BASES: No acute abnormality. BONES: No acute findings. IMPRESSION: 1.2 cm distal right ureteral calculus again observed. Signed by: Dr. Artur Oliver M.D. on 04/22/2019 8:06 PM
[2019-04-22] MEDS ORDERED: MORPHINE SULFATE 2 MG/ML SYR 1ML IV PRN (20:15)
--- OUTSIDE RECORDS SUMMARY | 2019-04-22 20:28 | XMS REPORT | Clinical Summary ---
Author Author [facility] Address Unknown Phone Unavailable Care Team Providers Care Family Coach Name Role Phone Asked, No Pcp PCP [...] 04/25/2019 Appointment Procedural Cardiology Gina Roldan FNP [id number] [address] 04/25/2019 Office Visit Cardiovascular Health [...] more information, joe stahl contact: Holden Harvey [address] [place] [address]
--- OUTSIDE RECORDS SUMMARY | 2019-04-22 20:29 | XMS REPORT | Continuity of Care Document ---
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 [facility] ARM NUMBNESS/SOB Active 01/04/2018 [facility] HYPERKALEMIA Active 12/10/2016 [facility] 278.0 - OBESITY Active 02/24/2012 [facility] [place] Radiculopathy, site unspecified 01/15/2018 [facility] Urinary tract infection, site not specified 01/15/2018 [facility] Essential (primary) hypertension 01/15/2018 [facility] Hypertensive disorder, systemic arterial (disorder) Resolved Problem 01/15/2018 [facility] Renal failure syndrome (disorder) Resolved Problem 01/15/2018 [facility] Stenosis of larynx (disorder) Resolved Problem 01/15/2018 [facility] Vasculitis (disorder) Resolved Problem 01/15/2018 [facility] HYPERKALEMIA Active [facility] Medications Medication Details Route Status Patient Instructions Ordering Provider Order Date Source tramadol hydrochloride 50 MG Oral Tablet [Ultram] 50 mg=1 tab, PO, Q6H, PRN pain, X 3 day, # 12 tab, 0 Refill(s) No Longer Active 01/05/2018 [facility] Cephalexin 500 MG Oral Capsule [Keflex] 500 mg=1 cap, PO, TID, X 10 day, # 30 cap, 0 Refill(s) Active 01/05/2018 [facility] Saline Flush 0.9% 10 mL, Route: IVP, Drug Form: INJ, Dosing Weight 57.7, kg, PRN, PRN Line Flush, Start date: 01/04/18 22:28:00 CDT, Duration: 30 day, Stop date: 02/03/18 22:27:00 CDTNotes: (Same as: BD Posiflush) No Longer Active 01/05/2018 [facility] Tylenol 650 mg, 2 tab, Route: PO, Drug form: TAB, Q6H, Dosing Weight 57.7, kg, PRN Pain Score 1-3, Start date: 12/11/16 9:38:00 CDT, Duration: 30 day, Stop date: 01/10/17 9:37:00 CDTNotes: Do not exceed 4 gm/day. (Same as: Tylenol) Inactive 12/11/2016 [facility] Saline Flush 0.9% 10 ml, Route: IVP, Drug Form: INJ, Dosing Weight 72.727, kg, Q12H, Start date: 12/11/16 9:00:00 CDT, Duration: 30 day, Stop date: 01/09/17 21:00:00 CDTNotes: (Same as: BD Posiflush) Inactive 12/11/2016 [facility] 24 HR Nifedipine 90 MG Extended Release Tablet 90 mg, 1 tab, Route: PO, Drug form: ERTAB, Daily, Dosing Weight 57.7, kg, Start date: 12/11/16 9:00:00 CDT, Duration: 30 day, Stop date: 01/09/17 9:00:00 CDT Inactive 12/11/2016 [facility] heparin 5,000 unit, 1 mL, Route: SUB-Q, Drug form: INJ, Q12H, Dosing Weight 72.727, kg, Start date: 12/11/16 9:00:00 CDT, Duration: 30 day, Stop date: 01/09/17 21:00:00 CDTNotes: porcine heparin Inactive 12/11/2016 [facility] Protonix 40 mg, 1 tab, Route: PO, Drug form: ECTAB, Before Breakfast, Start date: 12/11/16 9:00:00 CDT, Stop date: 01/09/17 7:30:00 CDTNotes: Tablet should not be chewed or crushed. (Same as: Protonix) Inactive 12/11/2016 [facility] Prednisone 15 mg, 3 tab, Route: PO, Drug form: TAB, Daily, Dosing Weight 57.7, kg, Start date: 12/11/16 9:00:00 CDT, Duration: 30 day, Stop date: 01/09/17 9:00:00 CDTNotes: Take with food. Inactive 12/11/2016 [facility] Fluticasone propionate 0.05 MG/ACTUAT Metered Dose Nasal [place] 1 spray, Route: NASAL, Drug Form: SPRY, Dosing Weight 57.7, kg, BID, Start date: 12/11/16 9:00:00 CDT, Duration: 30 day, Stop date: 01/09/17 17:00:00 CDTNotes: (Same as: Flonase) Inactive 12/11/2016 [facility] Ergocalciferol 70817 UNT Oral Capsule 50,000 IntlUnit, 1 cap, Route: PO, Drug form: CAP, qWeek, Dosing Weight 57.7, kg, Start date: 12/11/16 9:00:00 CDT, Duration: 30 day, Stop date: 01/08/17 9:00:00 CDTNotes: (Same as: Vitamin D) "Do Not Crush" Inactive 12/11/2016 [facility] Dexilant 30 mg, Route: PO, Drug form: DRC, Daily, Dosing Weight 57.7, kg, Start date: 12/11/16 9:00:00 CDT, Duration: 30 day, Stop date: 01/09/17 9:00:00 CDT Inactive 12/11/2016 [facility] Clotrimazole 10 MG/ML Topical Solution 1 appl, Route: TOP, BID, Drug form: CRM, Start date: 12/11/16 9:00:00 CDT, Duration: 30 day, Stop date: 01/09/17 17:00:00 CDTNotes: For external use only. (Same As: Lotrimin AF, Mycelex) Inactive 12/11/2016 [facility] carvedilol 12.5 mg, Route: PO, Drug form: TAB, Q12H, Dosing Weight 57.7, kg, Start date: 12/11/16 9:00:00 CDT, Duration: 30 day, Stop date: 01/09/17 21:00:00 CDT Inactive 12/11/2016 [facility] Renvela 1,600 mg, 2 tab, Route: PO, Drug form: TAB, TID- Meals, Dosing Weight 57.7, kg, Start date: 12/11/16 8:00:00 CDT, Duration: 30 day, Stop date: 01/09/17 17:00:00 CDTNotes: Same as: Renvela Inactive 12/11/2016 [facility] ferrous sulfate 325 mg, 1 tab, Route: PO, Drug form: ECTAB, TID-Meals, Dosing Weight 57.7, kg, Start date: 12/11/16 8:00:00 CDT, Duration: 30 day, Stop date: 01/09/17 17:00:00 CDTNotes: Give with food. "Do Not Crush" Inactive 12/11/2016 [facility] Hydralazine 10 mg, 0.5 mL, Route: IVP, Drug form: INJ, Q4H, Dosing Weight 57.7, kg, Priority: NOW, Start date: 12/11/16 3:29:00 CDT, Duration: 30 day, Stop date: 01/10/17 0:00:00 CDTNotes: (Same as: Apresoline) Push over 5 minutes Inactive 12/11/2016 [facility] 24 HR Nifedipine 90 MG Extended Release Tablet 90 mg, 1 tab, Route: PO, Drug form: ERTAB, Daily, Dosing Weight 57.7, kg, Priority: NOW, Start date: 12/11/16 3:28:00 CDT, Duration: 30 day, Stop date: 01/09/17 9:00:00 CDTNotes: (Same as: Adalat CC,Procardia XL) "Do Not Crush" "Avoid grapefruit and grapefruit juice" Inactive 12/11/2016 [facility] carvedilol 12.5 mg, 1 tab, Route: PO, Drug form: TAB, Q12H, Dosing Weight 57.7, kg, Priority: NOW, Start date: 12/11/16 3:28:00 CDT, Duration: 30 day, Stop date: 01/09/17 21:00:00 CDTNotes: Give with food. (Same As: Coreg) Inactive 12/11/2016 [facility] Albuterol 0.833 MG/ML / Ipratropium [place] 0.167 MG/ML Inhalant Solution 3 mL, Route: INHALATION, Drug Form: SOLN, Dosing Weight 57.7, kg, Q6H, PRN Wheezing, Start date: 12/11/16 3:25:00 CDT, Duration: 30 day, Stop date: 01/10/17 3:24:00 CDTNotes: (Same as: Duoneb) Inactive 12/11/2016 [facility] Bisacodyl 10 mg, 1 supp, Route: PA, Drug form: SUPP, Daily, Dosing Weight 57.7, kg, PRN Constipation, Start date: 12/11/16 3:25:00 CDT, Duration: 30 day, Stop date: 01/10/17 3:24:00 CDTNotes: (Same As: Dulcolax, Bisco-Lax) Inactive 12/11/2016 [facility] Sodium Bicarbonate 325 MG Oral Tablet 2 tabs, PO, TID, 0 Refill(s) Active 12/11/2016 [facility] predniSONE 10 mg oral tablet 15 mg=1.5 tab, PO, Daily, x 90 days, 0 Refill(s) Active 12/11/2016 [facility] sevelamer carbonate 800 MG Oral Tablet [Renvela] 1,600 mg=2 tab, PO, TID-Meals, # 180 tab, 0 Refill(s) Active 12/11/2016 [facility] Clotrimazole 10 MG/ML Topical Solution 1 appl, TOP, BID, # 15 mL, 0 Refill(s) Active 12/11/2016 [facility] vancomycin 125 mg oral capsule See Instructions, 1 cap PO Q6H x2d then q12 x7d then daily x7d then every other day x14d, 0 Refill(s) No Longer Active 12/11/2016 [facility] Ciprofloxacin 500 MG Oral Tablet [Cipro] 500 mg=1 tab, PO, Daily, 0 Refill(s) No Longer Active 12/11/2016 [facility] sevelamer carbonate 800 mg oral tablet 1,600 mg=2 tab, PO, TID, with meals, 0 Refill(s) No Longer Active 12/11/2016 [facility] 24 HR Nifedipine 90 MG Extended Release Tablet 90 mg=1 tab, PO, Daily, # 30 tab, 0 Refill(s) Active 12/11/2016 [facility] Bisacodyl 10 mg, PA, Daily, PRN constipation, 0 Refill(s) No Longer Active 12/11/2016 [facility] ferrous sulfate 325 mg oral enteric coated tablet 325 mg=1 tab, PO, TID, Start with 1 tab daily x 3 days, advance as tolerate, use stool softners and laxatives as needed for constipation, # 90 tab, 3 Refill(s) Active 12/11/2016 [facility] Albuterol 0.833 MG/ML / Ipratropium [place] 0.167 MG/ML Inhalant Solution 3 mL, INHALATION, Q6H, PRN Wheezing, # 30 ea, 1 Refill(s) No Longer Active 12/11/2016 [facility] Ergocalciferol 85291 UNT Oral Capsule 50,000 IntlUnit=1 cap, PO, qWeek, # 8 cap, 0 Refill(s) Active 12/11/2016 [facility] dexlansoprazole 30 MG Enteric Coated Capsule [Dexilant] 30 mg=1 cap, PO, Daily, # 30 cap, 1 Refill(s) Active 12/11/2016 [facility] Fluticasone propionate 0.05 MG/ACTUAT Metered Dose Nasal [place] 1 spray, NASAL, BID, # 16 gm, 0 Refill(s) Active 12/11/2016 [facility] carvedilol 12.5 mg oral tablet 12.5 mg=1 tab, PO, Q12H, # 60 tab, 0 Refill(s) Active 12/11/2016 [facility] Sodium Chloride 0.154 MEQ/ML Inhalant Solution See Instructions, PRN Congestion, 2 sprays, 0 Refill(s) No Longer Active 12/11/2016 [facility] Insulin, Aspart, Human 4 unit, 0.04 mL, Route: SUB-Q, Drug form: SOLN, Bedtime, Dosing Weight 57.7, kg, PRN Blood Glucose Results, Start date: 12/10/16 23:32:00 CDT, Duration: 30 day, Stop date: 01/09/17 23:31:00 CDTNotes: Roll in palms of hands gently; Do not shake vigorously. (Same as: NovoLOG) "single patient use only" WASTE: F/P - Black; E - LocalCustomer Trash Bin Stable for 28 days at room temperature. Expires in days from Date No Longer Active 12/11/2016 [facility] Dextrose 50% Syringe 12.5 gm, 25 mL, Route: IVP, Drug Form: INJ, Dosing Weight 57.7, kg, PRN, PRN Blood Glucose Results, Start date: 12/10/16 23:32:00 CDT, Duration: 30 day, Stop date: 01/09/17 23:31:00 CDT No Longer Active 12/11/2016 [facility] Glucagon 1 mg, Route: IM, Drug form: PDR/INJ, PRN, Dosing Weight 57.7, kg, PRN Blood Glucose Results, Start date: 12/10/16 23:32:00 CDT, Duration: 30 day, Stop date: 01/09/17 23:31:00 CDT No Longer Active 12/11/2016 [facility] Procrit 7,500 unit, 0.75 mL, Route: SUB-Q, Drug form: INJ, After Dialysis, Dosing Weight 72.727, kg, PRN Dialysis, Start date: 12/10/16 23:18:00 CDT, Duration: 30 day, Stop date: 01/09/17 23:17:00 CDTNotes: (Same as: Procrit) epoetin jay 72999 unit/1 ml VL. For dialysis use only. (Procrit) WASTE: F/P - Red; E -Red MEDICATION WASTE Product Size: 32711 unit Product Wasted: ___ unit No Longer Active 12/11/2016 [facility] Saline Flush 0.9% 10 ml, Route: IVP, Drug Form: INJ, Dosing Weight 72.727, kg, PRN, PRN Line Flush, Start date: 12/10/16 23:11:00 CDT, Duration: 30 day, Stop date: 01/09/17 23:10:00 CDTNotes: (Same as: BD Posiflush) No Longer Active 12/11/2016 [facility] Nystatin 100 UNT/MG Topical Powder 1 appl, Route: TOP, PRN, Drug form: PWDR, PRN For Fungal Prophylaxis, Start date: 12/10/16 23:11:00 CDT, Duration: 30 day, Stop date: 01/09/17 23:10:00 CDTNotes: (Same as:Mycostatin, Nilstat) For external use only. No Longer Active 12/11/2016 [facility] Allergies, Adverse Reactions, Alerts No Known [...] Moderate *ABN* (01/05/18 12:25 AM) Negative 01/05/2018 [facility] URINE AND STOOL UA Bili Negative *NA* (01/05/18 12:25 AM) Negative 01/05/2018 [facility] URINE AND STOOL UA Nitrite Positive *ABN* (01/05/18 12:25 AM) Negative 01/05/2018 [facility] URINE AND STOOL UA Protein Negative mg/dL Negative mg/dL 01/05/2018 [facility] URINE AND STOOL UA pH 5.0 5.0 - 8.0 01/05/2018 [facility] URINE AND STOOL UA Ketones Negative mg/dL Negative mg/dL 01/05/2018 [facility] URINE AND STOOL UA Glucose Negative mg/dL Negative mg/dL 01/05/2018 [facility] URINE AND STOOL UA Color Yellow *NA* (01/05/18 12:25 AM) Yellow 01/05/2018 [facility] URINE AND STOOL UA Spec Grav 1.020 <=1.030 01/05/2018 [facility] URINE AND STOOL UA Turbidity Marked *ABN* (01/05/18 12:25 AM) Clear 01/05/2018 [facility] CARDIAC ENZYMES CK MB <1.0 0.5 - 3.6 01/05/2018 [facility] CARDIAC ENZYMES Troponin-I <0.02 0.00 - 0.40 01/05/2018 [facility] CARDIAC ENZYMES Total CK 105 12 - 191 01/05/2018 [facility] CARDIAC ENZYMES CK MB Index <1.0 0.0 - 2.5 01/05/2018 [facility] CHEM PANEL eGFR 75 01/05/2018 Result Comment: [...] should be multiplied by the estimated BMI. [facility] CHEM PANEL Albumin Lvl 3.5 3.5 - 5.0 01/05/2018 [facility] CHEM PANEL Calcium Lvl 8.8 8.5 - 10.5 01/05/2018 [facility] CHEM PANEL Chloride Lvl 106 95 - 109 01/05/2018 [facility] CHEM PANEL CO2 27 24 - 32 01/05/2018 [facility] CHEM PANEL Sodium Lvl 138 135 - 145 01/05/2018 [facility] CHEM PANEL Potassium Lvl 3.6 3.5 - 5.1 01/05/2018 [facility] CHEM PANEL BUN 17 7 - 22 01/05/2018 [facility] CHEM PANEL Creatinine Lvl 0.90 0.50 - 1.40 01/05/2018 [facility] CHEM PANEL B/C Ratio 19 6 - 25 01/05/2018 [facility] CHEM PANEL Bili Total 0.4 0.2 - 1.3 01/05/2018 [facility] CHEM PANEL Globulin 4.4 2.7 - 4.2 01/05/2018 [facility] CHEM PANEL AGAP 8.6 10.0 - 20.0 01/05/2018 [facility] CHEM PANEL A/G Ratio 0.8 0.7 - 1.6 01/05/2018 [facility] CHEM PANEL Glucose Lvl 77 70 - 99 01/05/2018 [facility] CHEM PANEL Total Protein 7.9 6.4 - 8.4 01/05/2018 [facility] CHEM PANEL AST 35 0 - 37 01/05/2018 [facility] CHEM PANEL Alk Phos 51 39 - 136 01/05/2018 [facility] CHEM PANEL ALT 52 0 - 65 01/05/2018 [facility] PTT 30.0 22.9 - 35.8 01/05/2018 [facility] PT 12.5 12.0 - 14.7 01/05/2018 [facility] INR 0.93 0.85 - 1.17 01/05/2018 [facility] MCHC 34.4 32.0 - 36.0 01/05/2018 [facility] MPV 9.1 7.4 - 10.4 01/05/2018 [facility] MCH 31.8 27.0 - 31.0 01/05/2018 [facility] Platelet 306 133 - 450 01/05/2018 [facility] RDW 13.9 11.5 - 14.5 01/05/2018 [facility] MCV 92.3 80.0 - 98.0 01/05/2018 [facility] Hct 39.1 36.0 - 48.0 01/05/2018 [facility] WBC 10.1 3.7 - 10.4 01/05/2018 [facility] Hgb 13.4 12.0 - 16.0 01/05/2018 [facility] RBC 4.23 4.20 - 5.40 01/05/2018 [facility] Segs-Bands # 3.3 1.5 - 8.1 01/05/2018 [facility] Monocytes 12.0 2.0 - 12.0 01/05/2018 [facility] Segs 32.3 45.0 - 75.0 01/05/2018 [facility] Lymphocytes 50.4 20.0 - 40.0 01/05/2018 [facility] Monocytes # 1.2 0.0 - 0.8 01/05/2018 [facility] HEMATOLOGY Eosinophils 4.9 0.0 - 4.0 01/05/2018 [facility] HEMATOLOGY Eosinophils # 0.5 0.0 - 0.5 01/05/2018 [facility] HEMATOLOGY Basophils 0.4 0.0 - 1.0 01/05/2018 [facility] Lymphocytes # 5.1 1.0 - 5.5 01/05/2018 [facility] CHEM PANEL eGFR 10 12/11/2016 Result Comment: [...] should be multiplied by the estimated BMI. [facility] CHEM PANEL Chloride Lvl 100 95 - 109 12/11/2016 [facility] CHEM PANEL Sodium Lvl 138 135 - 145 12/11/2016 [facility] CHEM PANEL Potassium Lvl 3.6 3.5 - 5.1 12/11/2016 [facility] CHEM PANEL BUN 33 7 - 22 12/11/2016 [facility] CHEM PANEL Creatinine Lvl 4.83 0.50 - 1.40 12/11/2016 [facility] CHEM PANEL Calcium Lvl 8.0 8.5 - 10.5 12/11/2016 [facility] CHEM PANEL CO2 27 24 - 32 12/11/2016 [facility] CHEM PANEL AGAP 14.6 10.0 - 20.0 12/11/2016 [facility] CHEM PANEL Glucose Lvl 71 70 - 99 12/11/2016 [facility] HEMATOLOGY Basophils 0.6 0.0 - 1.0 12/11/2016 [facility] HEMATOLOGY Eosinophils 1.7 0.0 - 4.0 12/11/2016 [facility] HEMATOLOGY Monocytes 7.5 2.0 - 12.0 12/11/2016 [facility] HEMATOLOGY Lymphocytes 7.5 20.0 - 40.0 12/11/2016 [facility] HEMATOLOGY Eosinophils # 0.1 0.0 - 0.5 12/11/2016 [facility] HEMATOLOGY Monocytes # 0.5 0.0 - 0.8 12/11/2016 [facility] HEMATOLOGY Lymphocytes # 0.5 1.0 - 5.5 12/11/2016 [facility] HEMATOLOGY Segs 82.7 45.0 - 75.0 12/11/2016 [facility] HEMATOLOGY Segs-Bands # 5.8 1.5 - 8.1 12/11/2016 [facility] Hgb 9.2 12.0 - 16.0 12/11/2016 [facility] HEMATOLOGY MCV 85.5 80.0 - 98.0 12/11/2016 [facility] MCH 28.9 27.0 - 31.0 12/11/2016 [facility] MCHC 33.8 32.0 - 36.0 12/11/2016 [facility] HEMATOLOGY Hct 27.4 36.0 - 48.0 12/11/2016 [facility] MPV 7.1 7.4 - 10.4 12/11/2016 [facility] Platelet 203 133 - 450 12/11/2016 [facility] RDW 14.5 11.5 - 14.5 12/11/2016 [facility] RBC 3.20 4.20 - 5.40 12/11/2016 [facility] WBC 7.0 3.7 - 10.4 12/11/2016 [facility] CHEM PANEL eGFR 3 12/11/2016 Result [...] should be multiplied by the estimated BMI. [facility] CHEM PANEL CO2 21 24 - 32 12/11/2016 [facility] CHEM PANEL Chloride Lvl 99 95 - 109 12/11/2016 [facility] CHEM PANEL AGAP 25.7 10.0 - 20.0 12/11/2016 [facility] CHEM PANEL Calcium Lvl 7.7 8.5 - 10.5 12/11/2016 [facility] CHEM PANEL Sodium Lvl 139 135 - 145 12/11/2016 [facility] CHEM PANEL Potassium Lvl 6.7 3.5 - 5.1 12/11/2016 Result Comment: Critical Result(s) called to Debra Lindquist RN at 12/11/2016 00:09 by RA. Read back OK. [facility] CHEM PANEL Glucose Lvl 84 70 - 99 12/11/2016 [facility] CHEM PANEL BUN 114 7 - 22 12/11/2016 [facility] CHEM PANEL Creatinine Lvl 12.40 0.50 - 1.40 12/11/2016 [facility] HEMATOLOGY Platelet 223 133 - 450 12/11/2016 [facility] MPV 7.4 7.4 - 10.4 12/11/2016 [facility] RDW 14.6 11.5 - 14.5 12/11/2016 [facility] MCHC 33.4 32.0 - 36.0 12/11/2016 [facility] MCH 28.9 27.0 - 31.0 12/11/2016 [facility] HEMATOLOGY MCV 86.4 80.0 - 98.0 12/11/2016 [facility] Hct 27.2 36.0 - 48.0 12/11/2016 [facility] HEMATOLOGY WBC 8.6 3.7 - 10.4 12/11/2016 [facility] Hgb 9.1 12.0 - 16.0 12/11/2016 [facility] RBC 3.15 4.20 - 5.40 12/11/2016 [facility] HEMATOLOGY Basophils 0.4 0.0 - 1.0 12/11/2016 [facility] HEMATOLOGY Segs-Bands # 7.6 1.5 - 8.1 12/11/2016 [facility] HEMATOLOGY Monocytes 5.9 2.0 - 12.0 12/11/2016 [facility] HEMATOLOGY Lymphocytes 4.2 20.0 - 40.0 12/11/2016 [facility] HEMATOLOGY Segs 89.1 45.0 - 75.0 12/11/2016 [facility] HEMATOLOGY Eosinophils 0.4 0.0 - 4.0 12/11/2016 [facility] Lymphocytes # 0.4 1.0 - 5.5 12/11/2016 [facility] Monocytes # 0.5 0.0 - 0.8 12/11/2016 [facility] Anisocyte 1+ *ABN* (12/10/16 11:20 PM) None Seen 12/11/2016 [facility] HEMATOLOGY Plt Morph Normal (12/10/16 11:20 PM) 12/11/2016 [facility] IMMUNOLOGY Hep Bs Ab <3.1 <=7.4 mIU/mL 12/11/2016 [facility] IMMUNOLOGY Hep Bs Ag Negative *NA* (12/10/16 11:20 PM) Negative 12/11/2016 [facility] SPECIAL CHEMISTRY Hgb A1C 4.8 <=5.6 % 12/11/2016 [facility] Pathology Reports No Data Provided for [...] right lower extremity DVT SL: [id number] 01/04/2018 [facility] Spine cervical wo contrast CT CT cervical [...] of the cervical spine. SL: [id number] 01/04/2018 [facility] 1view DX Clinical Indication: - right hand numbness; Comparison: 12/10/2016 FINDINGS: AP chest radiographs shows normal lung volumes without interstitial or airspace opacities, pleural effusions or pneumothorax. The heart size and pulmonary vasculature are normal. The trachea is midline. There are no clinically significant osseous abnormalities noted. IMPRESSION: No chest radiographic evidence of acute cardiopulmonary disease. SL: [id number] 01/04/2018 [facility] 1view DX Clinical Indication: Shortness of Breath [...] present in satisfactory locations. SL: 82 12/10/2016 [facility] Consultation Notes No Data Provided for This Section Discharge Summaries No Data Provided for This Section History and Physicals No Data Provided for This Section Vital Signs Vital Sign Value Date Comments Source Systolic (mm Hg) 118 01/05/2018 [facility] Diastolic (mm Hg) 76 01/05/2018 [facility] Respitory Rate 16 01/05/2018 [facility] Temperature Oral (F) 98 F 01/05/2018 [facility] Heart Rate 86 01/05/2018 [facility] Heart Rate 83 01/04/2018 [facility] Respitory Rate 18 01/04/2018 [facility] Systolic (mm Hg) 127 01/04/2018 [facility] Diastolic (mm Hg) 87 01/04/2018 [facility] Temperature Oral (F) 98.7 F 01/04/2018 [facility] Systolic (mm Hg) 129 12/11/2016 [facility] Diastolic (mm Hg) 79 12/11/2016 [facility] Respitory Rate 20 12/11/2016 [facility] Systolic (mm Hg) 144 12/11/2016 [facility] Diastolic (mm Hg) 83 12/11/2016 [facility] Respitory Rate 25 12/11/2016 [facility] Systolic (mm Hg) 135 12/11/2016 [facility] Diastolic (mm Hg) 76 12/11/2016 [facility] Respitory Rate 20 12/11/2016 [facility] BMI Calculated 25.69 12/11/2016 [facility] Height 149.86 cm 12/11/2016 [facility] Weight 57.7 12/11/2016 [facility] Height 149.86 cm 12/11/2016 [facility] Weight 57.007 12/11/2016 [facility] [facility] BMI Calculated 25.38 12/11/2016 [facility] Encounters Location Location Details Encounter Type Encounter Number Reason For Visit Attending Provider ADM Date DC Date Status Source OD [id number] 278.0 - OBESITY JUDY PONCE 02/24/2012 [facility] [id number] Osmund Agbo 12/11/2016 12/11/2016 [facility] Emergency [id number] Tim Pham 01/04/2018 01/05/2018 [facility] Procedures Procedure Code Date Perfomer Comments Source Hysterectomy [id number] 12/08/2014 [facility] section [id number] [facility] Tracheostomy [id number] [facility] Assessment and Plan Assessment and Plan Date [...] Hemodialysis CONSULTANTS: Attending: Eusebio Valiente MD.....Office: .....MSO: [id number] Status: Inpatient Code Status: None Specified=FULL CODE [...] Working DRG: MISC DISORDERS OF NUTRITION,METABOLISM,FLUIDS/ELECTROLYTES W/O ASSISTED Diet: Diet Renal 80,2,2,1(pro,sod,pot,phos) PCP: PCP, Maria Isabel BOURGEOIS.....Office: (not on file).....MSO: [id number] Consulting Physicians: Chandler Wooten MD Office: MSO: [...] MD Date: 12/10/16 Impression and Plan 12/11/2016 [facility] Plan of Care No Data Provided for This Section Social History Social History Date Source Social History TypeResponse Smoking Status Never smoker; Type: Cigarettes; Previous treatment: None; Ready to change: No; Concerns about tobacco use in household: No; Exposure to Tobacco Smoke None; Cigarette Smoking Last 365 Days No; Reg Smoking Cessation Counseling No entered on: 01/04/18 01/05/2018 [facility] Social History TypeResponse Smoking Status Never smoker; Exposure to Tobacco Smoke None; Cigarette Smoking Last 365 Days No; Reg Smoking Cessation Counseling No 12/11/2016 [facility] Family History No Data Provided for This Section Advance Directives No Data Provided for This Section Functional Status No Data Provided for This Section
--- NOTE | 2019-04-22 21:20 | NUR ---
PT ARRIVED BY WHEELCHAIR TO ROOM 101, PT REQUESTED ROOM CHANGE, PT TRANSFERRED TO ROOM 115. PT IS AAOX3, RR EVEN AND NON-LABORED, ON ROOM AIR. PT REPORTS ABDOMINAL PAIN ON THE RIGHT SIDE FROM THE KIDNEY STONE. PT ASSISTED TO AMBULATE TO HOSPITAL BED, STEADY GAIT NOTED. ORIENTED PT TO HOSPITAL ROOM, BED CONTROLS AND CALL SEQUEIRA. PROVIDE PT WITH 2 ADDITIONAL PILLOWS AND X1 BLANKET. LEFT PT LAYING SEMI FOWLERS IN BED, BED IN LOW LOCKED POSITION, SIDE RAILS UPX2, CALL LIGHT AND PHONE WITHIN REACH.
[2019-04-22 21:35] VITALS: BP 143/70
[2019-04-22] MEDS: SODIUM CHLORIDE 0.9% 1000ML 1,000 ML IV SCH (21:45)
[2019-04-22] MEDS: MORPHINE SULFATE INJ 4 MG/ML INJ 1ML IV PRN (21:45)
[2019-04-22] MEDS: ONDANSETRON HCL INJ 2MG/ML 2ML 2 MG/ML VIAL IV PRN (21:45)
[2019-04-22 22:00] VITALS: BP 143/70
--- NOTE | 2019-04-22 22:30 | NUR ---
PROVIDED PT WITH LIP MOISTURIZER.
[2019-04-22] MEDS ORDERED: OMEPRAZOLE10 MG PO (22:43)
[2019-04-22] MEDS ORDERED: B COMPLEX1 EACH PO (22:43)
[2019-04-22] MEDS ORDERED: PENTOXIFYLLINE400 MG PO (22:43)
[2019-04-22] MEDS ORDERED: LEVOTHYROXINE100 MC1 IV (22:43)
[2019-04-22] MEDS ORDERED: D3 DOTS2000 UNIT PO (22:43)
[2019-04-23] VITALS: BP 104/60
--- NOTE | 2019-04-23 00:15 | Consultation ---
DATE OF CONSULTATION: 04/22/2019 Urology Consultation Consultation is called by Dr. Jerrell Howe and Dr. Mccullough. CHIEF COMPLAINT AND REASON FOR CONSULTATION: Right distal ureteral calculus, 9 mm. HISTORY OF PRESENT ILLNESS: Ms. Dacosta is a very pleasant 49-year-old female with history of bilateral abdominal pain, remote dysuria. Denied hematuria. Denied fevers. No chills. Positive nausea. Denied vomiting. She was diagnosed with a 9 mm kidney stone. Urologic consultation was requested. PAST MEDICAL HISTORY: As above with hypertension. MEDICATIONS: Please see MAR. ALLERGIES: NKDA. SOCIAL HISTORY: Denied smoking or drinking. FAMILY HISTORY: Denied urologic stones or malignancies. REVIEW OF SYSTEMS: Noncontributory, other than problems mentioned above for 12 organ systems. PHYSICAL EXAMINATION: GENERAL: Middle-aged female, in no distress currently. VITAL SIGNS: Her temperature is 97.8, pulse 65, respirations 16, blood pressure is 131/78. HEENT: Sclerae anicteric. NECK: Supple. BACK: Without costovertebral angle tenderness bilaterally. ABDOMEN: Soft, it is nontender, it is nondistended. No palpable mass. No palpable hernias. No palpable adenopathy. : Normal female external genitalia. EXTREMITIES: No edema. Moves all four extremities. PSYCH: Alert and mood appropriate. SKIN: Intact. Normal color. PERTINENT LABORATORY DATA: CT scan revealing a 9 mm right distal ureteral calculus with severe right hydronephrosis. No left stones. The left hydro. Hemoglobin 12, hematocrit 35, platelet count 300,000 white cell count 8730. Sodium 137, potassium 3.4, chloride 102, bicarb 23, BUN 8, creatinine 0.9, and glucose 92. Urinalysis 6-10 reds, 21-50 whites. IMPRESSION: 1. Right 9 mm ureteral calculus. 2. Right-sided hydronephrosis. 3. Urinary tract infection, present on admission. 4. Microscopic hematuria. 5. Hypertension. 6. Renal colic. 7. Hypokalemia. 8. Anemia. PLAN: For the patient's infection, she cannot be ureteroscoped or place a stent that has already been scheduled, exposing the discussion with the patient regarding the fact the stent is temporary indwelling device and must be removed, failure to do so could lead to encrustation, infection, inflammation, atrophy, loss of kidney, and even . We will also begin broad-spectrum antibiotics. Thank you for allowing me to participate in the care of your patient. We will be happy to follow along with you. MD JORGE Mcelroy/WAN /[id number]
[2019-04-23 04:00] VITALS: BP 104/59
[2019-04-23] MEDS: SODIUM CHLORIDE 0.9% 1000ML 1,000 ML IV SCH (05:20)
[2019-04-23 05:22] LABS: BASOPHILS % 0.5 % (0.0-1.0); EOSINOPHILS # (AUTO) 0.5 (0.0-0.4); EOSINOPHILS % 6.5 % (0.0-6.0); HEMOGLOBIN 11.3 g/dL (12.0-16.0); LYMPHOCYTES % 48.3 % (18.0-39.1); MEAN CORPUSCULAR HEMOGLOBIN 31.3 pg (28-32); MEAN CORPUSCULAR HGB CONC 33.2 g/dL (31-35); MEAN CORPUSCULAR VOLUME 94.2 fL (81-99); MONOCYTES # (AUTO) 0.9 (0.2-0.8); MONOCYTES % 11.4 % (4.4-11.3); NEUTROPHILS # (AUTO) 2.7 (2.1-6.9); NEUTROPHILS % 33.1 % (38.7-80.0); PLATELET COUNT 246 x10e3/uL (140-360); RED BLOOD COUNT 3.61 x10e6/uL (3.6-5.1); RED CELL DISTRIBUTION WIDTH 12.1 % (11.7-14.4)
[2019-04-23] MEDS: ONDANSETRON HCL INJ 2MG/ML 2ML 2 MG/ML VIAL IV PRN (05:28)
[2019-04-23] MEDS: MORPHINE SULFATE INJ 4 MG/ML INJ 1ML IV PRN (05:28)
[2019-04-23 05:48] LABS: ALANINE AMINOTRANSFERASE 28 IU/L (0-55); ALBUMIN 2.8 g/dL (3.5-5.0); ALKALINE PHOSPHATASE 40 IU/L (40-150); ANION GAP 9.7 mmol/L (8-16); BLOOD UREA NITROGEN 8 mg/dL (7-26); BUN/CREATININE RATIO 10 (6-25); CALCIUM 7.9 mg/dL (8.4-10.2); CARBON DIOXIDE 23 mmol/L (22-29); CHLORIDE 111 mmol/L (98-107); EST GLOMERULAR FILTRATION RATE > 60 ML/MIN (60-); GLUCOSE 94 mg/dL (74-118); POTASSIUM 3.7 mmol/L (3.5-5.1); SODIUM 140 mmol/L (136-145)
--- NOTE | 2019-04-23 06:38 | NUR ---
PT TRANSPORTED BY HOSPITAL BED TO OR FOR SCHEDULED PROCEDURE.
[2019-04-23] MEDS ORDERED: IOPAMIDOL 610MG/1ML 300 MG/ML VIAL IV ONE (07:18)
--- NOTE | 2019-04-23 08:39 | Diagnostic Imaging Report ---
Retrograde pyelogram COMPARISON: KUB 04/22/[address] abdomen and pelvis 04/19/2019 HISTORY: Right ureteral stone TECHNIQUE: Retrograde pyelogram was performed by urology. Nine abdominal spot radiographs from the procedure were made available for evaluation. RADIATION DOSE: Fluoroscopy Time: 1:29 min Dose (Kerma) Area Product: 1099 cGycm2 Air Kerma (AK) value has been reviewed. It is below the limits set by the Radiation Protocol Committee (RPC) committee. DISCUSSION: Retrograde contrast in the left ureter, which appear normal in caliber and without filling defects. Partially visualized contrast in the distal right ureter. Wire catheter has been traversing the right ureter with tip in the proximal right renal pelvis. Previously noted 1.2 cm distal right ureteral stone is seen on initial retrograde filling of the right ureter. No further images of the pelvis are available for comparison after guidewire placement. IMPRESSION: Limited spot images from a fluoroscopic retrograde pyelogram as detailed above. Signed by: Dr. Deisy Cedeño M.D. on 04/23/2019 8:36 AM
[2019-04-23 08:53] VITALS: BP 115/57
--- NOTE | 2019-04-23 09:10 | NUR ---
PT BACK TO ROOM NO DISTRESS NOTED, DENIES PAIN AT THIS TIME, UPDATED ON POC VOICED UNDERSTANDING, CALL LIGHT IN REACH WILL CONTINUE TO MONITOR
[2019-04-23 10:08] VITALS: BP 115/57
[2019-04-23 12:12] VITALS: BP 85/50
[2019-04-23] MEDS ORDERED: MIDAZOLAM HCL 2 MG/2 ML VIAL ONE (15:16)
[2019-04-23] MEDS ORDERED: FENTANYL CITRATE/PF 100MCG/2 ML INJ ONE (15:16)
[2019-04-23] MEDS ORDERED: CEFTRIAXONE SOD 1 GM VIAL ONE (15:22)
[2019-04-23] MEDS ORDERED: EPHEDRINE SULFATE INJ 50 MG/10 ML SYR ONE (15:22)
[2019-04-23] MEDS ORDERED: SEVOFLURANE INHAL SOLN 250 ML PEN BTL ONE (15:22)
[2019-04-23] MEDS ORDERED: ONDANSETRON HCL INJ 2MG/ML 2ML 2 MG/ML VIAL ONE (15:22)
[2019-04-23] MEDS ORDERED: LIDOCAINE HCL 2% LOCAL INJ 5 ML SDV VIAL INJ ONE (15:22)
[2019-04-23] MEDS ORDERED: KETOROLAC TROMETHAMINE 30 MG/ML VIAL ONE (15:22)
[2019-04-23] MEDS ORDERED: PROPOFOL IV EMULSION 10 MG/ML 20 ML VIAL ONE (15:22)
[2019-04-23] MEDS ORDERED: DEXAMETHASONE SOD PHOS INJ 4 MG/ML VIAL ONE (15:22)
[2019-04-23] MEDS ORDERED: ACETAMINOPHEN 1000 MG/100 ML IV ONE (15:22)
--- NOTE | 2019-04-24 11:18 | Operative Report ---
DATE OF PROCEDURE: 04/23/2019 SURGEON: Chris Olmos MD PREOPERATIVE DIAGNOSES: 1. Microscopic hematuria. 2. Right-sided hydronephrosis. POSTOPERATIVE DIAGNOSES: 1. Microscopic hematuria. 2. Right-sided hydronephrosis. PROCEDURES: 1. Cystourethroscopy with left ureteral catheterization and left retrograde pyelogram (separate procedure for microscope hematuria). 2. Cystourethroscopy with insertion of a right indwelling stent (entirely separate procedure for right hydronephrosis). 3. Supervision of fluoroscopy. 4. Interpretation of retrograde pyelography. ANESTHESIA: General. ESTIMATED BLOOD LOSS: Minimal. COMPLICATIONS: None. INDICATIONS FOR PROCEDURE: Ms. Dacosta is a very pleasant 49-year-old female with a history of right-sided ureteral colic hydronephrosis with signs of infection. She and I had a long discussion about alternatives, risks, and benefits of doing nothing, stent placement, percutaneous nephrostomy. She voiced understanding of the options, alternatives, risks, and benefits. PROCEDURE IN DETAIL: After informed consent was obtained, the patient was taken to operative suite, placed supine on the operating table, underwent general anesthesia by the Anesthesia Service. She was placed in the dorsal lithotomy position, sterilely prepped and draped in standard fashion for cystoscopy. A 22.5-Belarusian scope was inserted per urethra. Normal urethra was noted. Panendoscopy of the bladder revealed no tumors, no stones. Left ureteral orifice was seen to efflux clear urine and the right did not. Bilateral retrograde pyelogram performed; left was normal, the right revealed a very large 9 mm distal ureteral calculus approximately 3 cm from the ureteral orifice with proximal hydronephrosis. With moderately difficulty, guidewire was inserted and a 6 x 24 ureteral stent was deployed with coil in renal pelvis and a coil in the bladder. The patient's bladder was drained. The patient was awakened from anesthesia and transferred to the recovery room in excellent condition. Supervision of fluoroscopy, interpretation of retrograde pyelography: I spent entire procedure and supervised fluoroscopy. There was no radiologist present. Attention was turned to the left and right ureteral orifices, which were catheterized. A retrograde pyelogram performed; on the left side revealing delicate ureter, delicate pelvocaliceal systems; on the right side revealed distal 9 mm ureteral calculus with proximal hydronephrosis. Postoperative views on the right side revealed stent in adequate position. MD JORGE Mcelroy/WAN /[id number] cc: Jerrell Howe MD
[2019-04-24] MEDS ORDERED: POTASSIUM CHLO20 ME1 PO (16:08)
== END 2019-04-23 14:23 | disposition home or self-care (01) ==
LOC: ER 15:24 → ERHOLD 20:26 → MED/SURG 21:20
PROVIDERS: ADMIT Urology; ATTEND Urology
DX: N13.6 Pyonephrosis (principal); E03.9 Hypothyroidism, unspecified; K76.0 Fatty (change of) liver, not elsewhere classified; E66.9 Obesity, unspecified; Z68.41 Body mass index [BMI] 40.0-44.9, adult
CPT/HCPCS: 36415 ×2; 52005; 52332; 74018; 74420; 80053 ×2; 81001; 81025; 85025 ×2; 87086; 87186; 99284; C1758; C2617; G0378 ×2; J0131; J0696 ×2; J1100; J1885 ×2; J2001; J2250; J2270 ×2; J2405 ×2; J2704; J3010; J7030 ×2; Q9967

== ENCOUNTER 2019-04-24 13:08 | Emergency (ER) | payer BC ==
[~2019-04-24] VITALS: Ht 137.2 cm; Wt 82.1 kg
[~2019-04-24 13:08] MED LIST changes: -DIATRIZOATE MEGL/DIATRIZOA SOD 30 ML BTL PO ONE; -IOPAMIDOL 370 MG/ML 200 ML INFUS..BTL INJ ONE; -MACROBID 100 M100 MG PO; -POTASSIUM CHLO20 ME1 PO; -SODIUM CHLORIDE 0.9% 50ML 50 ML ONE
--- OUTSIDE RECORDS SUMMARY | 2019-04-24 13:11 | XMS REPORT | Clinical Summary ---
Author Author [facility] Address Unknown Phone Unavailable Care Team Providers Care Treater Helper Name Role Phone Asked, No Pcp PCP [...] (Primary Dx) 03/28/2019 Office Visit Cardiovascular after 04/23/2018 Social History Date Tobacco Use Types Packs/Day Years Used Never Assessed Sex Assigned at Date Recorded Not on file Industry Job Start Date Occupation Not on file Not on file Not on file Travel End Travel History Travel Start No recent travel history available. Last Filed Vital Signs Reading Time Taken Comments Vital Sign 111/66 03/28/2019 11:16 AM CDT Blood Pressure 80 03/28/2019 11:16 AM CDT Pulse - - Temperature - - Respiratory Rate 95% 03/28/2019 11:16 AM CDT Oxygen Saturation - - Inhaled Oxygen Concentration - - Weight - - Height - - Body Mass Index Plan of Treatment Care Team Description Date Type Specialty 04/25/2019 Appointment Procedural Cardiology Gina Roldan FNP [id number] [address] 04/25/2019 Office Visit Cardiovascular Health Maintenance Due Date Last Done Comments BREAST CANCER SCREENING 01/13/2018 COLONOSCOPY SCREENING 01/13/2018 SHINGLES VACCINES (#1) 01/13/2018 INFLUENZA VACCINE 04/07/2019 Results Not on fileafter 04/23/2018 Insurance Type Payer Benefit Subscriber ID Effective Phone Address Plan / Dates Group PPO BCBS BCBS xxxxxxxxxxxx 2018-P CHOICE resent PPO/ROBERTO ARROYO PPO Advance Directives 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
--- OUTSIDE RECORDS SUMMARY | 2019-04-24 13:11 | XMS REPORT | Continuity of Care Document ---
Author Author [employer] Address Unknown Phone Unavailable Care Team Providers Care Marketing Copywriter Name Role Phone [employer] Unavailable Unavailable Problems Problem Status Onset Date Classification Date Reported Comments Source Escherichia coli (organism) Active 01/05/2018 Problem 01/15/2018 urine (ESBL+), 01/05/2018 Problem added by Discern Expert. [facility] ARM NUMBNESS/SOB Active 01/04/2018 [facility] HYPERKALEMIA Active 12/10/2016 [facility] 278.0 - OBESITY Active 02/24/2012 OPI Almo Radiculopathy, site unspecified 01/15/2018 [facility] Urinary tract infection, site not specified 01/15/2018 [facility] Essential (primary) hypertension 01/15/2018 [facility] Hypertensive disorder, systemic arterial (disorder) Resolved Problem 01/15/2018 [facility] Renal failure syndrome (disorder) Resolved Problem 01/15/2018 [facility] Stenosis of larynx (disorder) Resolved Problem 01/15/2018 [facility] Vasculitis (disorder) Resolved Problem 01/15/2018 [facility] HYPERKALEMIA Active [facility] Medications Medication Details Route Status Patient Instructions Ordering Provider Order Date Source tramadol hydrochloride 50 MG Oral Tablet [Ultram] 50 mg=1 tab, PO, Q6H, PRN pain, X 3 day, # 12 tab, 0 Refill(s) No Longer Active 01/05/2018 [facility] Cephalexin 500 MG Oral Capsule [Keflex] 500 mg=1 cap, PO, TID, X 10 day, # 30 cap, 0 Refill(s) Active 01/05/2018 [facility] Saline Flush 0.9% 10 mL, Route: IVP, Drug Form: INJ, Dosing Weight 57.7, kg, PRN, PRN Line Flush, Start date: 01/04/18 22:28:00 CDT, Duration: 30 day, Stop date: 02/03/18 22:27:00 CDTNotes: (Same as: BD Posiflush) No Longer Active 01/05/2018 [facility] Tylenol 650 mg, 2 tab, Route: PO, Drug form: TAB, Q6H, Dosing Weight 57.7, kg, PRN Pain Score 1-3, Start date: 12/11/16 9:38:00 CDT, Duration: 30 day, Stop date: 01/10/17 9:37:00 CDTNotes: Do not exceed 4 gm/day. (Same as: Tylenol) Inactive 12/11/2016 [facility] Saline Flush 0.9% 10 ml, Route: IVP, Drug Form: INJ, Dosing Weight 72.727, kg, Q12H, Start date: 12/11/16 9:00:00 CDT, Duration: 30 day, Stop date: 01/09/17 21:00:00 CDTNotes: (Same as: BD Posiflush) Inactive 12/11/2016 [facility] 24 HR Nifedipine 90 MG Extended Release Tablet 90 mg, 1 tab, Route: PO, Drug form: ERTAB, Daily, Dosing Weight 57.7, kg, Start date: 12/11/16 9:00:00 CDT, Duration: 30 day, Stop date: 01/09/17 9:00:00 CDT Inactive 12/11/2016 [facility] heparin 5,000 unit, 1 mL, Route: SUB-Q, Drug form: INJ, Q12H, Dosing Weight 72.727, kg, Start date: 12/11/16 9:00:00 CDT, Duration: 30 day, Stop date: 01/09/17 21:00:00 CDTNotes: porcine heparin Inactive 12/11/2016 [facility] Protonix 40 mg, 1 tab, Route: PO, Drug form: ECTAB, Before Breakfast, Start date: 12/11/16 9:00:00 CDT, Stop date: 01/09/17 7:30:00 CDTNotes: Tablet should not be chewed or crushed. (Same as: Protonix) Inactive 12/11/2016 [facility] Prednisone 15 mg, 3 tab, Route: PO, Drug form: TAB, Daily, Dosing Weight 57.7, kg, Start date: 12/11/16 9:00:00 CDT, Duration: 30 day, Stop date: 01/09/17 9:00:00 CDTNotes: Take with food. Inactive 12/11/2016 [facility] Fluticasone propionate 0.05 MG/ACTUAT Metered Dose Nasal Plummer 1 spray, Route: NASAL, Drug Form: SPRY, Dosing Weight 57.7, kg, BID, Start date: 12/11/16 9:00:00 CDT, Duration: 30 day, Stop date: 01/09/17 17:00:00 CDTNotes: (Same as: Flonase) Inactive 12/11/2016 [facility] Ergocalciferol 04511 UNT Oral Capsule 50,000 IntlUnit, 1 cap, Route: PO, Drug form: CAP, qWeek, Dosing Weight 57.7, kg, Start date: 12/11/16 9:00:00 CDT, Duration: 30 day, Stop date: 01/08/17 9:00:00 CDTNotes: (Same as: Vitamin D) "Do Not Crush" Inactive 12/11/2016 [facility] Dexilant 30 mg, Route: PO, Drug form: DRC, Daily, Dosing Weight 57.7, kg, Start date: 12/11/16 9:00:00 CDT, Duration: 30 day, Stop date: 01/09/17 9:00:00 CDT Inactive 12/11/2016 [facility] Clotrimazole 10 MG/ML Topical Solution 1 appl, Route: TOP, BID, Drug form: CRM, Start date: 12/11/16 9:00:00 CDT, Duration: 30 day, Stop date: 01/09/17 17:00:00 CDTNotes: For external use only. (Same As: Lotrimin AF, Mycelex) Inactive 12/11/2016 [facility] carvedilol 12.5 mg, Route: PO, Drug form: TAB, Q12H, Dosing Weight 57.7, kg, Start date: 12/11/16 9:00:00 CDT, Duration: 30 day, Stop date: 01/09/17 21:00:00 CDT Inactive 12/11/2016 [facility] Renvela 1,600 mg, 2 tab, Route: PO, Drug form: TAB, TID- Meals, Dosing Weight 57.7, kg, Start date: 12/11/16 8:00:00 CDT, Duration: 30 day, Stop date: 01/09/17 17:00:00 CDTNotes: Same as: Renvela Inactive 12/11/2016 [facility] ferrous sulfate 325 mg, 1 tab, Route: PO, Drug form: ECTAB, TID-Meals, Dosing Weight 57.7, kg, Start date: 12/11/16 8:00:00 CDT, Duration: 30 day, Stop date: 01/09/17 17:00:00 CDTNotes: Give with food. "Do Not Crush" Inactive 12/11/2016 [facility] Hydralazine 10 mg, 0.5 mL, Route: IVP, Drug form: INJ, Q4H, Dosing Weight 57.7, kg, Priority: NOW, Start date: 12/11/16 3:29:00 CDT, Duration: 30 day, Stop date: 01/10/17 0:00:00 CDTNotes: (Same as: Apresoline) Push over 5 minutes Inactive 12/11/2016 [facility] 24 HR Nifedipine 90 MG Extended Release Tablet 90 mg, 1 tab, Route: PO, Drug form: ERTAB, Daily, Dosing Weight 57.7, kg, Priority: NOW, Start date: 12/11/16 3:28:00 CDT, Duration: 30 day, Stop date: 01/09/17 9:00:00 CDTNotes: (Same as: Adalat CC,Procardia XL) "Do Not Crush" "Avoid grapefruit and grapefruit juice" Inactive 12/11/2016 [facility] carvedilol 12.5 mg, 1 tab, Route: PO, Drug form: TAB, Q12H, Dosing Weight 57.7, kg, Priority: NOW, Start date: 12/11/16 3:28:00 CDT, Duration: 30 day, Stop date: 01/09/17 21:00:00 CDTNotes: Give with food. (Same As: Coreg) Inactive 12/11/2016 [facility] Albuterol 0.833 MG/ML / Ipratropium Clayton 0.167 MG/ML Inhalant Solution 3 mL, Route: INHALATION, Drug Form: SOLN, Dosing Weight 57.7, kg, Q6H, PRN Wheezing, Start date: 12/11/16 3:25:00 CDT, Duration: 30 day, Stop date: 01/10/17 3:24:00 CDTNotes: (Same as: Duoneb) Inactive 12/11/2016 [facility] Bisacodyl 10 mg, 1 supp, Route: AZ, Drug form: SUPP, Daily, Dosing Weight 57.7, kg, PRN Constipation, Start date: 12/11/16 3:25:00 CDT, Duration: 30 day, Stop date: 01/10/17 3:24:00 CDTNotes: (Same As: Dulcolax, Bisco-Lax) Inactive 12/11/2016 [facility] Sodium Bicarbonate 325 MG Oral Tablet 2 tabs, PO, TID, 0 Refill(s) Active 12/11/2016 [facility] predniSONE 10 mg oral tablet 15 mg=1.5 tab, PO, Daily, x 90 days, 0 Refill(s) Active 12/11/2016 [facility] sevelamer carbonate 800 MG Oral Tablet [Renvela] 1,600 mg=2 tab, PO, TID-Meals, # 180 tab, 0 Refill(s) Active 12/11/2016 [facility] Clotrimazole 10 MG/ML Topical Solution 1 appl, TOP, BID, # 15 mL, 0 Refill(s) Active 12/11/2016 [facility] vancomycin 125 mg oral capsule See Instructions, 1 cap PO Q6H x2d then q12 x7d then daily x7d then every other day x14d, 0 Refill(s) No Longer Active 12/11/2016 [facility] Ciprofloxacin 500 MG Oral Tablet [Cipro] 500 mg=1 tab, PO, Daily, 0 Refill(s) No Longer Active 12/11/2016 [facility] sevelamer carbonate 800 mg oral tablet 1,600 mg=2 tab, PO, TID, with meals, 0 Refill(s) No Longer Active 12/11/2016 [facility] 24 HR Nifedipine 90 MG Extended Release Tablet 90 mg=1 tab, PO, Daily, # 30 tab, 0 Refill(s) Active 12/11/2016 [facility] Bisacodyl 10 mg, AZ, Daily, PRN constipation, 0 Refill(s) No Longer Active 12/11/2016 [facility] ferrous sulfate 325 mg oral enteric coated tablet 325 mg=1 tab, PO, TID, Start with 1 tab daily x 3 days, advance as tolerate, use stool softners and laxatives as needed for constipation, # 90 tab, 3 Refill(s) Active 12/11/2016 [facility] Albuterol 0.833 MG/ML / Ipratropium Clayton 0.167 MG/ML Inhalant Solution 3 mL, INHALATION, Q6H, PRN Wheezing, # 30 ea, 1 Refill(s) No Longer Active 12/11/2016 [facility] Ergocalciferol 22206 UNT Oral Capsule 50,000 IntlUnit=1 cap, PO, qWeek, # 8 cap, 0 Refill(s) Active 12/11/2016 [facility] dexlansoprazole 30 MG Enteric Coated Capsule [Dexilant] 30 mg=1 cap, PO, Daily, # 30 cap, 1 Refill(s) Active 12/11/2016 [facility] Fluticasone propionate 0.05 MG/ACTUAT Metered Dose Nasal Plummer 1 spray, NASAL, BID, # 16 gm, 0 Refill(s) Active 12/11/2016 [facility] carvedilol 12.5 mg oral tablet 12.5 mg=1 tab, PO, Q12H, # 60 tab, 0 Refill(s) Active 12/11/2016 [facility] Sodium Chloride 0.154 MEQ/ML Inhalant Solution See Instructions, PRN Congestion, 2 sprays, 0 Refill(s) No Longer Active 12/11/2016 [facility] Insulin, Aspart, Human 4 unit, 0.04 mL, Route: SUB-Q, Drug form: SOLN, Bedtime, Dosing Weight 57.7, kg, PRN Blood Glucose Results, Start date: 12/10/16 23:32:00 CDT, Duration: 30 day, Stop date: 01/09/17 23:31:00 CDTNotes: Roll in palms of hands gently; Do not shake vigorously. (Same as: NovoLOG) "single patient use only" WASTE: F/P - Black; E - Aveillant Trash Bin Stable for 28 days at room temperature. Expires in days from Date No Longer Active 12/11/2016 [facility] Dextrose 50% Syringe 12.5 gm, 25 mL, Route: IVP, Drug Form: INJ, Dosing Weight 57.7, kg, PRN, PRN Blood Glucose Results, Start date: 12/10/16 23:32:00 CDT, Duration: 30 day, Stop date: 01/09/17 23:31:00 CDT No Longer Active 12/11/2016 [facility] Glucagon 1 mg, Route: IM, Drug form: PDR/INJ, PRN, Dosing Weight 57.7, kg, PRN Blood Glucose Results, Start date: 12/10/16 23:32:00 CDT, Duration: 30 day, Stop date: 01/09/17 23:31:00 CDT No Longer Active 12/11/2016 [facility] Procrit 7,500 unit, 0.75 mL, Route: SUB-Q, Drug form: INJ, After Dialysis, Dosing Weight 72.727, kg, PRN Dialysis, Start date: 12/10/16 23:18:00 CDT, Duration: 30 day, Stop date: 01/09/17 23:17:00 CDTNotes: (Same as: Procrit) epoetin jay 81184 unit/1 ml VL. For dialysis use only. (Procrit) WASTE: F/P - Red; E -Red MEDICATION WASTE Product Size: 39563 unit Product Wasted: ___ unit No Longer Active 12/11/2016 [facility] Saline Flush 0.9% 10 ml, Route: IVP, Drug Form: INJ, Dosing Weight 72.727, kg, PRN, PRN Line Flush, Start date: 12/10/16 23:11:00 CDT, Duration: 30 day, Stop date: 01/09/17 23:10:00 CDTNotes: (Same as: BD Posiflush) No Longer Active 12/11/2016 [facility] Nystatin 100 UNT/MG Topical Powder 1 appl, Route: TOP, PRN, Drug form: PWDR, PRN For Fungal Prophylaxis, Start date: 12/10/16 23:11:00 CDT, Duration: 30 day, Stop date: 01/09/17 23:10:00 CDTNotes: (Same as:Mycostatin, Nilstat) For external use only. No Longer Active 12/11/2016 [facility] Allergies, Adverse Reactions, Alerts No Known Medication [...] Moderate *ABN* (01/05/18 12:25 AM) Negative 01/05/2018 [facility] URINE AND STOOL UA Bili Negative *NA* (01/05/18 12:25 AM) Negative 01/05/2018 [facility] URINE AND STOOL UA Nitrite Positive *ABN* (01/05/18 12:25 AM) Negative 01/05/2018 [facility] URINE AND STOOL UA Protein Negative mg/dL Negative mg/dL 01/05/2018 [facility] URINE AND STOOL UA pH 5.0 5.0 - 8.0 01/05/2018 [facility] URINE AND STOOL UA Ketones Negative mg/dL Negative mg/dL 01/05/2018 [facility] URINE AND STOOL UA Glucose Negative mg/dL Negative mg/dL 01/05/2018 [facility] URINE AND STOOL UA Color Yellow *NA* (01/05/18 12:25 AM) Yellow 01/05/2018 [facility] URINE AND STOOL UA Spec Grav 1.020 <=1.030 01/05/2018 [facility] URINE AND STOOL UA Turbidity Marked *ABN* (01/05/18 12:25 AM) Clear 01/05/2018 [facility] CARDIAC ENZYMES CK MB <1.0 0.5 - 3.6 01/05/2018 [facility] CARDIAC ENZYMES Troponin-I <0.02 0.00 - 0.40 01/05/2018 [facility] CARDIAC ENZYMES Total CK 105 12 - 191 01/05/2018 [facility] CARDIAC ENZYMES CK MB Index <1.0 0.0 - 2.5 01/05/2018 [facility] CHEM PANEL eGFR 75 01/05/2018 Result [...] should be multiplied by the estimated BMI. [facility] CHEM PANEL Albumin Lvl 3.5 3.5 - 5.0 01/05/2018 [facility] CHEM PANEL Calcium Lvl 8.8 8.5 - 10.5 01/05/2018 [facility] CHEM PANEL Chloride Lvl 106 95 - 109 01/05/2018 [facility] CHEM PANEL CO2 27 24 - 32 01/05/2018 [facility] CHEM PANEL Sodium Lvl 138 135 - 145 01/05/2018 [facility] CHEM PANEL Potassium Lvl 3.6 3.5 - 5.1 01/05/2018 [facility] CHEM PANEL BUN 17 7 - 22 01/05/2018 [facility] CHEM PANEL Creatinine Lvl 0.90 0.50 - 1.40 01/05/2018 [facility] CHEM PANEL B/C Ratio 19 6 - 25 01/05/2018 [facility] CHEM PANEL Bili Total 0.4 0.2 - 1.3 01/05/2018 [facility] CHEM PANEL Globulin 4.4 2.7 - 4.2 01/05/2018 [facility] CHEM PANEL AGAP 8.6 10.0 - 20.0 01/05/2018 [facility] CHEM PANEL A/G Ratio 0.8 0.7 - 1.6 01/05/2018 [facility] CHEM PANEL Glucose Lvl 77 70 - 99 01/05/2018 [facility] CHEM PANEL Total Protein 7.9 6.4 - 8.4 01/05/2018 [facility] CHEM PANEL AST 35 0 - 37 01/05/2018 [facility] CHEM PANEL Alk Phos 51 39 - 136 01/05/2018 [facility] CHEM PANEL ALT 52 0 - 65 01/05/2018 [facility] PTT 30.0 22.9 - 35.8 01/05/2018 [facility] PT 12.5 12.0 - 14.7 01/05/2018 [facility] INR 0.93 0.85 - 1.17 01/05/2018 [facility] MCHC 34.4 32.0 - 36.0 01/05/2018 [facility] MPV 9.1 7.4 - 10.4 01/05/2018 [facility] MCH 31.8 27.0 - 31.0 01/05/2018 [facility] Platelet 306 133 - 450 01/05/2018 [facility] RDW 13.9 11.5 - 14.5 01/05/2018 [facility] MCV 92.3 80.0 - 98.0 01/05/2018 [facility] Hct 39.1 36.0 - 48.0 01/05/2018 [facility] WBC 10.1 3.7 - 10.4 01/05/2018 [facility] Hgb 13.4 12.0 - 16.0 01/05/2018 [facility] RBC 4.23 4.20 - 5.40 01/05/2018 [facility] Segs-Bands # 3.3 1.5 - 8.1 01/05/2018 [facility] Monocytes 12.0 2.0 - 12.0 01/05/2018 [facility] Segs 32.3 45.0 - 75.0 01/05/2018 [facility] Lymphocytes 50.4 20.0 - 40.0 01/05/2018 [facility] Monocytes # 1.2 0.0 - 0.8 01/05/2018 [facility] HEMATOLOGY Eosinophils 4.9 0.0 - 4.0 01/05/2018 [facility] HEMATOLOGY Eosinophils # 0.5 0.0 - 0.5 01/05/2018 [facility] HEMATOLOGY Basophils 0.4 0.0 - 1.0 01/05/2018 [facility] Lymphocytes # 5.1 1.0 - 5.5 01/05/2018 [facility] CHEM PANEL eGFR 10 12/11/2016 Result [...] should be multiplied by the estimated BMI. [facility] CHEM PANEL Chloride Lvl 100 95 - 109 12/11/2016 [facility] CHEM PANEL Sodium Lvl 138 135 - 145 12/11/2016 [facility] CHEM PANEL Potassium Lvl 3.6 3.5 - 5.1 12/11/2016 [facility] CHEM PANEL BUN 33 7 - 22 12/11/2016 [facility] CHEM PANEL Creatinine Lvl 4.83 0.50 - 1.40 12/11/2016 [facility] CHEM PANEL Calcium Lvl 8.0 8.5 - 10.5 12/11/2016 [facility] CHEM PANEL CO2 27 24 - 32 12/11/2016 [facility] CHEM PANEL AGAP 14.6 10.0 - 20.0 12/11/2016 [facility] CHEM PANEL Glucose Lvl 71 70 - 99 12/11/2016 [facility] HEMATOLOGY Basophils 0.6 0.0 - 1.0 12/11/2016 [facility] HEMATOLOGY Eosinophils 1.7 0.0 - 4.0 12/11/2016 [facility] HEMATOLOGY Monocytes 7.5 2.0 - 12.0 12/11/2016 [facility] HEMATOLOGY Lymphocytes 7.5 20.0 - 40.0 12/11/2016 [facility] HEMATOLOGY Eosinophils # 0.1 0.0 - 0.5 12/11/2016 [facility] HEMATOLOGY Monocytes # 0.5 0.0 - 0.8 12/11/2016 [facility] HEMATOLOGY Lymphocytes # 0.5 1.0 - 5.5 12/11/2016 [facility] HEMATOLOGY Segs 82.7 45.0 - 75.0 12/11/2016 [facility] HEMATOLOGY Segs-Bands # 5.8 1.5 - 8.1 12/11/2016 [facility] Hgb 9.2 12.0 - 16.0 12/11/2016 [facility] HEMATOLOGY MCV 85.5 80.0 - 98.0 12/11/2016 [facility] MCH 28.9 27.0 - 31.0 12/11/2016 [facility] MCHC 33.8 32.0 - 36.0 12/11/2016 [facility] HEMATOLOGY Hct 27.4 36.0 - 48.0 12/11/2016 [facility] MPV 7.1 7.4 - 10.4 12/11/2016 [facility] Platelet 203 133 - 450 12/11/2016 [facility] RDW 14.5 11.5 - 14.5 12/11/2016 [facility] RBC 3.20 4.20 - 5.40 12/11/2016 [facility] WBC 7.0 3.7 - 10.4 12/11/2016 [facility] CHEM PANEL eGFR 3 12/11/2016 Result Comment: [...] should be multiplied by the estimated BMI. [facility] CHEM PANEL CO2 21 24 - 32 12/11/2016 [facility] CHEM PANEL Chloride Lvl 99 95 - 109 12/11/2016 [facility] CHEM PANEL AGAP 25.7 10.0 - 20.0 12/11/2016 [facility] CHEM PANEL Calcium Lvl 7.7 8.5 - 10.5 12/11/2016 [facility] CHEM PANEL Sodium Lvl 139 135 - 145 12/11/2016 [facility] CHEM PANEL Potassium Lvl 6.7 3.5 - 5.1 12/11/2016 Result Comment: Critical Result(s) called to Debra Lindquist RN at 12/11/2016 00:09 by RA. Read back OK. [facility] CHEM PANEL Glucose Lvl 84 70 - 99 12/11/2016 [facility] CHEM PANEL BUN 114 7 - 22 12/11/2016 [facility] CHEM PANEL Creatinine Lvl 12.40 0.50 - 1.40 12/11/2016 [facility] HEMATOLOGY Platelet 223 133 - 450 12/11/2016 [facility] MPV 7.4 7.4 - 10.4 12/11/2016 [facility] RDW 14.6 11.5 - 14.5 12/11/2016 [facility] MCHC 33.4 32.0 - 36.0 12/11/2016 [facility] MCH 28.9 27.0 - 31.0 12/11/2016 [facility] HEMATOLOGY MCV 86.4 80.0 - 98.0 12/11/2016 [facility] Hct 27.2 36.0 - 48.0 12/11/2016 [facility] HEMATOLOGY WBC 8.6 3.7 - 10.4 12/11/2016 [facility] Hgb 9.1 12.0 - 16.0 12/11/2016 [facility] RBC 3.15 4.20 - 5.40 12/11/2016 [facility] HEMATOLOGY Basophils 0.4 0.0 - 1.0 12/11/2016 [facility] HEMATOLOGY Segs-Bands # 7.6 1.5 - 8.1 12/11/2016 [facility] HEMATOLOGY Monocytes 5.9 2.0 - 12.0 12/11/2016 [facility] HEMATOLOGY Lymphocytes 4.2 20.0 - 40.0 12/11/2016 [facility] HEMATOLOGY Segs 89.1 45.0 - 75.0 12/11/2016 [facility] HEMATOLOGY Eosinophils 0.4 0.0 - 4.0 12/11/2016 [facility] Lymphocytes # 0.4 1.0 - 5.5 12/11/2016 [facility] Monocytes # 0.5 0.0 - 0.8 12/11/2016 [facility] Anisocyte 1+ *ABN* (12/10/16 11:20 PM) None Seen 12/11/2016 [facility] HEMATOLOGY Plt Morph Normal (12/10/16 11:20 PM) 12/11/2016 [facility] IMMUNOLOGY Hep Bs Ab <3.1 <=7.4 mIU/mL 12/11/2016 [facility] IMMUNOLOGY Hep Bs Ag Negative *NA* (12/10/16 11:20 PM) Negative 12/11/2016 [facility] SPECIAL CHEMISTRY Hgb A1C 4.8 <=5.6 % 12/11/2016 [facility] Pathology Reports No Data Provided for This [...] right lower extremity DVT SL: [id number] 01/04/2018 [facility] Spine cervical wo contrast CT CT [...] of the cervical spine. SL: [id number] 01/04/2018 [facility] 1view DX Clinical Indication: - right hand numbness; Comparison: 12/10/2016 FINDINGS: AP chest radiographs shows normal lung volumes without interstitial or airspace opacities, pleural effusions or pneumothorax. The heart size and pulmonary vasculature are normal. The trachea is midline. There are no clinically significant osseous abnormalities noted. IMPRESSION: No chest radiographic evidence of acute cardiopulmonary disease. SL: WR4-M 01/04/2018 [facility] 1view DX Clinical Indication: Shortness of Breath [...] present in satisfactory locations. SL: 82 12/10/2016 [facility] Consultation Notes No Data Provided for This Section Discharge Summaries No Data Provided for This Section History and Physicals No Data Provided for This Section Vital Signs Vital Sign Value Date Comments Source Systolic (mm Hg) 118 01/05/2018 [facility] Diastolic (mm Hg) 76 01/05/2018 [facility] Respitory Rate 16 01/05/2018 [facility] Temperature Oral (F) 98 F 01/05/2018 [facility] Heart Rate 86 01/05/2018 [facility] Heart Rate 83 01/04/2018 [facility] Respitory Rate 18 01/04/2018 [facility] Systolic (mm Hg) 127 01/04/2018 [facility] Diastolic (mm Hg) 87 01/04/2018 [facility] Temperature Oral (F) 98.7 F 01/04/2018 [facility] Systolic (mm Hg) 129 12/11/2016 [facility] Diastolic (mm Hg) 79 12/11/2016 [facility] Respitory Rate 20 12/11/2016 [facility] Systolic (mm Hg) 144 12/11/2016 [facility] Diastolic (mm Hg) 83 12/11/2016 [facility] Respitory Rate 25 12/11/2016 [facility] Systolic (mm Hg) 135 12/11/2016 [facility] Diastolic (mm Hg) 76 12/11/2016 [facility] Respitory Rate 20 12/11/2016 [facility] BMI Calculated 25.69 12/11/2016 [facility] Height 149.86 cm 12/11/2016 [facility] Weight 57.7 12/11/2016 [facility] Height 149.86 cm 12/11/2016 [facility] Weight 57.007 12/11/2016 [facility] BMI Calculated 25.38 12/11/2016 [facility] Encounters Location Location Details Encounter Type Encounter Number Reason For Visit Attending Provider ADM Date DC Date Status Source OD [id number] 278.0 - OBESITY JUDY PONCE 02/24/2012 [facility] In[facility] [id number] Osmund Agbo 12/11/2016 12/11/2016 [facility] Emergency [id number] Tim Pham 01/04/2018 01/05/2018 [facility] Procedures Procedure Code Date Perfomer Comments Source Hysterectomy [id number] 12/08/2014 [facility] section [id number] [facility] Tracheostomy [id number] [facility] Assessment and Plan Assessment and Plan [...] Hemodialysis CONSULTANTS: Attending: Eusebio Valiente MD.....Office: .....MSO: [id number] Status: Inpatient Code Status: None Specified=FULL CODE [...] Working DRG: MISC DISORDERS OF NUTRITION,METABOLISM,FLUIDS/ELECTROLYTES W/O HALFWAY Diet: Diet Renal 80,2,2,1(pro,sod,pot,phos) PCP: PCP, Maria Isabel BOURGEOIS.....Office: (not on file).....MSO: [id number] Consulting Physicians: Chandler Wooten MD Office: MSO: [...] MD Date: 12/10/16 Impression and Plan 12/11/2016 [facility] Plan of Care No Data Provided for This Section Social History Social History Date Source Social History TypeResponse Smoking Status Never smoker; Type: Cigarettes; Previous treatment: None; Ready to change: No; Concerns about tobacco use in household: No; Exposure to Tobacco Smoke None; Cigarette Smoking Last 365 Days No; Reg Smoking Cessation Counseling No entered on: 01/04/18 01/05/2018 [facility] Social History TypeResponse Smoking Status Never smoker; Exposure to Tobacco Smoke None; Cigarette Smoking Last 365 Days No; Reg Smoking Cessation Counseling No 12/11/2016 [facility] Family History No Data Provided for This Section Advance Directives No Data Provided for This Section Functional Status No Data Provided for This Section
--- NOTE | 2019-04-24 14:24 | Diagnostic Imaging Report ---
EXAMINATION: PA and lateral views of the chest. COMPARISON: None CLINICAL HISTORY: Lower extremity edema, shortness of breath DISCUSSION: Lines/tubes: None. Lungs: The lungs are well inflated and clear. There is no evidence of pneumonia or pulmonary edema. Pleura: There is no pleural effusion or pneumothorax. Heart and mediastinum: Cardiomediastinal silhouette is unremarkable. Pulmonary vasculature is normal. Bones and soft tissues: No acute bony abnormalities. Degenerative changes in the thoracic spine IMPRESSION: No acute cardiopulmonary abnormalities. Signed by: Dr. Emmanuel Martinez M.D. on 04/24/2019 2:21 PM
[2019-04-24 14:32] LABS: BASOPHILS % 0.3 % (0.0-1.0); EOSINOPHILS # (AUTO) 0.1 (0.0-0.4); EOSINOPHILS % 1.2 % (0.0-6.0); HEMOGLOBIN 11.8 g/dL (12.0-16.0); LYMPHOCYTES # (AUTO) 4.7 (1.0-3.2); LYMPHOCYTES % 41.7 % (18.0-39.1); MEAN CORPUSCULAR HEMOGLOBIN 31.2 pg (28-32); MEAN CORPUSCULAR HGB CONC 32.8 g/dL (31-35); MEAN CORPUSCULAR VOLUME 95.2 fL (81-99); MONOCYTES % 9.1 % (4.4-11.3); NEUTROPHILS # (AUTO) 5.3 (2.1-6.9); NEUTROPHILS % 47.5 % (38.7-80.0); PLATELET COUNT 279 x10e3/uL (140-360); RED BLOOD COUNT 3.78 x10e6/uL (3.6-5.1); RED CELL DISTRIBUTION WIDTH 12.3 % (11.7-14.4)
[2019-04-24 14:35] LABS: INR 0.92; PARTIAL THROMBOPLASTIN TIME 26.2 seconds (23.8-35.5); PROTHROMBIN TIME 12.8 seconds (11.9-14.5)
[2019-04-24 14:45] LABS: ALANINE AMINOTRANSFERASE 29 IU/L (0-55); ALBUMIN 3.2 g/dL (3.5-5.0); ALBUMIN/GLOBULIN RATIO 0.9 (0.8-2.0); ALKALINE PHOSPHATASE 43 IU/L (40-150); ANION GAP 9.4 mmol/L (8-16); BLOOD UREA NITROGEN 10 mg/dL (7-26); BUN/CREATININE RATIO 11 (6-25); CALCIUM 9.2 mg/dL (8.4-10.2); CARBON DIOXIDE 26 mmol/L (22-29); CHLORIDE 106 mmol/L (98-107); CREATINE KINASE 128 IU/L (29-168); CREATININE, SERUM 0.93 mg/dL (0.57-1.11); EST GLOMERULAR FILTRATION RATE > 60 ML/MIN (60-); GLUCOSE 93 mg/dL (74-118); MAGNESIUM 2.1 MG/DL (1.3-2.1); POTASSIUM 3.4 mmol/L (3.5-5.1); SODIUM 138 mmol/L (136-145)
[2019-04-24] MEDS ORDERED: POTASSIUM CHLORIDE 20 MEQ TAB CR PO STA (14:49)
[2019-04-24] MEDS ORDERED: OMEPRAZOLE 20 MG CAP PO STA (14:52)
[2019-04-24 15:09] LABS: BILIRUBIN,URINE NEGATIVE (NEGATIVE); CLARITY,URINE HAZY (CLEAR); COLOR,URINE YELLOW (YELLOW); KETONES,URINE NEGATIVE (NEGATIVE); LEUKOCYTE ESTERASE ,URINE TRACE (NEGATIVE); NITRITE,URINE NEGATIVE (NEGATIVE); PROTEIN,URINE DIPSTICK TRACE (NEGATIVE); URINE UROBILINOGEN 0.2 mg/dL (0.2 - 1)
[2019-04-24 15:31] LABS: RBC,URINE >50 /HPF (0-5)
[2019-04-24 15:32] LABS: BACTERIA,URINE FEW /HPF; EPITHELIAL CELLS,URINE RARE /LPF
[2019-04-24] MEDS ORDERED: POTASSIUM CHLO20 ME1 PO (16:08)
[2019-04-24] MEDS ORDERED: FUROSEMIDE INJ 10 MG/ML 4 ML VIAL IV ONE (16:15)
[2019-04-24 16:42] VITALS: BP 128/82
== END 2019-04-24 16:52 | disposition home or self-care (01) ==
LOC: ER 13:08
DX: R60.9 Edema, unspecified (principal); M79.662 Pain in left lower leg; M79.661 Pain in right lower leg; E87.6 Hypokalemia; K52.9 Noninfective gastroenteritis and colitis, unspecified; I70.213 Atherosclerosis of native arteries of extremities with intermittent claudication, bilateral legs
CPT/HCPCS: 36415; 71046; 80053; 81001; 82550; 82553; 83735; 83880; 84484; 85025; 85610; 85730; 93005; 93970; 99284; J1940

== ENCOUNTER 2019-05-02 18:42 | Inpatient (IN) | payer BC ==
[~2019-05-02] VITALS: Ht 137.2 cm; Wt 83.0 kg
[~2019-05-02 18:42] MED LIST changes: +POTASSIUM CHLO20 ME1 PO
--- OUTSIDE RECORDS SUMMARY | 2019-05-02 18:44 | XMS REPORT | Clinical Summary ---
Author Author [facility] Organization [facility] Address Unknown Phone Unavailable Care Team Providers Care Clinical Operations Specialist Name Role Phone Asked, No Pcp PCP [...] (Primary Dx) 03/28/2019 Office Visit Cardiovascular after 05/01/2018 Social History Date Tobacco Use Types Packs/Day [...] - Body Mass Index Plan of Treatment Health Maintenance Due Date Last Done Comments CERVICAL CANCER SCREENING 01/13/1989 BREAST CANCER SCREENING 01/13/2018 COLONOSCOPY SCREENING 01/13/2018 SHINGLES VACCINES (#1) 01/13/2018 INFLUENZA VACCINE 04/07/2019 Results Not on fileafter 05/01/2018 Insurance Type Payer Benefit Subscriber ID Effective Phone Address Plan / Dates Group PPO BCBS BCBS xxxxxxxxxxxx [id number] CHOICE resent PPO/[employer] [id number] PPO Advance Directives For more information, please contact: [phone] 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
--- OUTSIDE RECORDS SUMMARY | 2019-05-02 18:45 | XMS REPORT | Continuity of Care Document ---
Author Author [employer] Address Unknown Phone Unavailable Care Team Providers Care Assisted Living Home Director Name Role Phone SUPR Information [place] Unavailable Unavailable Problems Problem Status Onset Date Classification Date Reported Comments Source Escherichia coli (organism) Active 01/05/2018 Problem 01/15/2018 urine (ESBL+), 01/05/2018 Problem added by Discern Expert. [facility] ARM NUMBNESS/SOB Active 01/04/2018 [facility] HYPERKALEMIA Active 12/10/2016 [facility] 278.0 - OBESITY Active 02/24/2012 [facility] [place] Radiculopathy, site unspecified 01/15/2018 [facility] Urinary tract infection, site not specified 01/15/2018 [facility] Essential (primary) hypertension 01/15/2018 [facility] Hypertensive disorder, systemic arterial (disorder) Resolved Problem 01/15/2018 [facility] Renal failure syndrome (disorder) Resolved Problem 01/15/2018 [facility] Stenosis of larynx (disorder) Resolved Problem 01/15/2018 [facility] Vasculitis (disorder) Resolved Problem 01/15/2018 [facility] HYPERKALEMIA Active [facility] Medications Medication Details Route Status Patient Instructions Ordering Provider Order Date Source tramadol hydrochloride 50 MG Oral Tablet [Ultram] 50 mg=1 tab, PO, Q6H, PRN pain, X 3 day, # 12 tab, 0 Refill(s) No Longer Active 01/05/2018 [facility] Cephalexin 500 MG Oral Capsule [Keflex] 500 mg=1 cap, PO, TID, X 10 day, # 30 cap, 0 Refill(s) Active 01/05/2018 [facility] Saline Flush 0.9% 10 mL, Route: IVP, Drug Form: INJ, Dosing Weight 57.7, kg, PRN, PRN Line Flush, Start date: 01/04/18 22:28:00 CDT, Duration: 30 day, Stop date: 02/03/18 22:27:00 CDTNotes: (Same as: BD Posiflush) No Longer Active 01/05/2018 [facility] Tylenol 650 mg, 2 tab, Route: PO, Drug form: TAB, Q6H, Dosing Weight 57.7, kg, PRN Pain Score 1-3, Start date: 12/11/16 9:38:00 CDT, Duration: 30 day, Stop date: 01/10/17 9:37:00 CDTNotes: Do not exceed 4 gm/day. (Same as: Tylenol) Inactive 12/11/2016 [facility] Saline Flush 0.9% 10 ml, Route: IVP, Drug Form: INJ, Dosing Weight 72.727, kg, Q12H, Start date: 12/11/16 9:00:00 CDT, Duration: 30 day, Stop date: 01/09/17 21:00:00 CDTNotes: (Same as: BD Posiflush) Inactive 12/11/2016 [facility] 24 HR Nifedipine 90 MG Extended Release Tablet 90 mg, 1 tab, Route: PO, Drug form: ERTAB, Daily, Dosing Weight 57.7, kg, Start date: 12/11/16 9:00:00 CDT, Duration: 30 day, Stop date: 01/09/17 9:00:00 CDT Inactive 12/11/2016 [facility] heparin 5,000 unit, 1 mL, Route: SUB-Q, Drug form: INJ, Q12H, Dosing Weight 72.727, kg, Start date: 12/11/16 9:00:00 CDT, Duration: 30 day, Stop date: 01/09/17 21:00:00 CDTNotes: porcine heparin Inactive 12/11/2016 [facility] Protonix 40 mg, 1 tab, Route: PO, Drug form: ECTAB, Before Breakfast, Start date: 12/11/16 9:00:00 CDT, Stop date: 01/09/17 7:30:00 CDTNotes: Tablet should not be chewed or crushed. (Same as: Protonix) Inactive 12/11/2016 [facility] Prednisone 15 mg, 3 tab, Route: PO, Drug form: TAB, Daily, Dosing Weight 57.7, kg, Start date: 12/11/16 9:00:00 CDT, Duration: 30 day, Stop date: 01/09/17 9:00:00 CDTNotes: Take with food. Inactive 12/11/2016 [facility] Fluticasone propionate 0.05 MG/ACTUAT Metered Dose Nasal [place] 1 spray, Route: NASAL, Drug Form: SPRY, Dosing Weight 57.7, kg, BID, Start date: 12/11/16 9:00:00 CDT, Duration: 30 day, Stop date: 01/09/17 17:00:00 CDTNotes: (Same as: Flonase) Inactive 12/11/2016 [facility] Ergocalciferol 10595 UNT Oral Capsule 50,000 IntlUnit, 1 cap, Route: PO, Drug form: CAP, qWeek, Dosing Weight 57.7, kg, Start date: 12/11/16 9:00:00 CDT, Duration: 30 day, Stop date: 01/08/17 9:00:00 CDTNotes: (Same as: Vitamin D) "Do Not Crush" Inactive 12/11/2016 [facility] Dexilant 30 mg, Route: PO, Drug form: DRC, Daily, Dosing Weight 57.7, kg, Start date: 12/11/16 9:00:00 CDT, Duration: 30 day, Stop date: 01/09/17 9:00:00 CDT Inactive 12/11/2016 [facility] Clotrimazole 10 MG/ML Topical Solution 1 appl, Route: TOP, BID, Drug form: CRM, Start date: 12/11/16 9:00:00 CDT, Duration: 30 day, Stop date: 01/09/17 17:00:00 CDTNotes: For external use only. (Same As: Lotrimin AF, Mycelex) Inactive 12/11/2016 [facility] carvedilol 12.5 mg, Route: PO, Drug form: TAB, Q12H, Dosing Weight 57.7, kg, Start date: 12/11/16 9:00:00 CDT, Duration: 30 day, Stop date: 01/09/17 21:00:00 CDT Inactive 12/11/2016 [facility] Renvela 1,600 mg, 2 tab, Route: PO, Drug form: TAB, TID- Meals, Dosing Weight 57.7, kg, Start date: 12/11/16 8:00:00 CDT, Duration: 30 day, Stop date: 01/09/17 17:00:00 CDTNotes: Same as: Renvela Inactive 12/11/2016 [facility] ferrous sulfate 325 mg, 1 tab, Route: PO, Drug form: ECTAB, TID-Meals, Dosing Weight 57.7, kg, Start date: 12/11/16 8:00:00 CDT, Duration: 30 day, Stop date: 01/09/17 17:00:00 CDTNotes: Give with food. "Do Not Crush" Inactive 12/11/2016 [facility] Hydralazine 10 mg, 0.5 mL, Route: IVP, Drug form: INJ, Q4H, Dosing Weight 57.7, kg, Priority: NOW, Start date: 12/11/16 3:29:00 CDT, Duration: 30 day, Stop date: 01/10/17 0:00:00 CDTNotes: (Same as: Apresoline) Push over 5 minutes Inactive 12/11/2016 [facility] 24 HR Nifedipine 90 MG Extended Release Tablet 90 mg, 1 tab, Route: PO, Drug form: ERTAB, Daily, Dosing Weight 57.7, kg, Priority: NOW, Start date: 12/11/16 3:28:00 CDT, Duration: 30 day, Stop date: 01/09/17 9:00:00 CDTNotes: (Same as: Adalat CC,Procardia XL) "Do Not Crush" "Avoid grapefruit and grapefruit juice" Inactive 12/11/2016 [facility] carvedilol 12.5 mg, 1 tab, Route: PO, Drug form: TAB, Q12H, Dosing Weight 57.7, kg, Priority: NOW, Start date: 12/11/16 3:28:00 CDT, Duration: 30 day, Stop date: 01/09/17 21:00:00 CDTNotes: Give with food. (Same As: Coreg) Inactive 12/11/2016 [facility] Albuterol 0.833 MG/ML / Ipratropium [place] 0.167 MG/ML Inhalant Solution 3 mL, Route: INHALATION, Drug Form: SOLN, Dosing Weight 57.7, kg, Q6H, PRN Wheezing, Start date: 12/11/16 3:25:00 CDT, Duration: 30 day, Stop date: 01/10/17 3:24:00 CDTNotes: (Same as: Duoneb) Inactive 12/11/2016 [facility] Bisacodyl 10 mg, 1 supp, Route: TN, Drug form: SUPP, Daily, Dosing Weight 57.7, kg, PRN Constipation, Start date: 12/11/16 3:25:00 CDT, Duration: 30 day, Stop date: 01/10/17 3:24:00 CDTNotes: (Same As: Dulcolax, [place]isco-Lax) Inactive 12/11/2016 [facility] Sodium Bicarbonate 325 MG Oral Tablet 2 tabs, PO, TID, 0 Refill(s) Active 12/11/2016 [facility] predniSONE 10 mg oral tablet 15 mg=1.5 tab, PO, Daily, x 90 days, 0 Refill(s) Active 12/11/2016 [facility] sevelamer carbonate 800 MG Oral Tablet [Renvela] 1,600 mg=2 tab, PO, TID-Meals, # 180 tab, 0 Refill(s) Active 12/11/2016 [facility] Clotrimazole 10 MG/ML Topical Solution 1 appl, TOP, BID, # 15 mL, 0 Refill(s) Active 12/11/2016 [facility] vancomycin 125 mg oral capsule See Instructions, 1 cap PO Q6H x2d then q12 x7d then daily x7d then every other day x14d, 0 Refill(s) No Longer Active 12/11/2016 [facility] Ciprofloxacin 500 MG Oral Tablet [Cipro] 500 mg=1 tab, PO, Daily, 0 Refill(s) No Longer Active 12/11/2016 [facility] sevelamer carbonate 800 mg oral tablet 1,600 mg=2 tab, PO, TID, with meals, 0 Refill(s) No Longer Active 12/11/2016 [facility] 24 HR Nifedipine 90 MG Extended Release Tablet 90 mg=1 tab, PO, Daily, # 30 tab, 0 Refill(s) Active 12/11/2016 [facility] Bisacodyl 10 mg, TN, Daily, PRN constipation, 0 Refill(s) No Longer Active 12/11/2016 [facility] ferrous sulfate 325 mg oral enteric coated tablet 325 mg=1 tab, PO, TID, Start with 1 tab daily x 3 days, advance as tolerate, use stool softners and laxatives as needed for constipation, # 90 tab, 3 Refill(s) Active 12/11/2016 [facility] Albuterol 0.833 MG/ML / Ipratropium [place] 0.167 MG/ML Inhalant Solution 3 mL, INHALATION, Q6H, PRN Wheezing, # 30 ea, 1 Refill(s) No Longer Active 12/11/2016 [facility] Ergocalciferol 51321 UNT Oral Capsule 50,000 IntlUnit=1 cap, PO, qWeek, # 8 cap, 0 Refill(s) Active 12/11/2016 [facility] dexlansoprazole 30 MG Enteric Coated Capsule [Dexilant] 30 mg=1 cap, PO, Daily, # 30 cap, 1 Refill(s) Active 12/11/2016 [facility] Fluticasone propionate 0.05 MG/ACTUAT Metered Dose Nasal [place] 1 spray, NASAL, BID, # 16 gm, 0 Refill(s) Active 12/11/2016 [facility] carvedilol 12.5 mg oral tablet 12.5 mg=1 tab, PO, Q12H, # 60 tab, 0 Refill(s) Active 12/11/2016 [facility] Sodium Chloride 0.154 MEQ/ML Inhalant Solution See Instructions, PRN Congestion, 2 sprays, 0 Refill(s) No Longer Active 12/11/2016 [facility] Insulin, Aspart, Human 4 unit, 0.04 mL, Route: SUB-Q, Drug form: SOLN, Bedtime, Dosing Weight 57.7, kg, PRN Blood Glucose Results, Start date: 12/10/16 23:32:00 CDT, Duration: 30 day, Stop date: 01/09/17 23:31:00 CDTNotes: Roll in palms of hands gently; Do not shake vigorously. (Same as: NovoLOG) "single patient use only" WASTE: F/P - Black; E - ThemBid Trash Bin Stable for 28 days at room temperature. Expires in days from Date No Longer Active 12/11/2016 [facility] Dextrose 50% Syringe 12.5 gm, 25 mL, Route: IVP, Drug Form: INJ, Dosing Weight 57.7, kg, PRN, PRN Blood Glucose Results, Start date: 12/10/16 23:32:00 CDT, Duration: 30 day, Stop date: 01/09/17 23:31:00 CDT No Longer Active 12/11/2016 [facility] Glucagon 1 mg, Route: IM, Drug form: PDR/INJ, PRN, Dosing Weight 57.7, kg, PRN Blood Glucose Results, Start date: 12/10/16 23:32:00 CDT, Duration: 30 day, Stop date: 01/09/17 23:31:00 CDT No Longer Active 12/11/2016 [facility] Procrit 7,500 unit, 0.75 mL, Route: SUB-Q, Drug form: INJ, After Dialysis, Dosing Weight 72.727, kg, PRN Dialysis, Start date: 12/10/16 23:18:00 CDT, Duration: 30 day, Stop date: 01/09/17 23:17:00 CDTNotes: (Same as: Procrit) epoetin jya 04792 unit/1 ml VL. For dialysis use only. (Procrit) WASTE: F/P - Red; E -Red MEDICATION WASTE Product Size: 28569 unit Product Wasted: ___ unit No Longer Active 12/11/2016 [facility] Saline Flush 0.9% 10 ml, Route: IVP, Drug Form: INJ, Dosing Weight 72.727, kg, PRN, PRN Line Flush, Start date: 12/10/16 23:11:00 CDT, Duration: 30 day, Stop date: 01/09/17 23:10:00 CDTNotes: (Same as: BD Posiflush) No Longer Active 12/11/2016 [facility] Nystatin 100 UNT/MG Topical Powder 1 appl, Route: TOP, PRN, Drug form: PWDR, PRN For Fungal Prophylaxis, Start date: 12/10/16 23:11:00 CDT, Duration: 30 day, Stop date: 01/09/17 23:10:00 CDTNotes: (Same as:Mycostatin, Nilstat) For external use only. No Longer Active 12/11/2016 [facility] Allergies, Adverse Reactions, Alerts No Known [...] Moderate *ABN* (01/05/18 12:25 AM) Negative 01/05/2018 [facility] URINE AND STOOL UA Bili Negative *NA* (01/05/18 12:25 AM) Negative 01/05/2018 [facility] URINE AND STOOL UA Nitrite Positive *ABN* (01/05/18 12:25 AM) Negative 01/05/2018 [facility] URINE AND STOOL UA Protein Negative mg/dL Negative mg/dL 01/05/2018 [facility] URINE AND STOOL UA pH 5.0 5.0 - 8.0 01/05/2018 [facility] URINE AND STOOL UA Ketones Negative mg/dL Negative mg/dL 01/05/2018 [facility] URINE AND STOOL UA Glucose Negative mg/dL Negative mg/dL 01/05/2018 [facility] URINE AND STOOL UA Color Yellow *NA* (01/05/18 12:25 AM) Yellow 01/05/2018 [facility] URINE AND STOOL UA Spec Grav 1.020 <=1.030 01/05/2018 [facility] URINE AND STOOL UA Turbidity Marked *ABN* (01/05/18 12:25 AM) Clear 01/05/2018 [facility] CARDIAC ENZYMES CK MB <1.0 0.5 - 3.6 01/05/2018 [facility] CARDIAC ENZYMES Troponin-I <0.02 0.00 - 0.40 01/05/2018 [facility] CARDIAC ENZYMES Total CK 105 12 - 191 01/05/2018 [facility] CARDIAC ENZYMES CK MB Index <1.0 0.0 - 2.5 01/05/2018 [facility] CHEM PANEL eGFR 75 01/05/2018 Result [...] should be multiplied by the estimated BMI. [facility] CHEM PANEL Albumin Lvl 3.5 3.5 - 5.0 01/05/2018 [facility] CHEM PANEL Calcium Lvl 8.8 8.5 - 10.5 01/05/2018 [facility] CHEM PANEL Chloride Lvl 106 95 - 109 01/05/2018 [facility] CHEM PANEL CO2 27 24 - 32 01/05/2018 [facility] CHEM PANEL Sodium Lvl 138 135 - 145 01/05/2018 [facility] CHEM PANEL Potassium Lvl 3.6 3.5 - 5.1 01/05/2018 [facility] CHEM PANEL BUN 17 7 - 22 01/05/2018 [facility] CHEM PANEL Creatinine Lvl 0.90 0.50 - 1.40 01/05/2018 [facility] CHEM PANEL B/C Ratio 19 6 - 25 01/05/2018 [facility] CHEM PANEL Bili Total 0.4 0.2 - 1.3 01/05/2018 [facility] CHEM PANEL Globulin 4.4 2.7 - 4.2 01/05/2018 [facility] CHEM PANEL AGAP 8.6 10.0 - 20.0 01/05/2018 [facility] CHEM PANEL A/G Ratio 0.8 0.7 - 1.6 01/05/2018 [facility] CHEM PANEL Glucose Lvl 77 70 - 99 01/05/2018 [facility] CHEM PANEL Total Protein 7.9 6.4 - 8.4 01/05/2018 [facility] CHEM PANEL AST 35 0 - 37 01/05/2018 [facility] CHEM PANEL Alk Phos 51 39 - 136 01/05/2018 [facility] CHEM PANEL ALT 52 0 - 65 01/05/2018 [facility] PTT 30.0 22.9 - 35.8 01/05/2018 [facility] PT 12.5 12.0 - 14.7 01/05/2018 [facility] INR 0.93 0.85 - 1.17 01/05/2018 [facility] MCHC 34.4 32.0 - 36.0 01/05/2018 [facility] MPV 9.1 7.4 - 10.4 01/05/2018 [facility] MCH 31.8 27.0 - 31.0 01/05/2018 [facility] Platelet 306 133 - 450 01/05/2018 [facility] RDW 13.9 11.5 - 14.5 01/05/2018 [facility] MCV 92.3 80.0 - 98.0 01/05/2018 [facility] Hct 39.1 36.0 - 48.0 01/05/2018 [facility] WBC 10.1 3.7 - 10.4 01/05/2018 [facility] Hgb 13.4 12.0 - 16.0 01/05/2018 [facility] RBC 4.23 4.20 - 5.40 01/05/2018 [facility] Segs-Bands # 3.3 1.5 - 8.1 01/05/2018 [facility] Monocytes 12.0 2.0 - 12.0 01/05/2018 [facility] Segs 32.3 45.0 - 75.0 01/05/2018 [facility] Lymphocytes 50.4 20.0 - 40.0 01/05/2018 [facility] Monocytes # 1.2 0.0 - 0.8 01/05/2018 [facility] HEMATOLOGY Eosinophils 4.9 0.0 - 4.0 01/05/2018 [facility] HEMATOLOGY Eosinophils # 0.5 0.0 - 0.5 01/05/2018 [facility] HEMATOLOGY Basophils 0.4 0.0 - 1.0 01/05/2018 [facility] Lymphocytes # 5.1 1.0 - 5.5 01/05/2018 [facility] CHEM PANEL eGFR 10 12/11/2016 Result [...] should be multiplied by the estimated BMI. [facility] CHEM PANEL Chloride Lvl 100 95 - 109 12/11/2016 [facility] CHEM PANEL Sodium Lvl 138 135 - 145 12/11/2016 [facility] CHEM PANEL Potassium Lvl 3.6 3.5 - 5.1 12/11/2016 [facility] CHEM PANEL BUN 33 7 - 22 12/11/2016 [facility] CHEM PANEL Creatinine Lvl 4.83 0.50 - 1.40 12/11/2016 [facility] CHEM PANEL Calcium Lvl 8.0 8.5 - 10.5 12/11/2016 [facility] CHEM PANEL CO2 27 24 - 32 12/11/2016 [facility] CHEM PANEL AGAP 14.6 10.0 - 20.0 12/11/2016 [facility] CHEM PANEL Glucose Lvl 71 70 - 99 12/11/2016 [facility] HEMATOLOGY Basophils 0.6 0.0 - 1.0 12/11/2016 [facility] HEMATOLOGY Eosinophils 1.7 0.0 - 4.0 12/11/2016 [facility] HEMATOLOGY Monocytes 7.5 2.0 - 12.0 12/11/2016 [facility] HEMATOLOGY Lymphocytes 7.5 20.0 - 40.0 12/11/2016 [facility] HEMATOLOGY Eosinophils # 0.1 0.0 - 0.5 12/11/2016 [facility] HEMATOLOGY Monocytes # 0.5 0.0 - 0.8 12/11/2016 [facility] HEMATOLOGY Lymphocytes # 0.5 1.0 - 5.5 12/11/2016 [facility] HEMATOLOGY Segs 82.7 45.0 - 75.0 12/11/2016 [facility] HEMATOLOGY Segs-Bands # 5.8 1.5 - 8.1 12/11/2016 [facility] Hgb 9.2 12.0 - 16.0 12/11/2016 [facility] HEMATOLOGY MCV 85.5 80.0 - 98.0 12/11/2016 [facility] MCH 28.9 27.0 - 31.0 12/11/2016 [facility] MCHC 33.8 32.0 - 36.0 12/11/2016 [facility] HEMATOLOGY Hct 27.4 36.0 - 48.0 12/11/2016 [facility] MPV 7.1 7.4 - 10.4 12/11/2016 [facility] Platelet 203 133 - 450 12/11/2016 [facility] RDW 14.5 11.5 - 14.5 12/11/2016 [facility] RBC 3.20 4.20 - 5.40 12/11/2016 [facility] WBC 7.0 3.7 - 10.4 12/11/2016 [facility] CHEM PANEL eGFR 3 12/11/2016 Result [...] should be multiplied by the estimated BMI. [facility] CHEM PANEL CO2 21 24 - 32 12/11/2016 [facility] CHEM PANEL Chloride Lvl 99 95 - 109 12/11/2016 [facility] CHEM PANEL AGAP 25.7 10.0 - 20.0 12/11/2016 [facility] CHEM PANEL Calcium Lvl 7.7 8.5 - 10.5 12/11/2016 [facility] CHEM PANEL Sodium Lvl 139 135 - 145 12/11/2016 [facility] CHEM PANEL Potassium Lvl 6.7 3.5 - 5.1 12/11/2016 Result Comment: Critical Result(s) called to Debra Lindquist RN at 12/11/2016 00:09 by RA. Read back OK. [facility] CHEM PANEL Glucose Lvl 84 70 - 99 12/11/2016 [facility] CHEM PANEL BUN 114 7 - 22 12/11/2016 [facility] CHEM PANEL Creatinine Lvl 12.40 0.50 - 1.40 12/11/2016 [facility] HEMATOLOGY Platelet 223 133 - 450 12/11/2016 [facility] MPV 7.4 7.4 - 10.4 12/11/2016 [facility] RDW 14.6 11.5 - 14.5 12/11/2016 [facility] MCHC 33.4 32.0 - 36.0 12/11/2016 [facility] MCH 28.9 27.0 - 31.0 12/11/2016 [facility] HEMATOLOGY MCV 86.4 80.0 - 98.0 12/11/2016 [facility] Hct 27.2 36.0 - 48.0 12/11/2016 [facility] HEMATOLOGY WBC 8.6 3.7 - 10.4 12/11/2016 [facility] Hgb 9.1 12.0 - 16.0 12/11/2016 [facility] RBC 3.15 4.20 - 5.40 12/11/2016 [facility] HEMATOLOGY Basophils 0.4 0.0 - 1.0 12/11/2016 [facility] HEMATOLOGY Segs-Bands # 7.6 1.5 - 8.1 12/11/2016 [facility] HEMATOLOGY Monocytes 5.9 2.0 - 12.0 12/11/2016 [facility] HEMATOLOGY Lymphocytes 4.2 20.0 - 40.0 12/11/2016 [facility] HEMATOLOGY Segs 89.1 45.0 - 75.0 12/11/2016 [facility] HEMATOLOGY Eosinophils 0.4 0.0 - 4.0 12/11/2016 [facility] Lymphocytes # 0.4 1.0 - 5.5 12/11/2016 [facility] Monocytes # 0.5 0.0 - 0.8 12/11/2016 [facility] Anisocyte 1+ *ABN* (12/10/16 11:20 PM) None Seen 12/11/2016 [facility] HEMATOLOGY Plt Morph Normal (12/10/16 11:20 PM) 12/11/2016 [facility] IMMUNOLOGY Hep Bs Ab <3.1 <=7.4 mIU/mL 12/11/2016 [facility] IMMUNOLOGY Hep Bs Ag Negative *NA* (12/10/16 11:20 PM) Negative 12/11/2016 [facility] SPECIAL CHEMISTRY Hgb A1C 4.8 <=5.6 % 12/11/2016 [facility] Pathology Reports No Data Provided for [...] right lower extremity DVT SL: [id number]-M 01/04/2018 [facility] Spine cervical wo contrast CT CT [...] of the cervical spine. SL: [id number] 01/04/2018 [facility] 1view DX Clinical Indication: - right hand numbness; Comparison: 12/10/2016 FINDINGS: AP chest radiographs shows normal lung volumes without interstitial or airspace opacities, pleural effusions or pneumothorax. The heart size and pulmonary vasculature are normal. The trachea is midline. There are no clinically significant osseous abnormalities noted. IMPRESSION: No chest radiographic evidence of acute cardiopulmonary disease. SL: WR4-M 01/04/2018 [facility] 1view DX Clinical Indication: Shortness of [...] present in satisfactory locations. SL: 82 12/10/2016 [facility] Consultation Notes No Data Provided for This Section Discharge Summaries No Data Provided for This Section History and Physicals No Data Provided for This Section Vital Signs Vital Sign Value Date Comments Source Systolic (mm Hg) 118 01/05/2018 [facility] Diastolic (mm Hg) 76 01/05/2018 [facility] Respitory Rate 16 01/05/2018 [facility] Temperature Oral (F) 98 F 01/05/2018 [facility] Heart Rate 86 01/05/2018 [facility] Heart Rate 83 01/04/2018 [facility] Respitory Rate 18 01/04/2018 [facility] Systolic (mm Hg) 127 01/04/2018 [facility] Diastolic (mm Hg) 87 01/04/2018 [facility] Temperature Oral (F) 98.7 F 01/04/2018 [facility] Systolic (mm Hg) 129 12/11/2016 [facility] Diastolic (mm Hg) 79 12/11/2016 [facility] Respitory Rate 20 12/11/2016 [facility] Systolic (mm Hg) 144 12/11/2016 [facility] Diastolic (mm Hg) 83 12/11/2016 [facility] Respitory Rate 25 12/11/2016 [facility] Systolic (mm Hg) 135 12/11/2016 [facility] Diastolic (mm Hg) 76 12/11/2016 [facility] Respitory Rate 20 12/11/2016 [facility] BMI Calculated 25.69 12/11/2016 [facility] Height 149.86 cm 12/11/2016 [facility] Weight 57.7 12/11/2016 [facility] Height 149.86 cm 12/11/2016 [facility] Weight 57.007 12/11/2016 [facility] BMI Calculated 25.38 12/11/2016 [facility] Encounters Location Location Details Encounter Type Encounter Number Reason For Visit Attending Provider ADM Date DC Date Status Source OD [id number] 278.0 - OBESITY JUDY PONCE 02/24/2012 [id number] Osmund Agbo 12/11/2016 12/11/2016 [facility] Emergency [id number] Tim Pham 01/04/2018 01/05/2018 [facility] Procedures Procedure Code Date Perfomer Comments Source Hysterectomy [id number] 12/08/2014 [facility] section [id number] [facility] Tracheostomy [id number] [facility] Assessment and Plan Assessment and Plan [...] [facility]od[facility] CON[facility]ULTANT[facility]: Attending: Eusebio Valiente MD.....Office: .....MSO: [id number] Status: Inpatient Code Status: None Specified=FULL CODE [...] Working DRG: MISC DISORDERS OF NUTRITION,METABOLISM,FLUIDS/ELECTROLYTES W/O [facility] Diet: Diet Renal 80,2,2,1(pro,sod,pot,phos) PCP: PCP, Maria Isabel BOURGEOIS.....Office: (not on file).....MSO: [id number] Consulting Physicians: Chandler Wooten MD Office: MSO: [...] MD Date: 12/10/16 Impression and Plan 12/11/2016 [facility] Plan of Care No Data Provided for This Section Social History Social History Date Source Social History TypeResponse Smoking Status Never smoker; Type: Cigarettes; Previous treatment: None; Ready to change: No; Concerns about tobacco use in household: No; Exposure to Tobacco Smoke None; Cigarette Smoking Last 365 Days No; Reg Smoking Cessation Counseling No entered on: 01/04/18 01/05/2018 [facility] Social History TypeResponse Smoking Status Never smoker; Exposure to Tobacco Smoke None; Cigarette Smoking Last 365 Days No; Reg Smoking Cessation Counseling No 12/11/2016 [facility] Family History No Data Provided for This Section Advance Directives No Data Provided for This Section Functional Status No Data Provided for This Section
[2019-05-02] MEDS ORDERED: KETOROLAC TROMETHAMINE 30 MG/ML VIAL IV STA (19:19)
[2019-05-02] MEDS ORDERED: ONDANSETRON HCL INJ 2MG/ML 2ML 2 MG/ML VIAL IV STA (19:19)
[2019-05-02 19:32] LABS: BASOPHILS % 0.4 % (0.0-1.0); EOSINOPHILS # (AUTO) 0.3 (0.0-0.4); EOSINOPHILS % 3.4 % (0.0-6.0); HEMOGLOBIN 13.2 g/dL (12.0-16.0); LYMPHOCYTES # (AUTO) 4.3 (1.0-3.2); LYMPHOCYTES % 45.6 % (18.0-39.1); MEAN CORPUSCULAR HEMOGLOBIN 31.6 pg (28-32); MEAN CORPUSCULAR HGB CONC 33.8 g/dL (31-35); MEAN CORPUSCULAR VOLUME 93.3 fL (81-99); MONOCYTES # (AUTO) 1.2 (0.2-0.8); MONOCYTES % 12.3 % (4.4-11.3); NEUTROPHILS # (AUTO) 3.6 (2.1-6.9); PLATELET COUNT 310 x10e3/uL (140-360); RED BLOOD COUNT 4.18 x10e6/uL (3.6-5.1); RED CELL DISTRIBUTION WIDTH 12.5 % (11.7-14.4)
[2019-05-02 19:36] LABS: BILIRUBIN,URINE SMALL (NEGATIVE); CLARITY,URINE SL CLOUDY (CLEAR); KETONES,URINE NEGATIVE (NEGATIVE); LEUKOCYTE ESTERASE ,URINE TRACE (NEGATIVE); NITRITE,URINE POSITIVE (NEGATIVE); URINE UROBILINOGEN 1 mg/dL (0.2 - 1)
[2019-05-02 19:38] LABS: COLOR,URINE AMBER (YELLOW); PREGNANCY TEST, URINE NEGATIVE (NEGATIVE); PROTEIN,URINE DIPSTICK 2+ (NEGATIVE)
[2019-05-02 19:47] LABS: ALBUMIN 3.9 g/dL (3.5-5.0); ALBUMIN/GLOBULIN RATIO 1.1 (0.8-2.0); ANION GAP 15.9 mmol/L (8-16); CALCIUM 9.6 mg/dL (8.4-10.2); CREATININE, SERUM 1.13 mg/dL (0.57-1.11); POTASSIUM 3.9 mmol/L (3.5-5.1)
[2019-05-02 20:06] LABS: BACTERIA,URINE MANY /HPF; EPITHELIAL CELLS,URINE RARE /LPF; WBC,URINE (MAN) 0-5 /HPF (0-5); YEAST,URINE MODERATE
--- NOTE | 2019-05-02 20:08 | Diagnostic Imaging Report ---
Abdomen/KUB INDICATION: ^eval for ureteral stent displacement ^Y COMPARISON: Fluoroscopic images from retrograde pyelogram 04/23/2019, abdomen x-ray 04/22/2019. FINDINGS: Medical Devices: Right ureteral stent has been placed. The superior loop is located at the lower pole of the right renal shadow at the inferior endplate of L2. At fluoroscopy, a catheter was present terminating at the inferior endplate of L1. The inferior loop is at the midline pelvis, possibly within the bladder. No calculus along the course of the stent. Bowel: No dilated bowel loops. Bowel gas pattern is unremarkable. Free air: None Abdominal calcifications: None Organomegaly: None Lung bases: Clear Bones: Unremarkable IMPRESSION: Proximal loop of right ureteral stent may be in the proximal right ureter. CT would be needed for confirmation. Signed by: Dr. Caron Lopez MD on 05/02/2019 8:04 PM
--- OUTSIDE RECORDS SUMMARY | 2019-05-02 21:21 | XMS REPORT | Clinical Summary ---
Author Author [facility] Organization [facility] Address Unknown Phone Unavailable Care Team Providers Care Carpentry Supervisor Name Role Phone Asked, No Pcp PCP [...] Advance Directives For more information, please contact: [phone] Patient Lab Technologist Explanation Type Date Recorded Advance Directives, Living Will and Medical Power of Funeral Director
--- OUTSIDE RECORDS SUMMARY | 2019-05-02 21:21 | XMS REPORT | Continuity of Care Document ---
Author Author [employer] Address Unknown Phone Unavailable Care Team Providers Care Blueprinter Name Role Phone [facility] [employer] [facility] [employer] Unavailable Unavailable Problems Problem Status Onset Date Classification Date Reported Comments Source Escherichia coli (organism) Active 01/05/2018 Problem 01/15/2018 urine (ESBL+), 01/05/2018 Problem added by Discern Expert. [facility] ARM NUMBNESS/SOB Active 01/04/2018 [facility] HYPERKALEMIA Active 12/10/2016 [facility] 278.0 - OBESITY Active 02/24/2012 [facility] [place] Radiculopathy, site unspecified 01/15/2018 [facility] Urinary tract infection, site not specified 01/15/2018 [facility] Essential (primary) hypertension 01/15/2018 [facility] Hypertensive disorder, systemic arterial (disorder) Resolved Problem 01/15/2018 [facility] Renal failure syndrome (disorder) Resolved Problem 01/15/2018 [facility] Stenosis of larynx (disorder) Resolved Problem 01/15/2018 [facility] Vasculitis (disorder) Resolved Problem 01/15/2018 [facility] HYPERKALEMIA Active [facility] Medications Medication Details Route Status Patient Instructions Ordering Provider Order Date Source tramadol hydrochloride 50 MG Oral Tablet [Ultram] 50 mg=1 tab, PO, Q6H, PRN pain, X 3 day, # 12 tab, 0 Refill(s) No Longer Active 01/05/2018 [facility] Cephalexin 500 MG Oral Capsule [Keflex] 500 mg=1 cap, PO, TID, X 10 day, # 30 cap, 0 Refill(s) Active 01/05/2018 [facility] Saline Flush 0.9% 10 mL, Route: IVP, Drug Form: INJ, Dosing Weight 57.7, kg, PRN, PRN Line Flush, Start date: 01/04/18 22:28:00 CDT, Duration: 30 day, Stop date: 02/03/18 22:27:00 CDTNotes: (Same as: BD Posiflush) No Longer Active 01/05/2018 [facility] Tylenol 650 mg, 2 tab, Route: PO, Drug form: TAB, Q6H, Dosing Weight 57.7, kg, PRN Pain Score 1-3, Start date: 12/11/16 9:38:00 CDT, Duration: 30 day, Stop date: 01/10/17 9:37:00 CDTNotes: Do not exceed 4 gm/day. (Same as: Tylenol) Inactive 12/11/2016 [facility] Saline Flush 0.9% 10 ml, Route: IVP, Drug Form: INJ, Dosing Weight 72.727, kg, Q12H, Start date: 12/11/16 9:00:00 CDT, Duration: 30 day, Stop date: 01/09/17 21:00:00 CDTNotes: (Same as: BD Posiflush) Inactive 12/11/2016 [facility] 24 HR Nifedipine 90 MG Extended Release Tablet 90 mg, 1 tab, Route: PO, Drug form: ERTAB, Daily, Dosing Weight 57.7, kg, Start date: 12/11/16 9:00:00 CDT, Duration: 30 day, Stop date: 01/09/17 9:00:00 CDT Inactive 12/11/2016 [facility] heparin 5,000 unit, 1 mL, Route: SUB-Q, Drug form: INJ, Q12H, Dosing Weight 72.727, kg, Start date: 12/11/16 9:00:00 CDT, Duration: 30 day, Stop date: 01/09/17 21:00:00 CDTNotes: porcine heparin Inactive 12/11/2016 [facility] Protonix 40 mg, 1 tab, Route: PO, Drug form: ECTAB, Before Breakfast, Start date: 12/11/16 9:00:00 CDT, Stop date: 01/09/17 7:30:00 CDTNotes: Tablet should not be chewed or crushed. (Same as: Protonix) Inactive 12/11/2016 [facility] Prednisone 15 mg, 3 tab, Route: PO, Drug form: TAB, Daily, Dosing Weight 57.7, kg, Start date: 12/11/16 9:00:00 CDT, Duration: 30 day, Stop date: 01/09/17 9:00:00 CDTNotes: Take with food. Inactive 12/11/2016 [facility] Fluticasone propionate 0.05 MG/ACTUAT Metered Dose Nasal [place] 1 spray, Route: NASAL, Drug Form: SPRY, Dosing Weight 57.7, kg, BID, Start date: 12/11/16 9:00:00 CDT, Duration: 30 day, Stop date: 01/09/17 17:00:00 CDTNotes: (Same as: Flonase) Inactive 12/11/2016 [facility] Ergocalciferol 33969 UNT Oral Capsule 50,000 IntlUnit, 1 cap, Route: PO, Drug form: CAP, qWeek, Dosing Weight 57.7, kg, Start date: 12/11/16 9:00:00 CDT, Duration: 30 day, Stop date: 01/08/17 9:00:00 CDTNotes: (Same as: Vitamin D) "Do Not Crush" Inactive 12/11/2016 [facility] Dexilant 30 mg, Route: PO, Drug form: DRC, Daily, Dosing Weight 57.7, kg, Start date: 12/11/16 9:00:00 CDT, Duration: 30 day, Stop date: 01/09/17 9:00:00 CDT Inactive 12/11/2016 [facility] Clotrimazole 10 MG/ML Topical Solution 1 appl, Route: TOP, BID, Drug form: CRM, Start date: 12/11/16 9:00:00 CDT, Duration: 30 day, Stop date: 01/09/17 17:00:00 CDTNotes: For external use only. (Same As: Lotrimin AF, Mycelex) Inactive 12/11/2016 [facility] carvedilol 12.5 mg, Route: PO, Drug form: TAB, Q12H, Dosing Weight 57.7, kg, Start date: 12/11/16 9:00:00 CDT, Duration: 30 day, Stop date: 01/09/17 21:00:00 CDT Inactive 12/11/2016 [facility] Renvela 1,600 mg, 2 tab, Route: PO, Drug form: TAB, TID- Meals, Dosing Weight 57.7, kg, Start date: 12/11/16 8:00:00 CDT, Duration: 30 day, Stop date: 01/09/17 17:00:00 CDTNotes: Same as: Renvela Inactive 12/11/2016 [facility] ferrous sulfate 325 mg, 1 tab, Route: PO, Drug form: ECTAB, TID-Meals, Dosing Weight 57.7, kg, Start date: 12/11/16 8:00:00 CDT, Duration: 30 day, Stop date: 01/09/17 17:00:00 CDTNotes: Give with food. "Do Not Crush" Inactive 12/11/2016 [facility] Hydralazine 10 mg, 0.5 mL, Route: IVP, Drug form: INJ, Q4H, Dosing Weight 57.7, kg, Priority: NOW, Start date: 12/11/16 3:29:00 CDT, Duration: 30 day, Stop date: 01/10/17 0:00:00 CDTNotes: (Same as: Apresoline) Push over 5 minutes Inactive 12/11/2016 [facility] 24 HR Nifedipine 90 MG Extended Release Tablet 90 mg, 1 tab, Route: PO, Drug form: ERTAB, Daily, Dosing Weight 57.7, kg, Priority: NOW, Start date: 12/11/16 3:28:00 CDT, Duration: 30 day, Stop date: 01/09/17 9:00:00 CDTNotes: (Same as: Adalat CC,Procardia XL) "Do Not Crush" "Avoid grapefruit and grapefruit juice" Inactive 12/11/2016 [facility] carvedilol 12.5 mg, 1 tab, Route: PO, Drug form: TAB, Q12H, Dosing Weight 57.7, kg, Priority: NOW, Start date: 12/11/16 3:28:00 CDT, Duration: 30 day, Stop date: 01/09/17 21:00:00 CDTNotes: Give with food. (Same As: Coreg) Inactive 12/11/2016 [facility] Albuterol 0.833 MG/ML / Ipratropium [place] 0.167 MG/ML Inhalant Solution 3 mL, Route: INHALATION, Drug Form: SOLN, Dosing Weight 57.7, kg, Q6H, PRN Wheezing, Start date: 12/11/16 3:25:00 CDT, Duration: 30 day, Stop date: 01/10/17 3:24:00 CDTNotes: (Same as: Duoneb) Inactive 12/11/2016 [facility] Bisacodyl 10 mg, 1 supp, Route: HI, Drug form: SUPP, Daily, Dosing Weight 57.7, kg, PRN Constipation, Start date: 12/11/16 3:25:00 CDT, Duration: 30 day, Stop date: 01/10/17 3:24:00 CDTNotes: (Same As: Dulcolax, Bisco-Lax) Inactive 12/11/2016 [facility] Sodium Bicarbonate 325 MG Oral Tablet 2 tabs, PO, TID, 0 Refill(s) Active 12/11/2016 [facility] predniSONE 10 mg oral tablet 15 mg=1.5 tab, PO, Daily, x 90 days, 0 Refill(s) Active 12/11/2016 [facility] sevelamer carbonate 800 MG Oral Tablet [Renvela] 1,600 mg=2 tab, PO, TID-Meals, # 180 tab, 0 Refill(s) Active 12/11/2016 [facility] Clotrimazole 10 MG/ML Topical Solution 1 appl, TOP, BID, # 15 mL, 0 Refill(s) Active 12/11/2016 [facility] vancomycin 125 mg oral capsule See Instructions, 1 cap PO Q6H x2d then q12 x7d then daily x7d then every other day x14d, 0 Refill(s) No Longer Active 12/11/2016 [facility] Ciprofloxacin 500 MG Oral Tablet [Cipro] 500 mg=1 tab, PO, Daily, 0 Refill(s) No Longer Active 12/11/2016 [facility] sevelamer carbonate 800 mg oral tablet 1,600 mg=2 tab, PO, TID, with meals, 0 Refill(s) No Longer Active 12/11/2016 [facility] 24 HR Nifedipine 90 MG Extended Release Tablet 90 mg=1 tab, PO, Daily, # 30 tab, 0 Refill(s) Active 12/11/2016 [facility] Bisacodyl 10 mg, HI, Daily, PRN constipation, 0 Refill(s) No Longer Active 12/11/2016 [facility] ferrous sulfate 325 mg oral enteric coated tablet 325 mg=1 tab, PO, TID, Start with 1 tab daily x 3 days, advance as tolerate, use stool softners and laxatives as needed for constipation, # 90 tab, 3 Refill(s) Active 12/11/2016 [facility] Albuterol 0.833 MG/ML / Ipratropium [place] 0.167 MG/ML Inhalant Solution 3 mL, INHALATION, Q6H, PRN Wheezing, # 30 ea, 1 Refill(s) No Longer Active 12/11/2016 [facility] Ergocalciferol 90063 UNT Oral Capsule 50,000 IntlUnit=1 cap, PO, qWeek, # 8 cap, 0 Refill(s) Active 12/11/2016 [facility] dexlansoprazole 30 MG Enteric Coated Capsule [Dexilant] 30 mg=1 cap, PO, Daily, # 30 cap, 1 Refill(s) Active 12/11/2016 [facility] Fluticasone propionate 0.05 MG/ACTUAT Metered Dose Nasal [place] 1 spray, NASAL, BID, # 16 gm, 0 Refill(s) Active 12/11/2016 [facility] carvedilol 12.5 mg oral tablet 12.5 mg=1 tab, PO, Q12H, # 60 tab, 0 Refill(s) Active 12/11/2016 [facility] Sodium Chloride 0.154 MEQ/ML Inhalant Solution See Instructions, PRN Congestion, 2 sprays, 0 Refill(s) No Longer Active 12/11/2016 [facility] Insulin, Aspart, Human 4 unit, 0.04 mL, Route: SUB-Q, Drug form: SOLN, Bedtime, Dosing Weight 57.7, kg, PRN Blood Glucose Results, Start date: 12/10/16 23:32:00 CDT, Duration: 30 day, Stop date: 01/09/17 23:31:00 CDTNotes: Roll in palms of hands gently; Do not shake vigorously. (Same as: NovoLOG) "single patient use only" WASTE: F/P - Black; E - [employer] Trash Bin Stable for 28 days at room temperature. Expires in days from Date No Longer Active 12/11/2016 [facility] Dextrose 50% Syringe 12.5 gm, 25 mL, Route: IVP, Drug Form: INJ, Dosing Weight 57.7, kg, PRN, PRN Blood Glucose Results, Start date: 12/10/16 23:32:00 CDT, Duration: 30 day, Stop date: 01/09/17 23:31:00 CDT No Longer Active 12/11/2016 [facility] Glucagon 1 mg, Route: IM, Drug form: PDR/INJ, PRN, Dosing Weight 57.7, kg, PRN Blood Glucose Results, Start date: 12/10/16 23:32:00 CDT, Duration: 30 day, Stop date: 01/09/17 23:31:00 CDT No Longer Active 12/11/2016 [facility] Procrit 7,500 unit, 0.75 mL, Route: SUB-Q, Drug form: INJ, After Dialysis, Dosing Weight 72.727, kg, PRN Dialysis, Start date: 12/10/16 23:18:00 CDT, Duration: 30 day, Stop date: 01/09/17 23:17:00 CDTNotes: (Same as: Procrit) epoetin jay 88515 unit/1 ml VL. For dialysis use only. (Procrit) WASTE: F/P - Red; E -Red MEDICATION WASTE Product Size: 53997 unit Product Wasted: ___ unit No Longer Active 12/11/2016 [facility] Saline Flush 0.9% 10 ml, Route: IVP, Drug Form: INJ, Dosing Weight 72.727, kg, PRN, PRN Line Flush, Start date: 12/10/16 23:11:00 CDT, Duration: 30 day, Stop date: 01/09/17 23:10:00 CDTNotes: (Same as: BD Posiflush) No Longer Active 12/11/2016 [facility] Nystatin 100 UNT/MG Topical Powder 1 appl, Route: TOP, PRN, Drug form: PWDR, PRN For Fungal Prophylaxis, Start date: 12/10/16 23:11:00 CDT, Duration: 30 day, Stop date: 01/09/17 23:10:00 CDTNotes: (Same as:Mycostatin, Nilstat) For external use only. No Longer Active 12/11/2016 [facility] Allergies, Adverse Reactions, Alerts No Known [...] Moderate *ABN* (01/05/18 12:25 AM) Negative 01/05/2018 [facility] URINE AND STOOL UA Bili Negative *NA* (01/05/18 12:25 AM) Negative 01/05/2018 [facility] URINE AND STOOL UA Nitrite Positive *ABN* (01/05/18 12:25 AM) Negative 01/05/2018 [facility] URINE AND STOOL UA Protein Negative mg/dL Negative mg/dL 01/05/2018 [facility] URINE AND STOOL UA pH 5.0 5.0 - 8.0 01/05/2018 [facility] URINE AND STOOL UA Ketones Negative mg/dL Negative mg/dL 01/05/2018 [facility] URINE AND STOOL UA Glucose Negative mg/dL Negative mg/dL 01/05/2018 [facility] URINE AND STOOL UA Color Yellow *NA* (01/05/18 12:25 AM) Yellow 01/05/2018 [facility] URINE AND STOOL UA Spec Grav 1.020 <=1.030 01/05/2018 [facility] URINE AND STOOL UA Turbidity Marked *ABN* (01/05/18 12:25 AM) Clear 01/05/2018 [facility] CARDIAC ENZYMES CK MB <1.0 0.5 - 3.6 01/05/2018 [facility] CARDIAC ENZYMES Troponin-I <0.02 0.00 - 0.40 01/05/2018 [facility] CARDIAC ENZYMES Total CK 105 12 - 191 01/05/2018 [facility] CARDIAC ENZYMES CK MB Index <1.0 0.0 - 2.5 01/05/2018 [facility] CHEM PANEL eGFR 75 01/05/2018 Result [...] should be multiplied by the estimated BMI. [facility] CHEM PANEL Albumin Lvl 3.5 3.5 - 5.0 01/05/2018 [facility] CHEM PANEL Calcium Lvl 8.8 8.5 - 10.5 01/05/2018 [facility] CHEM PANEL Chloride Lvl 106 95 - 109 01/05/2018 [facility] CHEM PANEL CO2 27 24 - 32 01/05/2018 [facility] CHEM PANEL Sodium Lvl 138 135 - 145 01/05/2018 [facility] CHEM PANEL Potassium Lvl 3.6 3.5 - 5.1 01/05/2018 [facility] CHEM PANEL BUN 17 7 - 22 01/05/2018 [facility] CHEM PANEL Creatinine Lvl 0.90 0.50 - 1.40 01/05/2018 [facility] CHEM PANEL B/C Ratio 19 6 - 25 01/05/2018 [facility] CHEM PANEL Bili Total 0.4 0.2 - 1.3 01/05/2018 [facility] CHEM PANEL Globulin 4.4 2.7 - 4.2 01/05/2018 [facility] CHEM PANEL AGAP 8.6 10.0 - 20.0 01/05/2018 [facility] CHEM PANEL A/G Ratio 0.8 0.7 - 1.6 01/05/2018 [facility] CHEM PANEL Glucose Lvl 77 70 - 99 01/05/2018 [facility] CHEM PANEL Total Protein 7.9 6.4 - 8.4 01/05/2018 [facility] CHEM PANEL AST 35 0 - 37 01/05/2018 [facility] CHEM PANEL Alk Phos 51 39 - 136 01/05/2018 [facility] CHEM PANEL ALT 52 0 - 65 01/05/2018 [facility] PTT 30.0 22.9 - 35.8 01/05/2018 [facility] PT 12.5 12.0 - 14.7 01/05/2018 [facility] [place] INR 0.93 0.85 - 1.17 01/05/2018 [facility] [place] MCHC 34.4 32.0 - 36.0 01/05/2018 [facility] [place] MPV 9.1 7.4 - 10.4 01/05/2018 [facility] [place] MCH 31.8 27.0 - 31.0 01/05/2018 [facility] [place] Platelet 306 133 - 450 01/05/2018 [facility] RDW 13.9 11.5 - 14.5 01/05/2018 [facility] [place] MCV 92.3 80.0 - 98.0 01/05/2018 [facility] [place] Hct 39.1 36.0 - 48.0 01/05/2018 [facility] [place] WBC 10.1 3.7 - 10.4 01/05/2018 [facility] [place] Hgb 13.4 12.0 - 16.0 01/05/2018 [facility] [place] RBC 4.23 4.20 - 5.40 01/05/2018 [facility] [place] Segs-Bands # 3.3 1.5 - 8.1 01/05/2018 [facility] [place] Monocytes 12.0 2.0 - 12.0 01/05/2018 [facility] [place] Segs 32.3 45.0 - 75.0 01/05/2018 [facility] [place] Lymphocytes 50.4 20.0 - 40.0 01/05/2018 [facility] [place] Monocytes # 1.2 0.0 - 0.8 01/05/2018 [facility] HEMATOLOGY Eosinophils 4.9 0.0 - 4.0 01/05/2018 [facility] HEMATOLOGY Eosinophils # 0.5 0.0 - 0.5 01/05/2018 [facility] HEMATOLOGY Basophils 0.4 0.0 - 1.0 01/05/2018 [facility] [place] Lymphocytes # 5.1 1.0 - 5.5 01/05/2018 [facility] CHEM PANEL eGFR 10 12/11/2016 Result [...] should be multiplied by the estimated BMI. [facility] CHEM PANEL Chloride Lvl 100 95 - 109 12/11/2016 [facility] CHEM PANEL Sodium Lvl 138 135 - 145 12/11/2016 [facility] CHEM PANEL Potassium Lvl 3.6 3.5 - 5.1 12/11/2016 [facility] CHEM PANEL BUN 33 7 - 22 12/11/2016 [facility] CHEM PANEL Creatinine Lvl 4.83 0.50 - 1.40 12/11/2016 [facility] CHEM PANEL Calcium Lvl 8.0 8.5 - 10.5 12/11/2016 [facility] CHEM PANEL CO2 27 24 - 32 12/11/2016 [facility] CHEM PANEL AGAP 14.6 10.0 - 20.0 12/11/2016 [facility] CHEM PANEL Glucose Lvl 71 70 - 99 12/11/2016 [facility] HEMATOLOGY Basophils 0.6 0.0 - 1.0 12/11/2016 [facility] HEMATOLOGY Eosinophils 1.7 0.0 - 4.0 12/11/2016 [facility] HEMATOLOGY Monocytes 7.5 2.0 - 12.0 12/11/2016 [facility] HEMATOLOGY Lymphocytes 7.5 20.0 - 40.0 12/11/2016 [facility] HEMATOLOGY Eosinophils # 0.1 0.0 - 0.5 12/11/2016 [facility] HEMATOLOGY Monocytes # 0.5 0.0 - 0.8 12/11/2016 [facility] HEMATOLOGY Lymphocytes # 0.5 1.0 - 5.5 12/11/2016 [facility] HEMATOLOGY Segs 82.7 45.0 - 75.0 12/11/2016 [facility] HEMATOLOGY Segs-Bands # 5.8 1.5 - 8.1 12/11/2016 [facility] Hgb 9.2 12.0 - 16.0 12/11/2016 [facility] HEMATOLOGY MCV 85.5 80.0 - 98.0 12/11/2016 [facility] MCH 28.9 27.0 - 31.0 12/11/2016 [facility] MCHC 33.8 32.0 - 36.0 12/11/2016 [facility] HEMATOLOGY Hct 27.4 36.0 - 48.0 12/11/2016 [facility] MPV 7.1 7.4 - 10.4 12/11/2016 [facility] Platelet 203 133 - 450 12/11/2016 [facility] RDW 14.5 11.5 - 14.5 12/11/2016 [facility] RBC 3.20 4.20 - 5.40 12/11/2016 [facility] WBC 7.0 3.7 - 10.4 12/11/2016 [facility] CHEM PANEL eGFR 3 12/11/2016 Result [...] should be multiplied by the estimated BMI. [facility] CHEM PANEL CO2 21 24 - 32 12/11/2016 [facility] CHEM PANEL Chloride Lvl 99 95 - 109 12/11/2016 [facility] CHEM PANEL AGAP 25.7 10.0 - 20.0 12/11/2016 [facility] CHEM PANEL Calcium Lvl 7.7 8.5 - 10.5 12/11/2016 [facility] CHEM PANEL Sodium Lvl 139 135 - 145 12/11/2016 [facility] CHEM PANEL Potassium Lvl 6.7 3.5 - 5.1 12/11/2016 Result Comment: Critical Result(s) called to Debra Lindquist RN at 12/11/2016 00:09 by RA. Read back OK. [facility] CHEM PANEL Glucose Lvl 84 70 - 99 12/11/2016 [facility] CHEM PANEL BUN 114 7 - 22 12/11/2016 [facility] CHEM PANEL Creatinine Lvl 12.40 0.50 - 1.40 12/11/2016 [facility] HEMATOLOGY Platelet 223 133 - 450 12/11/2016 [facility] MPV 7.4 7.4 - 10.4 12/11/2016 [facility] RDW 14.6 11.5 - 14.5 12/11/2016 [facility] MCHC 33.4 32.0 - 36.0 12/11/2016 [facility] MCH 28.9 27.0 - 31.0 12/11/2016 [facility] HEMATOLOGY MCV 86.4 80.0 - 98.0 12/11/2016 [facility] Hct 27.2 36.0 - 48.0 12/11/2016 [facility] HEMATOLOGY WBC 8.6 3.7 - 10.4 12/11/2016 [facility] Hgb 9.1 12.0 - 16.0 12/11/2016 [facility] RBC 3.15 4.20 - 5.40 12/11/2016 [facility] HEMATOLOGY Basophils 0.4 0.0 - 1.0 12/11/2016 [facility] HEMATOLOGY Segs-Bands # 7.6 1.5 - 8.1 12/11/2016 [facility] HEMATOLOGY Monocytes 5.9 2.0 - 12.0 12/11/2016 [facility] HEMATOLOGY Lymphocytes 4.2 20.0 - 40.0 12/11/2016 [facility] HEMATOLOGY Segs 89.1 45.0 - 75.0 12/11/2016 [facility] HEMATOLOGY Eosinophils 0.4 0.0 - 4.0 12/11/2016 [facility] Lymphocytes # 0.4 1.0 - 5.5 12/11/2016 [facility] Monocytes # 0.5 0.0 - 0.8 12/11/2016 [facility] Anisocyte 1+ *ABN* (12/10/16 11:20 PM) None Seen 12/11/2016 [facility] HEMATOLOGY Plt Morph Normal (12/10/16 11:20 PM) 12/11/2016 [facility] IMMUNOLOGY Hep Bs Ab <3.1 <=7.4 mIU/mL 12/11/2016 [facility] IMMUNOLOGY Hep Bs Ag Negative *NA* (12/10/16 11:20 PM) Negative 12/11/2016 [facility] SPECIAL CHEMISTRY Hgb A1C 4.8 <=5.6 % 12/11/2016 [facility] Pathology Reports No Data Provided for [...] right lower extremity DVT SL: WR4-M 01/04/2018 [facility] Spine cervical wo contrast CT CT [...] of the cervical spine. SL: SGKERRYRI-[place] 01/04/2018 [facility] 1view DX Clinical Indication: - right hand numbness; Comparison: 12/10/2016 FINDINGS: AP chest radiographs shows normal lung volumes without interstitial or airspace opacities, pleural effusions or pneumothorax. The heart size and pulmonary vasculature are normal. The trachea is midline. There are no clinically significant osseous abnormalities noted. IMPRESSION: No chest radiographic evidence of acute cardiopulmonary disease. SL: WR4-M 01/04/2018 [facility] 1view DX Clinical Indication: Shortness of [...] present in satisfactory locations. SL: 82 12/10/2016 [facility] Consultation Notes No Data Provided for This Section Discharge Summaries No Data Provided for This Section History and Physicals No Data Provided for This Section Vital Signs Vital Sign Value Date Comments Source Systolic (mm Hg) 118 01/05/2018 [facility] Diastolic (mm Hg) 76 01/05/2018 [facility] Respitory Rate 16 01/05/2018 [facility] Temperature Oral (F) 98 F 01/05/2018 [facility] Heart Rate 86 01/05/2018 [facility] Heart Rate 83 01/04/2018 [facility] Respitory Rate 18 01/04/2018 [facility] Systolic (mm Hg) 127 01/04/2018 [facility] Diastolic (mm Hg) 87 01/04/2018 [facility] Temperature Oral (F) 98.7 F 01/04/2018 [facility] Systolic (mm Hg) 129 12/11/2016 [facility] Diastolic (mm Hg) 79 12/11/2016 [facility] Respitory Rate 20 12/11/2016 [facility] Systolic (mm Hg) 144 12/11/2016 [facility] Diastolic (mm Hg) 83 12/11/2016 [facility] Respitory Rate 25 12/11/2016 [facility] Systolic (mm Hg) 135 12/11/2016 [facility] Diastolic (mm Hg) 76 12/11/2016 [facility] Respitory Rate 20 12/11/2016 [facility] BMI Calculated 25.69 12/11/2016 [facility] Height 149.86 cm 12/11/2016 [facility] Weight 57.7 12/11/2016 [facility] Height 149.86 cm 12/11/2016 [facility] Weight 57.007 12/11/2016 [facility] BMI Calculated 25.38 12/11/2016 [facility] Encounters Location Location Details Encounter Type Encounter Number Reason For Visit Attending Provider ADM Date DC Date Status Source OD [id number] [id number] - OBESITY JUDY PONCE 02/24/2012 [id number] Osmund Agbo 12/11/2016 12/11/2016 [facility] Emergency [id number] Tim Pham 01/04/2018 01/05/2018 [facility] Procedures Procedure Code Date Perfomer Comments Source Hysterectomy [id number] 12/08/2014 [facility] section [id number] [facility] Tracheostomy [id number] [facility] Assessment and Plan Assessment and Plan [...] Hemodialysis CONSULTANTS: Attending: Eusebio Valiente MD.....Office: .....MSO: [id number] Status: Inpatient Code Status: None Specified=FULL CODE [...] Working DRG: MISC DISORDERS OF NUTRITION,METABOLISM,FLUIDS/ELECTROLYTES W/O LONG-TERM Diet: Diet Renal 80,2,2,1(pro,sod,pot,phos) PCP: PCP, Maria Isabel BOURGEOIS.....Office: (not on file).....MSO: [id number] Consulting Physicians: Chandler Wooten MD Office: MSO: [...] MD Date: 12/10/16 Impression and Plan 12/11/2016 [facility] Plan of Care No Data Provided for This Section Social History Social History Date Source Social History TypeResponse Smoking Status Never smoker; Type: Cigarettes; Previous treatment: None; Ready to change: No; Concerns about tobacco use in household: No; Exposure to Tobacco Smoke None; Cigarette Smoking Last 365 Days No; Reg Smoking Cessation Counseling No entered on: 01/04/18 01/05/2018 [facility] Social History TypeResponse Smoking Status Never smoker; Exposure to Tobacco Smoke None; Cigarette Smoking Last 365 Days No; Reg Smoking Cessation Counseling No 12/11/2016 [facility] Family History No Data Provided for This Section Advance Directives No Data Provided for This Section Functional Status No Data Provided for This Section
[2019-05-02] MEDS: SODIUM CHLORIDE 0.9% 1000ML 1,000 ML IV SCH (21:56)
[2019-05-02] MEDS: HYDROMORPHONE 1MG/1ML INJ IV PRN (21:56)
[2019-05-02] MEDS: CEFTRIAXONE SOD 1 GM/NS 50 ML 50 ML IV SCH (21:56)
[2019-05-03] VITALS (9 sets, daily range): BP systolic 87–138; BP diastolic 44–75
--- NOTE | 2019-05-03 00:55 | NUR ---
PATIENT ARRIVED IN THE UNIT FROM THE E.R. VIA STRETCHER. CONVERSANT AND ORIENTED. ASSISTED TO TRANSFER IN BED. IV TO RIGHT AC 20 GAUGE PATENT AND INFUSING WELL WITH NS AT 125ML/HR. ORIENTED TO ROOM. CALL LIGHT WITHIN REACHED.
[2019-05-03] MEDS: SODIUM CHLORIDE 0.9% 1000ML 1,000 ML IV SCH ×2 (05:08→15:02)
[2019-05-03 06:40] LABS: BASOPHILS # (AUTO) 0.1 (0.0-0.1); BASOPHILS % 0.8 % (0.0-1.0); EOSINOPHILS # (AUTO) 0.4 (0.0-0.4); EOSINOPHILS % 5.5 % (0.0-6.0); HEMATOCRIT 36.8 % (34.2-44.1); HEMOGLOBIN 12.2 g/dL (12.0-16.0); LYMPHOCYTES # (AUTO) 3.2 (1.0-3.2); LYMPHOCYTES % 49.8 % (18.0-39.1); MEAN CORPUSCULAR HEMOGLOBIN 31.6 pg (28-32); MEAN CORPUSCULAR HGB CONC 33.2 g/dL (31-35); MEAN CORPUSCULAR VOLUME 95.3 fL (81-99); MONOCYTES # (AUTO) 1.2 (0.2-0.8); MONOCYTES % 17.8 % (4.4-11.3); NEUTROPHILS # (AUTO) 1.7 (2.1-6.9); NEUTROPHILS % 25.9 % (38.7-80.0); PLATELET COUNT 264 x10e3/uL (140-360); RED BLOOD COUNT 3.86 x10e6/uL (3.6-5.1); RED CELL DISTRIBUTION WIDTH 12.6 % (11.7-14.4)
[2019-05-03 06:57] LABS: ANION GAP 12.2 mmol/L (8-16); BLOOD UREA NITROGEN 16 mg/dL (7-26); BUN/CREATININE RATIO 18 (6-25); CALCIUM 8.5 mg/dL (8.4-10.2); CARBON DIOXIDE 25 mmol/L (22-29); CHLORIDE 106 mmol/L (98-107); CREATININE, SERUM 0.88 mg/dL (0.57-1.11); EST GLOMERULAR FILTRATION RATE > 60 ML/MIN (60-); GLUCOSE 79 mg/dL (74-118); POTASSIUM 4.2 mmol/L (3.5-5.1); SODIUM 139 mmol/L (136-145)
[2019-05-03] MEDS: ONDANSETRON HCL INJ 2MG/ML 2ML 2 MG/ML VIAL IV PRN (09:01)
[2019-05-03] MEDS: HYDROMORPHONE 1MG/1ML INJ IV PRN (09:13)
[2019-05-03] MEDS ORDERED: DOCUSATE SODIUM 100 MG CAP PO PRN (11:15)
[2019-05-03] MEDS: ACETAMINOPHEN 325 MG TAB PO PRN ×2 (13:29→23:05)
--- NOTE | 2019-05-03 13:55 | NUR ---
Visit made by the Spiritual Care Department Pastoral Visitor, Ciarra Mazariegos. PV provided pastoral presence, prayer, hospitality, and supportive listening. Pastoral Visitor informed pt/family of the scope of [employer] and availability. EDMUND MANE Crm Coordinator Spiritual Care Department O: [phone] Pager: [phone] ([phone] number calling from)
[2019-05-03] MEDS: PENTOXIFYLLINE 400 MG TAB CR PO SCH (17:00)
--- NOTE | 2019-05-03 17:20 | History and Physical ---
PRESENTING COMPLAINING: Lower abdominal pain with gross hematuria for one day. HISTORY OF PRESENT ILLNESS: A 49-year-old female was admitted from the ER. The patient came to the ER yesterday evening from work for sudden onset of ann marie hematuria with lower abdominal pain. The patient tells that she was discharged from this hospital more than a week ago after placement of a ureteric stent on the right-sided ureter for hydronephrosis by Dr. Chris Olmos, urologist. The patient was reasonably well since then. Yesterday, she went to work. At that time, she suddenly started lower abdominal pain. She noticed gross hematuria along with her urination. She felt mild nausea. Denied any vomiting. She also denied any fever. The patient was brought to the ER from her work. She also denied any chest pain, shortness of breath, palpitation, or dizziness. The patient is now lying in bed without any distress. She is still having hematuria this morning. She has a photograph of her urine since yesterday, which shows red urine still persisting this morning. REVIEW OF SYSTEMS: CONSTITUTIONAL: No fevers, chills, rigor. EYE, ENT: No nasal congestion. No sore throat. No earache. CARDIOVASCULAR: No chest pain, shortness of breath, or palpitation. PULMONARY: No cough. No hemoptysis. GI: Lower abdominal pain as per HPI. No vomiting. Mild nausea. No episode of bloody stool or black stools and no diarrhea. : Gross hematuria since yesterday as per HPI. No dysuria. No vaginal bleeding. MUSCULOSKELETAL/SKIN/LYMPHORETICULAR: No joint pain. No joint swelling. No skin rash. No swollen glands. NEUROLOGICAL: No loss of consciousness. There are headaches. HISTORY OF PAST MEDICAL ILLNESS: GERD, gastritis, hypothyroidism, nephrolithiasis with right hydronephrosis status post ureteric stone more than a week ago at this hospital and pretty well. No history of CAD. HISTORY OF PAST SURGERIES: Tubal ligation, ventral herniorrhaphy in the past and right ureteric stenting more than one week ago at this hospital. No other history of surgery. ALLERGIES: NO KNOWN MEDICATION ALLERGY. HOME MEDICATIONS: As per med reconciliation sheet. SOCIAL HISTORY: The patient lives at home with her family. She has grown-up children. 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 HABITS: Denies smoking, drinking, or substance abuse history. SKIN THERAPIST HISTORY: The patient is status post tubal ligation. Her menstruation is regular monthly. Last menstrual period last month. FAMILY HISTORY: The patient's father is . He had CAD, intracranial aneurysm and prostate cancer patient. Mother is alive. She has a fatty liver. One of her brother of alcoholic liver disease as per the patient's statement. No family history of nephrolithiasis. PHYSICAL EXAMINATION: VITAL SIGNS: BP 132/60 at presentation, now 116/72, pulse 62 to 80, temperature 95.7, T-max 96.8, respiration 18 to 20, and SpO2 97% at room air. GENERAL: Alert, lying in bed without any distress now. HEENT: NC/AT. No pallor. No icterus. Oral mucosa moist. NECK: No JVD. No carotid bruit. No lymphadenopathy. No thyromegaly. HEART: S1 and S2. Regular. No murmurs. LUNGS: Clear to auscultation. ABDOMEN: Mild tenderness in lower abdomen. No rebound tenderness. No palpable masses. Bowel sounds active in all quadrants. No flank tenderness. EXTREMITIES: No edema, cyanosis, or clubbing. NEUROLOGICAL: Motor grossly equal on both sides. LABORATORY DATA: CBC; WBC 9.40, hemoglobin 13.2, hematocrit 39, today 12 and 36, platelet 310, neutrophils 38, and lymphocytes 45. Chemistry panel; sodium 139, potassium 3.9, chloride 102, CO2 25, anion gap 12, BUN 16, creatinine 1.13, this morning 0.88, glucose 94, calcium 9.6, total bilirubin 0.3, AST 35, ALT 38, alkaline phosphatase 52, total protein 7.5, albumin 3.9, globulin 3.6. Urinalysis negative for glucose, protein 2+, nitrite positive, leukocyte esterase trace, wbc 0-5, rbc 11-20. MICROBIOLOGY DATA: Urine culture in progress. RADIOLOGICAL DATA: X-ray abdomen, single view, proximal loop of the right ureteral stent may be in the proximal right ureter. No dilated bowel loops. Bowel gas pattern is unremarkable. EKG none done. ASSESSMENT AND PLAN: 1. Gross hematuria, status post right ureteric stenting. Urology consult is requested, Dr. Olmos. He planned for cystoscopy tomorrow. Continue the patient on IV fluids. The patient's hemoglobin did not have any drop. Monitor for now. Continue hydration and pain control. 2. Nephrolithiasis. X-ray and KUB did not show any new kidney stone, follow with urologist. 3. Trace leukocyte esterase in urinalysis. The patient is on ceftriaxone. Continue ceftriaxone and follow urine culture report. 4. Gastroesophageal reflux disease, gastritis. Continue the patient on regular medication. 5. Hypothyroidism. Continue regular medication. 6. Deep venous thrombosis prophylaxis. Hold anticoagulation in view of hematuria. Encourage ambulation. 7. Discharge plan. The patient will be discharged when cleared by the urologist. MD FANTA Harkins/WAN /[id number]
--- NOTE | 2019-05-03 19:24 | NUR ---
called and clarified with dr Olmos about whether patient is having a procedure tomorrow morning, the MD stated to make patient NPO after midnight and no need to consent her because everything is done in day surgery dept.
[2019-05-03] MEDS: CEFTRIAXONE SOD 1 GM/NS 50 ML 50 ML IV SCH (23:01)
[2019-05-04] VITALS (7 sets, daily range): BP systolic 115–129; BP diastolic 56–76
--- NOTE | 2019-05-04 01:30 | NUR ---
Report received from night nurse, Bartolome. Pt resting quietly with eyes closed. No acute distress noted. Call shah within reach. Will continue to monitor.
--- NOTE | 2019-05-04 01:32 | NUR ---
reports given to Zaynab watkins to continue cares.
[2019-05-04] MEDS: SODIUM CHLORIDE 0.9% 1000ML 1,000 ML IV SCH ×4 (01:55→20:27)
[2019-05-04 05:25] LABS: BASOPHILS % 0.7 % (0.0-1.0); EOSINOPHILS # (AUTO) 0.4 (0.0-0.4); HEMATOCRIT 35.9 % (34.2-44.1); HEMOGLOBIN 12.3 g/dL (12.0-16.0); LYMPHOCYTES % 50.3 % (18.0-39.1); MEAN CORPUSCULAR HEMOGLOBIN 32.2 pg (28-32); MEAN CORPUSCULAR HGB CONC 34.3 g/dL (31-35); MONOCYTES # (AUTO) 1.1 (0.2-0.8); MONOCYTES % 19.4 % (4.4-11.3); NEUTROPHILS # (AUTO) 1.4 (2.1-6.9); NEUTROPHILS % 23.3 % (38.7-80.0); PLATELET COUNT 232 x10e3/uL (140-360); RED BLOOD COUNT 3.82 x10e6/uL (3.6-5.1); RED CELL DISTRIBUTION WIDTH 12.5 % (11.7-14.4)
[2019-05-04] MEDS: LEVOTHYROXINE SODIUM 100 MCG TAB PO SCH (06:00)
[2019-05-04 06:05] LABS: ALANINE AMINOTRANSFERASE 31 IU/L (0-55); ALBUMIN 2.8 g/dL (3.5-5.0); ALKALINE PHOSPHATASE 39 IU/L (40-150); ANION GAP 11.4 mmol/L (8-16); BLOOD UREA NITROGEN 13 mg/dL (7-26); BUN/CREATININE RATIO 15 (6-25); CALCIUM 8.3 mg/dL (8.4-10.2); CARBON DIOXIDE 22 mmol/L (22-29); CHLORIDE 107 mmol/L (98-107); CREATININE, SERUM 0.84 mg/dL (0.57-1.11); EST GLOMERULAR FILTRATION RATE > 60 ML/MIN (60-); GLUCOSE 97 mg/dL (74-118); MAGNESIUM 1.8 MG/DL (1.3-2.1); PHOSPHORUS 2.7 MG/DL (2.3-4.7); POTASSIUM 4.4 mmol/L (3.5-5.1); SODIUM 136 mmol/L (136-145)
[2019-05-04 06:06] LABS: THYROID STIMULATING HORMONE 0.956 uIU/mL (0.350-4.940)
[2019-05-04] MEDS ORDERED: IOPAMIDOL 610MG/1ML 300 MG/ML VIAL IV ONE (06:10)
--- NOTE | 2019-05-04 06:10 | NUR ---
Taken to pre-op by tech via stretcher. No acute distress noted. Emotional support given.
--- NOTE | 2019-05-04 07:10 | NUR ---
Report given to morning nurse.
[2019-05-04] MEDS: PANTOPRAZOLE SOD 40 MG TABEC PO SCH (09:14)
[2019-05-04] MEDS: PENTOXIFYLLINE 400 MG TAB CR PO SCH ×2 (09:14→16:39)
[2019-05-04 09:15] LABS: INR 0.84
[2019-05-04] MEDS ORDERED: FENTANYL CITRATE/PF 100MCG/2 ML INJ ONE ×2 (12:01→17:51)
[2019-05-04] MEDS: HYDROMORPHONE 1MG/1ML INJ IV PRN ×3 (12:30→20:13)
[2019-05-04] MEDS: ONDANSETRON HCL INJ 2MG/ML 2ML 2 MG/ML VIAL IV PRN ×3 (12:30→20:13)
--- NOTE | 2019-05-04 12:50 | Operative Report ---
DATE OF PROCEDURE: 05/04/2019 SURGEON: Chris Olmos MD PREOPERATIVE DIAGNOSES: 1. Indwelling right ureteral stent. 2. Right ureteral calculus. 3. Right hydronephrosis. POSTOPERATIVE DIAGNOSES: 1. Indwelling right ureteral stent. 2. Right ureteral calculus. 3. Right hydronephrosis. PROCEDURES: 1. Cystourethroscopy with complicated removal of right indwelling stent (entirely separate procedure complicated secondary to right impacted stone). 2. Right-sided ureteroscopy with laser lithotripsy (entirely separate procedure to debulk a large impacted right ureteral calculi). 3. Right-sided ureteroscopy with stone extraction (entirely separate procedure with explicit purpose of sending stones for analysis, not required for laser lithotripsy). 4. Cystourethroscopy with insertion of a right indwelling stent (entirely separate procedure for diagnosis of right hydronephrosis). 5. Supervision of fluoroscopy. 6. Interpretation of retrograde pyelography. ANESTHESIA: General. ESTIMATED BLOOD LOSS: Minimal. COMPLICATIONS: None. INDICATIONS FOR PROCEDURE: Mrs. Dacosta is a very pleasant 49-year-old female patient with impacted right ureteral calculi, presenting for definitive management. PROCEDURE IN DETAIL: After informed consent was obtained, the patient was taken to the operative suite, placed supine on the operating table, underwent general anesthesia by Anesthesia Service. The patient has been on culture specific antibiotics, placed in dorsal lithotomy position, sterilely prepped and draped in standard fashion for cystoscopy. After time-out was taken, a 21-Armenian cystoscope was inserted per urethra. Normal urethra was noted. Panendoscopy of the bladder revealed no tumors. Stent was seen extruding from right ureteral orifice, grasped and removed. A guidewire was inserted alongside the stent. Stent was removed with moderate difficulty secondary to impacted stone. Ureteroscope was advanced to the level of stone. Utilizing a 365 micron laser fiber, the stone was obliterated in multiple small fragments. Several of which were basket extracted and passed off the table as specimens. Postoperative radiographs were taken to show before and after no other stones seen. A 7 x 24 ureteral stent was deployed with a coil in the renal pelvis and coil in the bladder. String was tied at the level of meatus. The bladder was drained. The patient was awakened from anesthesia and transported to recovery room in excellent condition. Supervision of fluoroscopy: I was present for the entire procedure and supervised fluoroscopy for stent extraction as well as ureteroscopy portions. MD JORGE Mcelroy/WAN /[id number]
[2019-05-04] MEDS ORDERED: MIDAZOLAM HCL 2 MG/2 ML VIAL ONE (17:51)
[2019-05-04] MEDS ORDERED: ONDANSETRON HCL INJ 2MG/ML 2ML 2 MG/ML VIAL ONE (18:29)
[2019-05-04] MEDS ORDERED: PROPOFOL IV EMULSION 10 MG/ML 20 ML VIAL ONE (18:29)
[2019-05-04] MEDS ORDERED: LIDOCAINE HCL 2% LOCAL INJ 5 ML SDV VIAL INJ ONE (18:29)
[2019-05-04] MEDS ORDERED: SEVOFLURANE INHAL SOLN 250 ML PEN BTL ONE (18:29)
[2019-05-04] MEDS ORDERED: DEXAMETHASONE SOD PHOS INJ 4 MG/ML VIAL ONE (18:29)
[2019-05-04] MEDS: CEFTRIAXONE SOD 1 GM/NS 50 ML 50 ML IV SCH (20:21)
[2019-05-04] MEDS ORDERED: TAMSULOSIN HCL 0.4 MG CAP PO SCH (21:00)
[2019-05-05] MEDS: HYDROMORPHONE 1MG/1ML INJ IV PRN (04:20)
[2019-05-05 04:27] VITALS: BP 106/58
[2019-05-05 05:47] LABS: ALANINE AMINOTRANSFERASE 27 IU/L (0-55); ALBUMIN 2.8 g/dL (3.5-5.0); ALBUMIN/GLOBULIN RATIO 0.9 (0.8-2.0); ALKALINE PHOSPHATASE 41 IU/L (40-150); ANION GAP 13.1 mmol/L (8-16); BLOOD UREA NITROGEN 9 mg/dL (7-26); BUN/CREATININE RATIO 11 (6-25); CALCIUM 8.7 mg/dL (8.4-10.2); CARBON DIOXIDE 24 mmol/L (22-29); CHLORIDE 105 mmol/L (98-107); CREATININE, SERUM 0.81 mg/dL (0.57-1.11); EST GLOMERULAR FILTRATION RATE > 60 ML/MIN (60-); GLUCOSE 118 mg/dL (74-118); LIPASE 22 U/L (8-78); POTASSIUM 4.1 mmol/L (3.5-5.1); SODIUM 138 mmol/L (136-145)
[2019-05-05] MEDS: LEVOTHYROXINE SODIUM 100 MCG TAB PO SCH (05:54)
[2019-05-05 07:00] VITALS: BP 106/65
[2019-05-05] MEDS: PANTOPRAZOLE SOD 40 MG TABEC PO SCH (08:05)
[2019-05-05] MEDS: PENTOXIFYLLINE 400 MG TAB CR PO SCH (08:05)
--- NOTE | 2019-05-05 09:58 | NUR ---
pt discharged home. all instructions given to her. she states to be upset due to miscommunications from md, reported this to nurse shed workers supervisor.
--- NOTE | 2019-05-06 17:59 | Discharge Summary ---
CONSULTATION BY: Dr. Chris Olmos, urologist. PROCEDURE: Cystoscopy with lithotripsy for a right ureteric stone and replacement of right ureteric stent by Dr. Olmos on 05/04/2019. FINAL DIAGNOSIS: Gross hematuria. OTHER DIAGNOSES: 1. Right ureteric stent dislodgement, status post repeat cystoscopy and replacement during this hospitalization. 2. Right ureteric stone, status post lithotripsy. 3. Gastroesophageal reflux disease, gastritis by history. 4. Hypothyroidism by history. 5. Coronary artery disease by history. BRIEF HOSPITAL COURSE: A 49-year-old female was admitted from ER. The patient had a right ureteric stone with hydronephrosis for which she was hospitalized and Dr. Chris Olmos had a cystoscopy and ureteric stent placement. The patient was discharged home. She restarted gross hematuria with intractable pain for which she came to the ER. X-ray KUB did not show any new stone. The patient was continued on IV fluid and IV antibiotics. Dr. Olmos was consulted. He scheduled her for repeat cystoscopy and lithotripsy if needed. The patient had a repeat cystoscopy by Dr. Olmos on 05/04/2019. He found the previous stent was moved downwards, which was removed. She had a lithotripsy and placement of a ureteric stone. The patient tolerated the procedure well. She was complaining of pain and hematuria after the procedure. The patient was kept for observation. Her hematuria resolved. Her pain also got controlled. The patient did not show any sign of infection. She was cleared by urologist for discharge. The patient was discharged home with instructions for followup with urologist and her PCP, Dr. Jerrell Howe. The patient was hemodynamically stable at discharge. PHYSICAL EXAMINATION: VITAL SIGNS: BP 106/65, pulse 99, temperature 98.3, respirations 20, and SpO2 100% at room air. GENERAL: Alert, not in acute distress. HEENT: NC/AT. No pallor. No icterus. NECK: No JVD. No carotid bruit. HEART: S1 and S2. Regular. No murmur. LUNGS: Air entry equal on both sides. No crackles. No rhonchi. ABDOMEN: Soft and nontender. No palpable mass. EXTREMITIES: No edema, cyanosis, or clubbing. NEUROLOGICAL: Motor grossly equal on both sides. LABORATORY DATA: CBC; WBC 5.89, hemoglobin 12, hematocrit 35, platelet 232, MCV 94, RDW 12, neutrophils 50, and lymphocytes 19. PT 12 and INR 0.84. Chemistry panel; sodium 138, potassium 4.1, chloride 105, CO2 24, BUN 9, creatinine 0.81, anion gap 9, and glucose 118. Calcium 8.7, phosphorus 2.7, and magnesium 1.8. Total bilirubin 0.1, AST 19, ALT 27, and alkaline phosphatase 41. Total protein 6.0, albumin 2.8, and globulin 3.2. Lipase 22. TSH 0.95. Urinalysis at presentation; protein 2+, negative for glucose ketone, blood 3+, nitrite positive, leukocyte esterase trace, wbc 0-5, rbc 11-20, bacteria many. MICROBIOLOGY DATA: Blood culture, no growth in 48 hours. RADIOLOGICAL DATA: X-ray KUB single view at presentation, proximal loop of the right ureteral stent may be in the proximal right ureter. MEDICATIONS AT DISCHARGE: Please refer to the med reconciliation sheet. DIET: Heart healthy diet, plenty of water by mouth advised. ACTIVITY: As tolerated. INSTRUCTION AT DISCHARGE: Continue medications as per discharge recommendation. Follow up with Dr. Olmos, urologist as available. Follow up with PCP, Dr. Jerrell Howe in 1 week. Repeat CBC and CMP in 1 week. Continue regular medication. MD FANTA Harkins/WAN /[id number]
== END 2019-05-05 11:16 | disposition home or self-care (01) | DRG 660 ==
LOC: ER 18:42 → ERHOLD 21:17 → IMCU 05-03 00:55
PROVIDERS: ADMIT Internal Medicine; ATTEND Internal Medicine
PROC: 0TP98DZ Removal of Intraluminal Device from Ureter, Via Natural or Artificial Opening Endoscopic (ICD-10-PCS; 2019-05-04)
PROC: 0T768DZ Dilation of Right Ureter with Intraluminal Device, Via Natural or Artificial Opening Endoscopic (ICD-10-PCS; principal; 2019-05-04 06:30)
PROC: 0TC68ZZ Extirpation of Matter from Right Ureter, Via Natural or Artificial Opening Endoscopic (ICD-10-PCS; 2019-05-04 06:30)
DX: T83.122A Displacement of indwelling ureteral stent, initial encounter (principal); N13.2 Hydronephrosis with renal and ureteral calculous obstruction; N39.0 Urinary tract infection, site not specified; N17.9 Acute kidney failure, unspecified; E03.9 Hypothyroidism, unspecified; R31.0 Gross hematuria; K21.9 Gastro-esophageal reflux disease without esophagitis; K29.70 Gastritis, unspecified, without bleeding; Z87.442 Personal history of urinary calculi; Z82.49 Family history of ischemic heart disease and other diseases of the circulatory system; Z80.42 Family history of malignant neoplasm of prostate; I25.10 Atherosclerotic heart disease of native coronary artery without angina pectoris
CPT/HCPCS: 36415; 74018; 76000; 80048; 80053; 81001; 81025; 83690; 83735; 84100; 84443; 85025; 85610; 87040; 88300; 96361; 99284; C2617; J0696; J1100; J1170; J1885; J2001; J2250; J2405; J3010; J7030

== ENCOUNTER 2019-05-10 17:20 | Emergency (ER) | payer BC ==
[~2019-05-10] VITALS: Ht 137.2 cm; Wt 81.7 kg
--- OUTSIDE RECORDS SUMMARY | 2019-05-10 17:22 | XMS REPORT | Clinical Summary ---
Author Author [facility] Organization [facility] Address Unknown Phone Unavailable Care Team Providers Care Financial Reporting Manager Name Role Phone Asked, No Pcp PCP [...] (Primary Dx) 03/28/2019 Office Visit Cardiovascular after 05/09/2018 Social History Date Tobacco Use Types Packs/Day [...] INFLUENZA VACCINE 04/07/2019 Results Not on fileafter 05/09/2018 Insurance Type Payer Benefit Subscriber ID Effective Phone Address Plan / Dates Group PPO BCBS BCBS xxxxxxxxxxxx [id number] CHOICE resent PPO/FEDERA L EMPL PPO Advance Directives For more information, please contact: [phone] 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
--- OUTSIDE RECORDS SUMMARY | 2019-05-10 17:23 | XMS REPORT | Continuity of Care Document ---
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 [facility] ARM NUMBNESS/SOB Active 01/04/2018 [facility] HYPERKALEMIA Active 12/10/2016 [facility] 278.0 - OBESITY Active 02/24/2012 [facility] [place] Radiculopathy, site unspecified 01/15/2018 [facility] Urinary tract infection, site not specified 01/15/2018 [facility] Essential (primary) hypertension 01/15/2018 [facility] Hypertensive disorder, systemic arterial (disorder) Resolved Problem 01/15/2018 [facility] Renal failure syndrome (disorder) Resolved Problem 01/15/2018 [facility] Stenosis of larynx (disorder) Resolved Problem 01/15/2018 [facility] Vasculitis (disorder) Resolved Problem 01/15/2018 [facility] HYPERKALEMIA Active [facility] Medications Medication Details Route Status Patient Instructions Ordering Provider Order Date Source tramadol hydrochloride 50 MG Oral Tablet [Ultram] 50 mg=1 tab, PO, Q6H, PRN pain, X 3 day, # 12 tab, 0 Refill(s) No Longer Active 01/05/2018 [facility] Cephalexin 500 MG Oral Capsule [Keflex] 500 mg=1 cap, PO, TID, X 10 day, # 30 cap, 0 Refill(s) Active 01/05/2018 [facility] Saline Flush 0.9% 10 mL, Route: IVP, Drug Form: INJ, Dosing Weight 57.7, kg, PRN, PRN Line Flush, Start date: 01/04/18 22:28:00 CDT, Duration: 30 day, Stop date: 02/03/18 22:27:00 CDTNotes: (Same as: BD Posiflush) No Longer Active 01/05/2018 [facility] Tylenol 650 mg, 2 tab, Route: PO, Drug form: TAB, Q6H, Dosing Weight 57.7, kg, PRN Pain Score 1-3, Start date: 12/11/16 9:38:00 CDT, Duration: 30 day, Stop date: 01/10/17 9:37:00 CDTNotes: Do not exceed 4 gm/day. (Same as: Tylenol) Inactive 12/11/2016 [facility] Saline Flush 0.9% 10 ml, Route: IVP, Drug Form: INJ, Dosing Weight 72.727, kg, Q12H, Start date: 12/11/16 9:00:00 CDT, Duration: 30 day, Stop date: 01/09/17 21:00:00 CDTNotes: (Same as: BD Posiflush) Inactive 12/11/2016 [facility] 24 HR Nifedipine 90 MG Extended Release Tablet 90 mg, 1 tab, Route: PO, Drug form: ERTAB, Daily, Dosing Weight 57.7, kg, Start date: 12/11/16 9:00:00 CDT, Duration: 30 day, Stop date: 01/09/17 9:00:00 CDT Inactive 12/11/2016 [facility] heparin 5,000 unit, 1 mL, Route: SUB-Q, Drug form: INJ, Q12H, Dosing Weight 72.727, kg, Start date: 12/11/16 9:00:00 CDT, Duration: 30 day, Stop date: 01/09/17 21:00:00 CDTNotes: porcine heparin Inactive 12/11/2016 [facility] Protonix 40 mg, 1 tab, Route: PO, Drug form: ECTAB, Before Breakfast, Start date: 12/11/16 9:00:00 CDT, Stop date: 01/09/17 7:30:00 CDTNotes: Tablet should not be chewed or crushed. (Same as: Protonix) Inactive 12/11/2016 [facility] Prednisone 15 mg, 3 tab, Route: PO, Drug form: TAB, Daily, Dosing Weight 57.7, kg, Start date: 12/11/16 9:00:00 CDT, Duration: 30 day, Stop date: 01/09/17 9:00:00 CDTNotes: Take with food. Inactive 12/11/2016 [facility] Fluticasone propionate 0.05 MG/ACTUAT Metered Dose Nasal [place] 1 spray, Route: NASAL, Drug Form: SPRY, Dosing Weight 57.7, kg, BID, Start date: 12/11/16 9:00:00 CDT, Duration: 30 day, Stop date: 01/09/17 17:00:00 CDTNotes: (Same as: Flonase) Inactive 12/11/2016 [facility] Ergocalciferol 35108 UNT Oral Capsule 50,000 IntlUnit, 1 cap, Route: PO, Drug form: CAP, qWeek, Dosing Weight 57.7, kg, Start date: 12/11/16 9:00:00 CDT, Duration: 30 day, Stop date: 01/08/17 9:00:00 CDTNotes: (Same as: Vitamin D) "Do Not Crush" Inactive 12/11/2016 [facility] Dexilant 30 mg, Route: PO, Drug form: DRC, Daily, Dosing Weight 57.7, kg, Start date: 12/11/16 9:00:00 CDT, Duration: 30 day, Stop date: 01/09/17 9:00:00 CDT Inactive 12/11/2016 [facility] Clotrimazole 10 MG/ML Topical Solution 1 appl, Route: TOP, BID, Drug form: CRM, Start date: 12/11/16 9:00:00 CDT, Duration: 30 day, Stop date: 01/09/17 17:00:00 CDTNotes: For external use only. (Same As: Lotrimin AF, Mycelex) Inactive 12/11/2016 [facility] carvedilol 12.5 mg, Route: PO, Drug form: TAB, Q12H, Dosing Weight 57.7, kg, Start date: 12/11/16 9:00:00 CDT, Duration: 30 day, Stop date: 01/09/17 21:00:00 CDT Inactive 12/11/2016 [facility] Renvela 1,600 mg, 2 tab, Route: PO, Drug form: TAB, TID- Meals, Dosing Weight 57.7, kg, Start date: 12/11/16 8:00:00 CDT, Duration: 30 day, Stop date: 01/09/17 17:00:00 CDTNotes: Same as: Renvela Inactive 12/11/2016 [facility] ferrous sulfate 325 mg, 1 tab, Route: PO, Drug form: ECTAB, TID-Meals, Dosing Weight 57.7, kg, Start date: 12/11/16 8:00:00 CDT, Duration: 30 day, Stop date: 01/09/17 17:00:00 CDTNotes: Give with food. "Do Not Crush" Inactive 12/11/2016 [facility] Hydralazine 10 mg, 0.5 mL, Route: IVP, Drug form: INJ, Q4H, Dosing Weight 57.7, kg, Priority: NOW, Start date: 12/11/16 3:29:00 CDT, Duration: 30 day, Stop date: 01/10/17 0:00:00 CDTNotes: (Same as: Apresoline) Push over 5 minutes Inactive 12/11/2016 [facility] 24 HR Nifedipine 90 MG Extended Release Tablet 90 mg, 1 tab, Route: PO, Drug form: ERTAB, Daily, Dosing Weight 57.7, kg, Priority: NOW, Start date: 12/11/16 3:28:00 CDT, Duration: 30 day, Stop date: 01/09/17 9:00:00 CDTNotes: (Same as: Adalat CC,Procardia XL) "Do Not Crush" "Avoid grapefruit and grapefruit juice" Inactive 12/11/2016 [facility] carvedilol 12.5 mg, 1 tab, Route: PO, Drug form: TAB, Q12H, Dosing Weight 57.7, kg, Priority: NOW, Start date: 12/11/16 3:28:00 CDT, Duration: 30 day, Stop date: 01/09/17 21:00:00 CDTNotes: Give with food. (Same As: Coreg) Inactive 12/11/2016 [facility] Albuterol 0.833 MG/ML / Ipratropium [place] 0.167 MG/ML Inhalant Solution 3 mL, Route: INHALATION, Drug Form: SOLN, Dosing Weight 57.7, kg, Q6H, PRN Wheezing, Start date: 12/11/16 3:25:00 CDT, Duration: 30 day, Stop date: 01/10/17 3:24:00 CDTNotes: (Same as: Duoneb) Inactive 12/11/2016 [facility] Bisacodyl 10 mg, 1 supp, Route: MI, Drug form: SUPP, Daily, Dosing Weight 57.7, kg, PRN Constipation, Start date: 12/11/16 3:25:00 CDT, Duration: 30 day, Stop date: 01/10/17 3:24:00 CDTNotes: (Same As: Dulcolax, Bisco-Lax) Inactive 12/11/2016 [facility] Sodium Bicarbonate 325 MG Oral Tablet 2 tabs, PO, TID, 0 Refill(s) Active 12/11/2016 [facility] predniSONE 10 mg oral tablet 15 mg=1.5 tab, PO, Daily, x 90 days, 0 Refill(s) Active 12/11/2016 [facility] sevelamer carbonate 800 MG Oral Tablet [Renvela] 1,600 mg=2 tab, PO, TID-Meals, # 180 tab, 0 Refill(s) Active 12/11/2016 [facility] Clotrimazole 10 MG/ML Topical Solution 1 appl, TOP, BID, # 15 mL, 0 Refill(s) Active 12/11/2016 [facility] vancomycin 125 mg oral capsule See Instructions, 1 cap PO Q6H x2d then q12 x7d then daily x7d then every other day x14d, 0 Refill(s) No Longer Active 12/11/2016 [facility] Ciprofloxacin 500 MG Oral Tablet [Cipro] 500 mg=1 tab, PO, Daily, 0 Refill(s) No Longer Active 12/11/2016 [facility] sevelamer carbonate 800 mg oral tablet 1,600 mg=2 tab, PO, TID, with meals, 0 Refill(s) No Longer Active 12/11/2016 [facility] 24 HR Nifedipine 90 MG Extended Release Tablet 90 mg=1 tab, PO, Daily, # 30 tab, 0 Refill(s) Active 12/11/2016 [facility] Bisacodyl 10 mg, MI, Daily, PRN constipation, 0 Refill(s) No Longer Active 12/11/2016 [facility] ferrous sulfate 325 mg oral enteric coated tablet 325 mg=1 tab, PO, TID, Start with 1 tab daily x 3 days, advance as tolerate, use stool softners and laxatives as needed for constipation, # 90 tab, 3 Refill(s) Active 12/11/2016 [facility] Albuterol 0.833 MG/ML / Ipratropium [place] 0.167 MG/ML Inhalant Solution 3 mL, INHALATION, Q6H, PRN Wheezing, # 30 ea, 1 Refill(s) No Longer Active 12/11/2016 [facility] Ergocalciferol [id number] UNT Oral Capsule 50,000 IntlUnit=1 cap, PO, qWeek, # 8 cap, 0 Refill(s) Active 12/11/2016 [facility] dexlansoprazole 30 MG Enteric Coated Capsule [Dexilant] 30 mg=1 cap, PO, Daily, # 30 cap, 1 Refill(s) Active 12/11/2016 [facility] Fluticasone propionate 0.05 MG/ACTUAT Metered Dose Nasal [place] 1 spray, NASAL, BID, # 16 gm, 0 Refill(s) Active 12/11/2016 [facility] carvedilol 12.5 mg oral tablet 12.5 mg=1 tab, PO, Q12H, # 60 tab, 0 Refill(s) Active 12/11/2016 [facility] Sodium Chloride 0.154 MEQ/ML Inhalant Solution See Instructions, PRN Congestion, 2 sprays, 0 Refill(s) No Longer Active 12/11/2016 [facility] Insulin, Aspart, Human 4 unit, 0.04 mL, Route: SUB-Q, Drug form: SOLN, Bedtime, Dosing Weight 57.7, kg, PRN Blood Glucose Results, Start date: 12/10/16 23:32:00 CDT, Duration: 30 day, Stop date: 01/09/17 23:31:00 CDTNotes: Roll in palms of hands gently; Do not shake vigorously. (Same as: NovoLOG) "single patient use only" WASTE: F/P - Black; E - [employer] Trash Bin Stable for 28 days at room temperature. Expires in days from Date No Longer Active 12/11/2016 [facility] Dextrose 50% Syringe 12.5 gm, 25 mL, Route: IVP, Drug Form: INJ, Dosing Weight 57.7, kg, PRN, PRN Blood Glucose Results, Start date: 12/10/16 23:32:00 CDT, Duration: 30 day, Stop date: 01/09/17 23:31:00 CDT No Longer Active 12/11/2016 [facility] Glucagon 1 mg, Route: IM, Drug form: PDR/INJ, PRN, Dosing Weight 57.7, kg, PRN Blood Glucose Results, Start date: 12/10/16 23:32:00 CDT, Duration: 30 day, Stop date: 01/09/17 23:31:00 CDT No Longer Active 12/11/2016 [facility] Procrit 7,500 unit, 0.75 mL, Route: SUB-Q, Drug form: INJ, After Dialysis, Dosing Weight 72.727, kg, PRN Dialysis, Start date: 12/10/16 23:18:00 CDT, Duration: 30 day, Stop date: 01/09/17 23:17:00 CDTNotes: (Same as: Procrit) epoetin jay 84815 unit/1 ml VL. For dialysis use only. (Procrit) WASTE: F/P - Red; E -Red MEDICATION WASTE Product Size: 56506 unit Product Wasted: ___ unit No Longer Active 12/11/2016 [facility] Saline Flush 0.9% 10 ml, Route: IVP, Drug Form: INJ, Dosing Weight 72.727, kg, PRN, PRN Line Flush, Start date: 12/10/16 23:11:00 CDT, Duration: 30 day, Stop date: 01/09/17 23:10:00 CDTNotes: (Same as: BD Posiflush) No Longer Active 12/11/2016 [facility] Nystatin 100 UNT/MG Topical Powder 1 appl, Route: TOP, PRN, Drug form: PWDR, PRN For Fungal Prophylaxis, Start date: 12/10/16 23:11:00 CDT, Duration: 30 day, Stop date: 01/09/17 23:10:00 CDTNotes: (Same as:Mycostatin, Nilstat) For external use only. No Longer Active 12/11/2016 [facility] Allergies, Adverse Reactions, Alerts No Known Medication [...] Moderate *ABN* (01/05/18 12:25 AM) Negative 01/05/2018 [facility] URINE AND STOOL UA Bili Negative *NA* (01/05/18 12:25 AM) Negative 01/05/2018 [facility] URINE AND STOOL UA Nitrite Positive *ABN* (01/05/18 12:25 AM) Negative 01/05/2018 [facility] URINE AND STOOL UA Protein Negative mg/dL Negative mg/dL 01/05/2018 [facility] URINE AND STOOL UA pH 5.0 5.0 - 8.0 01/05/2018 [facility] URINE AND STOOL UA Ketones Negative mg/dL Negative mg/dL 01/05/2018 [facility] URINE AND STOOL UA Glucose Negative mg/dL Negative mg/dL 01/05/2018 [facility] URINE AND STOOL UA Color Yellow *NA* (01/05/18 12:25 AM) Yellow 01/05/2018 [facility] URINE AND STOOL UA Spec Grav 1.020 <=1.030 01/05/2018 [facility] URINE AND STOOL UA Turbidity Marked *ABN* (01/05/18 12:25 AM) Clear 01/05/2018 [facility] CARDIAC ENZYMES CK MB <1.0 0.5 - 3.6 01/05/2018 [facility] CARDIAC ENZYMES Troponin-I <0.02 0.00 - 0.40 01/05/2018 [facility] CARDIAC ENZYMES Total CK 105 12 - 191 01/05/2018 [facility] CARDIAC ENZYMES CK MB Index <1.0 0.0 - 2.5 01/05/2018 [facility] CHEM PANEL eGFR 75 01/05/2018 [...] should be multiplied by the estimated BMI. [facility] CHEM PANEL Albumin Lvl 3.5 3.5 - 5.0 01/05/2018 [facility] CHEM PANEL Calcium Lvl 8.8 8.5 - 10.5 01/05/2018 [facility] CHEM PANEL Chloride Lvl 106 95 - 109 01/05/2018 [facility] CHEM PANEL CO2 27 24 - 32 01/05/2018 [facility] CHEM PANEL Sodium Lvl 138 135 - 145 01/05/2018 [facility] CHEM PANEL Potassium Lvl 3.6 3.5 - 5.1 01/05/2018 [facility] CHEM PANEL BUN 17 7 - 22 01/05/2018 [facility] CHEM PANEL Creatinine Lvl 0.90 0.50 - 1.40 01/05/2018 [facility] CHEM PANEL B/C Ratio 19 6 - 25 01/05/2018 [facility] CHEM PANEL Bili Total 0.4 0.2 - 1.3 01/05/2018 [facility] CHEM PANEL Globulin 4.4 2.7 - 4.2 01/05/2018 [facility] CHEM PANEL AGAP 8.6 10.0 - 20.0 01/05/2018 [facility] CHEM PANEL A/G Ratio 0.8 0.7 - 1.6 01/05/2018 [facility] CHEM PANEL Glucose Lvl 77 70 - 99 01/05/2018 [facility] CHEM PANEL Total Protein 7.9 6.4 - 8.4 01/05/2018 [facility] CHEM PANEL AST 35 0 - 37 01/05/2018 [facility] CHEM PANEL Alk Phos 51 39 - 136 01/05/2018 [facility] CHEM PANEL ALT 52 0 - 65 01/05/2018 [facility] PTT 30.0 22.9 - 35.8 01/05/2018 [facility] PT 12.5 12.0 - 14.7 01/05/2018 [facility] INR 0.93 0.85 - 1.17 01/05/2018 [facility] MCHC 34.4 32.0 - 36.0 01/05/2018 [facility] MPV 9.1 7.4 - 10.4 01/05/2018 [facility] MCH 31.8 27.0 - 31.0 01/05/2018 [facility] Platelet 306 133 - 450 01/05/2018 [facility] RDW 13.9 11.5 - 14.5 01/05/2018 [facility] MCV 92.3 80.0 - 98.0 01/05/2018 [facility] Hct 39.1 36.0 - 48.0 01/05/2018 [facility] WBC 10.1 3.7 - 10.4 01/05/2018 [facility] Hgb 13.4 12.0 - 16.0 01/05/2018 [facility] RBC 4.23 4.20 - 5.40 01/05/2018 [facility] Segs-Bands # 3.3 1.5 - 8.1 01/05/2018 [facility] Monocytes 12.0 2.0 - 12.0 01/05/2018 [facility] Segs 32.3 45.0 - 75.0 01/05/2018 [facility] Lymphocytes 50.4 20.0 - 40.0 01/05/2018 [facility] Monocytes # 1.2 0.0 - 0.8 01/05/2018 [facility] HEMATOLOGY Eosinophils 4.9 0.0 - 4.0 01/05/2018 [facility] HEMATOLOGY Eosinophils # 0.5 0.0 - 0.5 01/05/2018 [facility] HEMATOLOGY Basophils 0.4 0.0 - 1.0 01/05/2018 [facility] Lymphocytes # 5.1 1.0 - 5.5 01/05/2018 [facility] CHEM PANEL eGFR 10 12/11/2016 [...] should be multiplied by the estimated BMI. [facility] CHEM PANEL Chloride Lvl 100 95 - 109 12/11/2016 [facility] CHEM PANEL Sodium Lvl 138 135 - 145 12/11/2016 [facility] CHEM PANEL Potassium Lvl 3.6 3.5 - 5.1 12/11/2016 [facility] CHEM PANEL BUN 33 7 - 22 12/11/2016 [facility] CHEM PANEL Creatinine Lvl 4.83 0.50 - 1.40 12/11/2016 [facility] CHEM PANEL Calcium Lvl 8.0 8.5 - 10.5 12/11/2016 [facility] CHEM PANEL CO2 27 24 - 32 12/11/2016 [facility] CHEM PANEL AGAP 14.6 10.0 - 20.0 12/11/2016 [facility] CHEM PANEL Glucose Lvl 71 70 - 99 12/11/2016 [facility] HEMATOLOGY Basophils 0.6 0.0 - 1.0 12/11/2016 [facility] HEMATOLOGY Eosinophils 1.7 0.0 - 4.0 12/11/2016 [facility] HEMATOLOGY Monocytes 7.5 2.0 - 12.0 12/11/2016 [facility] HEMATOLOGY Lymphocytes 7.5 20.0 - 40.0 12/11/2016 [facility] HEMATOLOGY Eosinophils # 0.1 0.0 - 0.5 12/11/2016 [facility] HEMATOLOGY Monocytes # 0.5 0.0 - 0.8 12/11/2016 [facility] HEMATOLOGY Lymphocytes # 0.5 1.0 - 5.5 12/11/2016 [facility] HEMATOLOGY Segs 82.7 45.0 - 75.0 12/11/2016 [facility] HEMATOLOGY Segs-Bands # 5.8 1.5 - 8.1 12/11/2016 [facility] Hgb 9.2 12.0 - 16.0 12/11/2016 [facility] HEMATOLOGY MCV 85.5 80.0 - 98.0 12/11/2016 [facility] MCH 28.9 27.0 - 31.0 12/11/2016 [facility] MCHC 33.8 32.0 - 36.0 12/11/2016 [facility] HEMATOLOGY Hct 27.4 36.0 - 48.0 12/11/2016 [facility] MPV 7.1 7.4 - 10.4 12/11/2016 [facility] Platelet 203 133 - 450 12/11/2016 [facility] RDW 14.5 11.5 - 14.5 12/11/2016 [facility] RBC 3.20 4.20 - 5.40 12/11/2016 [facility] WBC 7.0 3.7 - 10.4 12/11/2016 [facility] CHEM PANEL eGFR 3 12/11/2016 Result Comment: [...] should be multiplied by the estimated BMI. [facility] CHEM PANEL CO2 21 24 - 32 12/11/2016 [facility] CHEM PANEL Chloride Lvl 99 95 - 109 12/11/2016 [facility] CHEM PANEL AGAP 25.7 10.0 - 20.0 12/11/2016 [facility] CHEM PANEL Calcium Lvl 7.7 8.5 - 10.5 12/11/2016 [facility] CHEM PANEL Sodium Lvl 139 135 - 145 12/11/2016 [facility] CHEM PANEL Potassium Lvl 6.7 3.5 - 5.1 12/11/2016 Result Comment: Critical Result(s) called to Debra Lindquist RN at 12/11/2016 00:09 by RA. Read back OK. [facility] CHEM PANEL Glucose Lvl 84 70 - 99 12/11/2016 [facility] CHEM PANEL BUN 114 7 - 22 12/11/2016 [facility] CHEM PANEL Creatinine Lvl 12.40 0.50 - 1.40 12/11/2016 [facility] HEMATOLOGY Platelet 223 133 - 450 12/11/2016 [facility] MPV 7.4 7.4 - 10.4 12/11/2016 [facility] RDW 14.6 11.5 - 14.5 12/11/2016 [facility] MCHC 33.4 32.0 - 36.0 12/11/2016 [facility] MCH 28.9 27.0 - 31.0 12/11/2016 [facility] HEMATOLOGY MCV 86.4 80.0 - 98.0 12/11/2016 [facility] Hct 27.2 36.0 - 48.0 12/11/2016 [facility] HEMATOLOGY WBC 8.6 3.7 - 10.4 12/11/2016 [facility] Hgb 9.1 12.0 - 16.0 12/11/2016 [facility] RBC 3.15 4.20 - 5.40 12/11/2016 [facility] HEMATOLOGY Basophils 0.4 0.0 - 1.0 12/11/2016 [facility] HEMATOLOGY Segs-Bands # 7.6 1.5 - 8.1 12/11/2016 [facility] HEMATOLOGY Monocytes 5.9 2.0 - 12.0 12/11/2016 [facility] HEMATOLOGY Lymphocytes 4.2 20.0 - 40.0 12/11/2016 [facility] HEMATOLOGY Segs 89.1 45.0 - 75.0 12/11/2016 [facility] HEMATOLOGY Eosinophils 0.4 0.0 - 4.0 12/11/2016 [facility] Lymphocytes # 0.4 1.0 - 5.5 12/11/2016 [facility] Monocytes # 0.5 0.0 - 0.8 12/11/2016 [facility] Anisocyte 1+ *ABN* (12/10/16 11:20 PM) None Seen 12/11/2016 [facility] HEMATOLOGY Plt Morph Normal (12/10/16 11:20 PM) 12/11/2016 [facility] IMMUNOLOGY Hep Bs Ab <3.1 <=7.4 mIU/mL 12/11/2016 [facility] IMMUNOLOGY Hep Bs Ag Negative *NA* (12/10/16 11:20 PM) Negative 12/11/2016 [facility] SPECIAL CHEMISTRY Hgb A1C 4.8 <=5.6 % 12/11/2016 [facility] Pathology Reports No Data Provided for This [...] right lower extremity DVT SL: [id number] 01/04/2018 [facility] Spine cervical wo contrast CT [...] of the cervical spine. SL: [id number] 01/04/2018 [facility] DX Clinical Indication: - right hand numbness; Comparison: 12/10/2016 FINDINGS: AP chest radiographs shows normal lung volumes without interstitial or airspace opacities, pleural effusions or pneumothorax. The heart size and pulmonary vasculature are normal. The trachea is midline. There are no clinically significant osseous abnormalities noted. IMPRESSION: No chest radiographic evidence of acute cardiopulmonary disease. SL: [id number] 01/04/2018 [facility] DX Clinical Indication: Shortness of Breath [...] present in satisfactory locations. SL: 82 12/10/2016 [facility] Consultation Notes No Data Provided for This Section Discharge Summaries No Data Provided for This Section History and Physicals No Data Provided for This Section Vital Signs Vital Sign Value Date Comments Source Systolic (mm Hg) 118 01/05/2018 [facility] Diastolic (mm Hg) 76 01/05/2018 [facility] Respitory Rate 16 01/05/2018 [facility] Temperature Oral (F) 98 F 01/05/2018 [facility] Heart Rate 86 01/05/2018 [facility] Heart Rate 83 01/04/2018 [facility] Respitory Rate 18 01/04/2018 [facility] Systolic (mm Hg) 127 01/04/2018 [facility] Diastolic (mm Hg) 87 01/04/2018 [facility] Temperature Oral (F) 98.7 F 01/04/2018 [facility] Systolic (mm Hg) 129 12/11/2016 [facility] Diastolic (mm Hg) 79 12/11/2016 [facility] Respitory Rate 20 12/11/2016 [facility] Systolic (mm Hg) 144 12/11/2016 [facility] Diastolic (mm Hg) 83 12/11/2016 [facility] Respitory Rate 25 12/11/2016 [facility] Systolic (mm Hg) 135 12/11/2016 [facility] Diastolic (mm Hg) 76 12/11/2016 [facility] Respitory Rate 20 12/11/2016 [facility] BMI Calculated 25.69 12/11/2016 [facility] Height 149.86 cm 12/11/2016 [facility] Weight 57.7 12/11/2016 [facility] [facility] [place] Height 149.86 cm 12/11/2016 [facility] Weight 57.007 12/11/2016 [facility] BMI Calculated 25.38 12/11/2016 [facility] Encounters Location Location Details Encounter Type Encounter Number Reason For Visit Attending Provider ADM Date DC Date Status Source OD [id number] 278.0 - OBESITY JUDY PONCE 02/24/2012 [id number] Osmund Agbo 12/11/2016 12/11/2016 [facility] Emergency [id number] Tim Pham 01/04/2018 01/05/2018 [facility] Procedures Procedure Code Date Perfomer Comments Source Hysterectomy [id number] 12/08/2014 [facility] [place],[facility] section [id number] [facility] [place] Tracheostomy [id number] [facility] [place] Assessment and Plan Assessment and [...] Hemodialysis CONSULTANTS: Attending: Eusebio Valiente MD.....Office: .....MSO: [id number] Status: Inpatient Code Status: None Specified=FULL CODE [...] Working DRG: MISC DISORDERS OF NUTRITION,METABOLISM,FLUIDS/ELECTROLYTES W/O USP Diet: Diet Renal 80,2,2,1(pro,sod,pot,phos) PCP: PCP, Maria Isabel BOURGEOIS.....Office: (not on file).....MSO: [id number] Consulting Physicians: Chandler Wooten MD Office: MSO: [...] MD Date: 12/10/16 Impression and Plan 12/11/2016 [facility] Plan of Care No Data Provided for This Section Social History Social History Date Source Social History TypeResponse Smoking Status Never smoker; Type: Cigarettes; Previous treatment: None; Ready to change: No; Concerns about tobacco use in household: No; Exposure to Tobacco Smoke None; Cigarette Smoking Last 365 Days No; Reg Smoking Cessation Counseling No entered on: 01/04/18 01/05/2018 [facility] Social History TypeResponse Smoking Status Never smoker; Exposure to Tobacco Smoke None; Cigarette Smoking Last 365 Days No; Reg Smoking Cessation Counseling No 12/11/2016 [facility] [place] Family History No Data Provided for This Section Advance Directives No Data Provided for This Section Functional Status No Data Provided for This Section
--- OUTSIDE RECORDS SUMMARY | 2019-05-10 17:26 | XMS REPORT | Continuity of Care Document ---
Author Author [employer] Address Unknown Phone Unavailable Care Team Providers Care Beaming Inspector Name Role Phone [employer] Unavailable Unavailable Problems Problem Status Onset Date Classification Date Reported Comments Source Escherichia coli (organism) Active 01/05/2018 Problem 01/15/2018 urine (ESBL+), 01/05/2018 Problem added by Discern Expert. [facility] ARM NUMBNESS/SOB Active 01/04/2018 [facility] HYPERKALEMIA Active 12/10/2016 [facility] 278.0 - OBESITY Active 02/24/2012 [facility] [place] Radiculopathy, site unspecified 01/15/2018 [facility] Urinary tract infection, site not specified 01/15/2018 [facility] Essential (primary) hypertension 01/15/2018 [facility] Hypertensive disorder, systemic arterial (disorder) Resolved Problem 01/15/2018 [facility] Renal failure syndrome (disorder) Resolved Problem 01/15/2018 [facility] Stenosis of larynx (disorder) Resolved Problem 01/15/2018 [facility] Vasculitis (disorder) Resolved Problem 01/15/2018 [facility] HYPERKALEMIA Active [facility] Medications Medication Details Route Status Patient Instructions Ordering Provider Order Date Source tramadol hydrochloride 50 MG Oral Tablet [Ultram] 50 mg=1 tab, PO, Q6H, PRN pain, X 3 day, # 12 tab, 0 Refill(s) No Longer Active 01/05/2018 [facility] Cephalexin 500 MG Oral Capsule [Keflex] 500 mg=1 cap, PO, TID, X 10 day, # 30 cap, 0 Refill(s) Active 01/05/2018 [facility] Saline Flush 0.9% 10 mL, Route: IVP, Drug Form: INJ, Dosing Weight 57.7, kg, PRN, PRN Line Flush, Start date: 01/04/18 22:28:00 CDT, Duration: 30 day, Stop date: 02/03/18 22:27:00 CDTNotes: (Same as: BD Posiflush) No Longer Active 01/05/2018 [facility] Tylenol 650 mg, 2 tab, Route: PO, Drug form: TAB, Q6H, Dosing Weight 57.7, kg, PRN Pain Score 1-3, Start date: 12/11/16 9:38:00 CDT, Duration: 30 day, Stop date: 01/10/17 9:37:00 CDTNotes: Do not exceed 4 gm/day. (Same as: Tylenol) Inactive 12/11/2016 [facility] Saline Flush 0.9% 10 ml, Route: IVP, Drug Form: INJ, Dosing Weight 72.727, kg, Q12H, Start date: 12/11/16 9:00:00 CDT, Duration: 30 day, Stop date: 01/09/17 21:00:00 CDTNotes: (Same as: BD Posiflush) Inactive 12/11/2016 [facility] 24 HR Nifedipine 90 MG Extended Release Tablet 90 mg, 1 tab, Route: PO, Drug form: ERTAB, Daily, Dosing Weight 57.7, kg, Start date: 12/11/16 9:00:00 CDT, Duration: 30 day, Stop date: 01/09/17 9:00:00 CDT Inactive 12/11/2016 [facility] heparin 5,000 unit, 1 mL, Route: SUB-Q, Drug form: INJ, Q12H, Dosing Weight 72.727, kg, Start date: 12/11/16 9:00:00 CDT, Duration: 30 day, Stop date: 01/09/17 21:00:00 CDTNotes: porcine heparin Inactive 12/11/2016 [facility] Protonix 40 mg, 1 tab, Route: PO, Drug form: ECTAB, Before Breakfast, Start date: 12/11/16 9:00:00 CDT, Stop date: 01/09/17 7:30:00 CDTNotes: Tablet should not be chewed or crushed. (Same as: Protonix) Inactive 12/11/2016 [facility] Prednisone 15 mg, 3 tab, Route: PO, Drug form: TAB, Daily, Dosing Weight 57.7, kg, Start date: 12/11/16 9:00:00 CDT, Duration: 30 day, Stop date: 01/09/17 9:00:00 CDTNotes: Take with food. Inactive 12/11/2016 [facility] Fluticasone propionate 0.05 MG/ACTUAT Metered Dose Nasal [place] 1 spray, Route: NASAL, Drug Form: SPRY, Dosing Weight 57.7, kg, BID, Start date: 12/11/16 9:00:00 CDT, Duration: 30 day, Stop date: 01/09/17 17:00:00 CDTNotes: (Same as: Flonase) Inactive 12/11/2016 [facility] Ergocalciferol 14128 UNT Oral Capsule 50,000 IntlUnit, 1 cap, Route: PO, Drug form: CAP, qWeek, Dosing Weight 57.7, kg, Start date: 12/11/16 9:00:00 CDT, Duration: 30 day, Stop date: 01/08/17 9:00:00 CDTNotes: (Same as: Vitamin D) "Do Not Crush" Inactive 12/11/2016 [facility] Dexilant 30 mg, Route: PO, Drug form: DRC, Daily, Dosing Weight 57.7, kg, Start date: 12/11/16 9:00:00 CDT, Duration: 30 day, Stop date: 01/09/17 9:00:00 CDT Inactive 12/11/2016 [facility] Clotrimazole 10 MG/ML Topical Solution 1 appl, Route: TOP, BID, Drug form: CRM, Start date: 12/11/16 9:00:00 CDT, Duration: 30 day, Stop date: 01/09/17 17:00:00 CDTNotes: For external use only. (Same As: Lotrimin AF, Mycelex) Inactive 12/11/2016 [facility] carvedilol 12.5 mg, Route: PO, Drug form: TAB, Q12H, Dosing Weight 57.7, kg, Start date: 12/11/16 9:00:00 CDT, Duration: 30 day, Stop date: 01/09/17 21:00:00 CDT Inactive 12/11/2016 [facility] Renvela 1,600 mg, 2 tab, Route: PO, Drug form: TAB, TID- Meals, Dosing Weight 57.7, kg, Start date: 12/11/16 8:00:00 CDT, Duration: 30 day, Stop date: 01/09/17 17:00:00 CDTNotes: Same as: Renvela Inactive 12/11/2016 [facility] ferrous sulfate 325 mg, 1 tab, Route: PO, Drug form: ECTAB, TID-Meals, Dosing Weight 57.7, kg, Start date: 12/11/16 8:00:00 CDT, Duration: 30 day, Stop date: 01/09/17 17:00:00 CDTNotes: Give with food. "Do Not Crush" Inactive 12/11/2016 [facility] Hydralazine 10 mg, 0.5 mL, Route: IVP, Drug form: INJ, Q4H, Dosing Weight 57.7, kg, Priority: NOW, Start date: 12/11/16 3:29:00 CDT, Duration: 30 day, Stop date: 01/10/17 0:00:00 CDTNotes: (Same as: Apresoline) Push over 5 minutes Inactive 12/11/2016 [facility] 24 HR Nifedipine 90 MG Extended Release Tablet 90 mg, 1 tab, Route: PO, Drug form: ERTAB, Daily, Dosing Weight 57.7, kg, Priority: NOW, Start date: 12/11/16 3:28:00 CDT, Duration: 30 day, Stop date: 01/09/17 9:00:00 CDTNotes: (Same as: Adalat CC,Procardia XL) "Do Not Crush" "Avoid grapefruit and grapefruit juice" Inactive 12/11/2016 [facility] carvedilol 12.5 mg, 1 tab, Route: PO, Drug form: TAB, Q12H, Dosing Weight 57.7, kg, Priority: NOW, Start date: 12/11/16 3:28:00 CDT, Duration: 30 day, Stop date: 01/09/17 21:00:00 CDTNotes: Give with food. (Same As: Coreg) Inactive 12/11/2016 [facility] Albuterol 0.833 MG/ML / Ipratropium [place] 0.167 MG/ML Inhalant Solution 3 mL, Route: INHALATION, Drug Form: SOLN, Dosing Weight 57.7, kg, Q6H, PRN Wheezing, Start date: 12/11/16 3:25:00 CDT, Duration: 30 day, Stop date: 01/10/17 3:24:00 CDTNotes: (Same as: Duoneb) Inactive 12/11/2016 [facility] Bisacodyl 10 mg, 1 supp, Route: NJ, Drug form: SUPP, Daily, Dosing Weight 57.7, kg, PRN Constipation, Start date: 12/11/16 3:25:00 CDT, Duration: 30 day, Stop date: 01/10/17 3:24:00 CDTNotes: (Same As: Dulcolax, [place]isco-Lax) Inactive 12/11/2016 [facility] Sodium Bicarbonate 325 MG Oral Tablet 2 tabs, PO, TID, 0 Refill(s) Active 12/11/2016 [facility] predniSONE 10 mg oral tablet 15 mg=1.5 tab, PO, Daily, x 90 days, 0 Refill(s) Active 12/11/2016 [facility] sevelamer carbonate 800 MG Oral Tablet [Renvela] 1,600 mg=2 tab, PO, TID-Meals, # 180 tab, 0 Refill(s) Active 12/11/2016 [facility] Clotrimazole 10 MG/ML Topical Solution 1 appl, TOP, BID, # 15 mL, 0 Refill(s) Active 12/11/2016 [facility] vancomycin 125 mg oral capsule See Instructions, 1 cap PO Q6H x2d then q12 x7d then daily x7d then every other day x14d, 0 Refill(s) No Longer Active 12/11/2016 [facility] Ciprofloxacin 500 MG Oral Tablet [Cipro] 500 mg=1 tab, PO, Daily, 0 Refill(s) No Longer Active 12/11/2016 [facility] sevelamer carbonate 800 mg oral tablet 1,600 mg=2 tab, PO, TID, with meals, 0 Refill(s) No Longer Active 12/11/2016 [facility] 24 HR Nifedipine 90 MG Extended Release Tablet 90 mg=1 tab, PO, Daily, # 30 tab, 0 Refill(s) Active 12/11/2016 [facility] Bisacodyl 10 mg, NJ, Daily, PRN constipation, 0 Refill(s) No Longer Active 12/11/2016 [facility] ferrous sulfate 325 mg oral enteric coated tablet 325 mg=1 tab, PO, TID, Start with 1 tab daily x 3 days, advance as tolerate, use stool softners and laxatives as needed for constipation, # 90 tab, 3 Refill(s) Active 12/11/2016 [facility] Albuterol 0.833 MG/ML / Ipratropium [place] 0.167 MG/ML Inhalant Solution 3 mL, INHALATION, Q6H, PRN Wheezing, # 30 ea, 1 Refill(s) No Longer Active 12/11/2016 [facility] Ergocalciferol 32467 UNT Oral Capsule 50,000 IntlUnit=1 cap, PO, qWeek, # 8 cap, 0 Refill(s) Active 12/11/2016 [facility] dexlansoprazole 30 MG Enteric Coated Capsule [Dexilant] 30 mg=1 cap, PO, Daily, # 30 cap, 1 Refill(s) Active 12/11/2016 [facility] Fluticasone propionate 0.05 MG/ACTUAT Metered Dose Nasal [place] 1 spray, NASAL, BID, # 16 gm, 0 Refill(s) Active 12/11/2016 [facility] carvedilol 12.5 mg oral tablet 12.5 mg=1 tab, PO, Q12H, # 60 tab, 0 Refill(s) Active 12/11/2016 [facility] Sodium Chloride 0.154 MEQ/ML Inhalant Solution See Instructions, PRN Congestion, 2 sprays, 0 Refill(s) No Longer Active 12/11/2016 [facility] Insulin, Aspart, Human 4 unit, 0.04 mL, Route: SUB-Q, Drug form: SOLN, Bedtime, Dosing Weight 57.7, kg, PRN Blood Glucose Results, Start date: 12/10/16 23:32:00 CDT, Duration: 30 day, Stop date: 01/09/17 23:31:00 CDTNotes: Roll in palms of hands gently; Do not shake vigorously. (Same as: NovoLOG) "single patient use only" WASTE: F/P - Black; E - Buck Trash Bin Stable for 28 days at room temperature. Expires in days from Date No Longer Active 12/11/2016 [facility] Dextrose 50% Syringe 12.5 gm, 25 mL, Route: IVP, Drug Form: INJ, Dosing Weight 57.7, kg, PRN, PRN Blood Glucose Results, Start date: 12/10/16 23:32:00 CDT, Duration: 30 day, Stop date: 01/09/17 23:31:00 CDT No Longer Active 12/11/2016 [facility] Glucagon 1 mg, Route: IM, Drug form: PDR/INJ, PRN, Dosing Weight 57.7, kg, PRN Blood Glucose Results, Start date: 12/10/16 23:32:00 CDT, Duration: 30 day, Stop date: 01/09/17 23:31:00 CDT No Longer Active 12/11/2016 [facility] Procrit 7,500 unit, 0.75 mL, Route: SUB-Q, Drug form: INJ, After Dialysis, Dosing Weight 72.727, kg, PRN Dialysis, Start date: 12/10/16 23:18:00 CDT, Duration: 30 day, Stop date: 01/09/17 23:17:00 CDTNotes: (Same as: Procrit) epoetin jay 68349 unit/1 ml VL. For dialysis use only. (Procrit) WASTE: F/P - Red; E -Red MEDICATION WASTE Product Size: 29382 unit Product Wasted: ___ unit No Longer Active 12/11/2016 [facility] Saline Flush 0.9% 10 ml, Route: IVP, Drug Form: INJ, Dosing Weight 72.727, kg, PRN, PRN Line Flush, Start date: 12/10/16 23:11:00 CDT, Duration: 30 day, Stop date: 01/09/17 23:10:00 CDTNotes: (Same as: BD Posiflush) No Longer Active 12/11/2016 [facility] Nystatin 100 UNT/MG Topical Powder 1 appl, Route: TOP, PRN, Drug form: PWDR, PRN For Fungal Prophylaxis, Start date: 12/10/16 23:11:00 CDT, Duration: 30 day, Stop date: 01/09/17 23:10:00 CDTNotes: (Same as:Mycostatin, Nilstat) For external use only. No Longer Active 12/11/2016 [facility] Allergies, Adverse Reactions, Alerts No Known [...] Moderate *ABN* (01/05/18 12:25 AM) Negative 01/05/2018 [facility] URINE AND STOOL UA Bili Negative *NA* (01/05/18 12:25 AM) Negative 01/05/2018 [facility] URINE AND STOOL UA Nitrite Positive *ABN* (01/05/18 12:25 AM) Negative 01/05/2018 [facility] URINE AND STOOL UA Protein Negative mg/dL Negative mg/dL 01/05/2018 [facility] URINE AND STOOL UA pH 5.0 5.0 - 8.0 01/05/2018 [facility] URINE AND STOOL UA Ketones Negative mg/dL Negative mg/dL 01/05/2018 [facility] URINE AND STOOL UA Glucose Negative mg/dL Negative mg/dL 01/05/2018 [facility] URINE AND STOOL UA Color Yellow *NA* (01/05/18 12:25 AM) Yellow 01/05/2018 [facility] URINE AND STOOL UA Spec Grav 1.020 <=1.030 01/05/2018 [facility] URINE AND STOOL UA Turbidity Marked *ABN* (01/05/18 12:25 AM) Clear 01/05/2018 [facility] CARDIAC ENZYMES CK MB <1.0 0.5 - 3.6 01/05/2018 [facility] CARDIAC ENZYMES Troponin-I <0.02 0.00 - 0.40 01/05/2018 [facility] CARDIAC ENZYMES Total CK 105 12 - 191 01/05/2018 [facility] CARDIAC ENZYMES CK MB Index <1.0 0.0 - 2.5 01/05/2018 [facility] CHEM PANEL eGFR 75 01/05/2018 Result [...] should be multiplied by the estimated BMI. [facility] CHEM PANEL Albumin Lvl 3.5 3.5 - 5.0 01/05/2018 [facility] CHEM PANEL Calcium Lvl 8.8 8.5 - 10.5 01/05/2018 [facility] CHEM PANEL Chloride Lvl 106 95 - 109 01/05/2018 [facility] CHEM PANEL CO2 27 24 - 32 01/05/2018 [facility] CHEM PANEL Sodium Lvl 138 135 - 145 01/05/2018 [facility] CHEM PANEL Potassium Lvl 3.6 3.5 - 5.1 01/05/2018 [facility] CHEM PANEL BUN 17 7 - 22 01/05/2018 [facility] CHEM PANEL Creatinine Lvl 0.90 0.50 - 1.40 01/05/2018 [facility] CHEM PANEL B/C Ratio 19 6 - 25 01/05/2018 [facility] CHEM PANEL Bili Total 0.4 0.2 - 1.3 01/05/2018 [facility] CHEM PANEL Globulin 4.4 2.7 - 4.2 01/05/2018 [facility] CHEM PANEL AGAP 8.6 10.0 - 20.0 01/05/2018 [facility] CHEM PANEL A/G Ratio 0.8 0.7 - 1.6 01/05/2018 [facility] CHEM PANEL Glucose Lvl 77 70 - 99 01/05/2018 [facility] CHEM PANEL Total Protein 7.9 6.4 - 8.4 01/05/2018 [facility] CHEM PANEL AST 35 0 - 37 01/05/2018 [facility] CHEM PANEL Alk Phos 51 39 - 136 01/05/2018 [facility] CHEM PANEL ALT 52 0 - 65 01/05/2018 [facility] PTT 30.0 22.9 - 35.8 01/05/2018 [facility] PT 12.5 12.0 - 14.7 01/05/2018 [facility] INR 0.93 0.85 - 1.17 01/05/2018 [facility] MCHC 34.4 32.0 - 36.0 01/05/2018 [facility] MPV 9.1 7.4 - 10.4 01/05/2018 [facility] MCH 31.8 27.0 - 31.0 01/05/2018 [facility] Platelet 306 133 - 450 01/05/2018 [facility] RDW 13.9 11.5 - 14.5 01/05/2018 [facility] MCV 92.3 80.0 - 98.0 01/05/2018 [facility] Hct 39.1 36.0 - 48.0 01/05/2018 [facility] WBC 10.1 3.7 - 10.4 01/05/2018 [facility] Hgb 13.4 12.0 - 16.0 01/05/2018 [facility] RBC 4.23 4.20 - 5.40 01/05/2018 [facility] Segs-Bands # 3.3 1.5 - 8.1 01/05/2018 [facility] Monocytes 12.0 2.0 - 12.0 01/05/2018 [facility] Segs 32.3 45.0 - 75.0 01/05/2018 [facility] Lymphocytes 50.4 20.0 - 40.0 01/05/2018 [facility] Monocytes # 1.2 0.0 - 0.8 01/05/2018 [facility] HEMATOLOGY Eosinophils 4.9 0.0 - 4.0 01/05/2018 [facility] HEMATOLOGY Eosinophils # 0.5 0.0 - 0.5 01/05/2018 [facility] HEMATOLOGY Basophils 0.4 0.0 - 1.0 01/05/2018 [facility] Lymphocytes # 5.1 1.0 - 5.5 01/05/2018 [facility] CHEM PANEL eGFR 10 12/11/2016 Result [...] should be multiplied by the estimated BMI. [facility] CHEM PANEL Chloride Lvl 100 95 - 109 12/11/2016 [facility] CHEM PANEL Sodium Lvl 138 135 - 145 12/11/2016 [facility] CHEM PANEL Potassium Lvl 3.6 3.5 - 5.1 12/11/2016 [facility] CHEM PANEL BUN 33 7 - 22 12/11/2016 [facility] CHEM PANEL Creatinine Lvl 4.83 0.50 - 1.40 12/11/2016 [facility] CHEM PANEL Calcium Lvl 8.0 8.5 - 10.5 12/11/2016 [facility] CHEM PANEL CO2 27 24 - 32 12/11/2016 [facility] CHEM PANEL AGAP 14.6 10.0 - 20.0 12/11/2016 [facility] CHEM PANEL Glucose Lvl 71 70 - 99 12/11/2016 [facility] HEMATOLOGY Basophils 0.6 0.0 - 1.0 12/11/2016 [facility] HEMATOLOGY Eosinophils 1.7 0.0 - 4.0 12/11/2016 [facility] HEMATOLOGY Monocytes 7.5 2.0 - 12.0 12/11/2016 [facility] HEMATOLOGY Lymphocytes 7.5 20.0 - 40.0 12/11/2016 [facility] HEMATOLOGY Eosinophils # 0.1 0.0 - 0.5 12/11/2016 [facility] HEMATOLOGY Monocytes # 0.5 0.0 - 0.8 12/11/2016 [facility] HEMATOLOGY Lymphocytes # 0.5 1.0 - 5.5 12/11/2016 [facility] HEMATOLOGY Segs 82.7 45.0 - 75.0 12/11/2016 [facility] HEMATOLOGY Segs-Bands # 5.8 1.5 - 8.1 12/11/2016 [facility] Hgb 9.2 12.0 - 16.0 12/11/2016 [facility] HEMATOLOGY MCV 85.5 80.0 - 98.0 12/11/2016 [facility] MCH 28.9 27.0 - 31.0 12/11/2016 [facility] MCHC 33.8 32.0 - 36.0 12/11/2016 [facility] HEMATOLOGY Hct 27.4 36.0 - 48.0 12/11/2016 [facility] MPV 7.1 7.4 - 10.4 12/11/2016 [facility] Platelet 203 133 - 450 12/11/2016 [facility] RDW 14.5 11.5 - 14.5 12/11/2016 [facility] RBC 3.20 4.20 - 5.40 12/11/2016 [facility] WBC 7.0 3.7 - 10.4 12/11/2016 [facility] CHEM PANEL eGFR 3 12/11/2016 Result [...] should be multiplied by the estimated BMI. [facility] CHEM PANEL CO2 21 24 - 32 12/11/2016 [facility] CHEM PANEL Chloride Lvl 99 95 - 109 12/11/2016 [facility] CHEM PANEL AGAP 25.7 10.0 - 20.0 12/11/2016 [facility] CHEM PANEL Calcium Lvl 7.7 8.5 - 10.5 12/11/2016 [facility] CHEM PANEL Sodium Lvl 139 135 - 145 12/11/2016 [facility] CHEM PANEL Potassium Lvl 6.7 3.5 - 5.1 12/11/2016 Result Comment: Critical Result(s) called to Debra Lindquist RN at 12/11/2016 00:09 by RA. Read back OK. [facility] CHEM PANEL Glucose Lvl 84 70 - 99 12/11/2016 [facility] CHEM PANEL BUN 114 7 - 22 12/11/2016 [facility] CHEM PANEL Creatinine Lvl 12.40 0.50 - 1.40 12/11/2016 [facility] HEMATOLOGY Platelet 223 133 - 450 12/11/2016 [facility] MPV 7.4 7.4 - 10.4 12/11/2016 [facility] RDW 14.6 11.5 - 14.5 12/11/2016 [facility] MCHC 33.4 32.0 - 36.0 12/11/2016 [facility] MCH 28.9 27.0 - 31.0 12/11/2016 [facility] HEMATOLOGY MCV 86.4 80.0 - 98.0 12/11/2016 [facility] Hct 27.2 36.0 - 48.0 12/11/2016 [facility] HEMATOLOGY WBC 8.6 3.7 - 10.4 12/11/2016 [facility] Hgb 9.1 12.0 - 16.0 12/11/2016 [facility] RBC 3.15 4.20 - 5.40 12/11/2016 [facility] HEMATOLOGY Basophils 0.4 0.0 - 1.0 12/11/2016 [facility] HEMATOLOGY Segs-Bands # 7.6 1.5 - 8.1 12/11/2016 [facility] HEMATOLOGY Monocytes 5.9 2.0 - 12.0 12/11/2016 [facility] HEMATOLOGY Lymphocytes 4.2 20.0 - 40.0 12/11/2016 [facility] HEMATOLOGY Segs 89.1 45.0 - 75.0 12/11/2016 [facility] HEMATOLOGY Eosinophils 0.4 0.0 - 4.0 12/11/2016 [facility] Lymphocytes # 0.4 1.0 - 5.5 12/11/2016 [facility] Monocytes # 0.5 0.0 - 0.8 12/11/2016 [facility] Anisocyte 1+ *ABN* (12/10/16 11:20 PM) None Seen 12/11/2016 [facility] HEMATOLOGY Plt Morph Normal (12/10/16 11:20 PM) 12/11/2016 [facility] IMMUNOLOGY Hep Bs Ab <3.1 <=7.4 mIU/mL 12/11/2016 [facility] IMMUNOLOGY Hep Bs Ag Negative *NA* (12/10/16 11:20 PM) Negative 12/11/2016 [facility] SPECIAL CHEMISTRY Hgb A1C 4.8 <=5.6 % 12/11/2016 [facility] Pathology Reports No Data Provided for [...] right lower extremity DVT SL: WR4-M 01/04/2018 [facility] Spine cervical wo contrast CT CT [...] of the cervical spine. SL: SGKERRYRI-[place]lem 01/04/2018 [facility] DX Clinical Indication: - right hand numbness; Comparison: 12/10/2016 FINDINGS: AP chest radiographs shows normal lung volumes without interstitial or airspace opacities, pleural effusions or pneumothorax. The heart size and pulmonary vasculature are normal. The trachea is midline. There are no clinically significant osseous abnormalities noted. IMPRESSION: No chest radiographic evidence of acute cardiopulmonary disease. SL: WR4-M 01/04/2018 [facility] DX Clinical Indication: Shortness of Breath [...] present in satisfactory locations. SL: 82 12/10/2016 [facility] Consultation Notes No Data Provided for This Section Discharge Summaries No Data Provided for This Section History and Physicals No Data Provided for This Section Vital Signs Vital Sign Value Date Comments Source Systolic (mm Hg) 118 01/05/2018 [facility] Diastolic (mm Hg) 76 01/05/2018 [facility] Respitory Rate 16 01/05/2018 [facility] Temperature Oral (F) 98 F 01/05/2018 [facility] Heart Rate 86 01/05/2018 [facility] Heart Rate 83 01/04/2018 [facility] Respitory Rate 18 01/04/2018 [facility] Systolic (mm Hg) 127 01/04/2018 [facility] Diastolic (mm Hg) 87 01/04/2018 [facility] Temperature Oral (F) 98.7 F 01/04/2018 [facility] Systolic (mm Hg) 129 12/11/2016 [facility] Diastolic (mm Hg) 79 12/11/2016 [facility] Respitory Rate 20 12/11/2016 [facility] Systolic (mm Hg) 144 12/11/2016 [facility] Diastolic (mm Hg) 83 12/11/2016 [facility] Respitory Rate 25 12/11/2016 [facility] Systolic (mm Hg) 135 12/11/2016 [facility] Diastolic (mm Hg) 76 12/11/2016 [facility] Respitory Rate 20 12/11/2016 [facility] BMI Calculated 25.69 12/11/2016 [facility] Height 149.86 cm 12/11/2016 [facility] Weight 57.7 12/11/2016 [facility] Height 149.86 cm 12/11/2016 [facility] Weight 57.007 12/11/2016 [facility] BMI Calculated 25.38 12/11/2016 [facility] Encounters Location Location Details Encounter Type Encounter Number Reason For Visit Attending Provider ADM Date DC Date Status Source OD [id number] 278.0 - OBESITY JUDY PONCE 02/24/2012 [id number] Osmund Agbo 12/11/2016 12/11/2016 [facility] Emergency [id number] Tim Pham 01/04/2018 01/05/2018 [facility] Procedures Procedure Code Date Perfomer Comments Source Hysterectomy [id number] 12/08/2014 [facility] section [id number] [facility] Tracheostomy [id number] [facility] Assessment and Plan Assessment and Plan [...] Hemodialysis CONSULTANTS: Attending: Eusebio Valiente MD.....Office: .....MSO: [id number] Status: Inpatient Code Status: None Specified=FULL CODE [...] Working DRG: MISC DISORDERS OF NUTRITION,METABOLISM,FLUIDS/ELECTROLYTES W/O [facility] Diet: Diet Renal 80,2,2,1(pro,sod,pot,phos) PCP: PCP, Maria Isabel BOURGEOIS.....Office: (not on file).....MSO: [id number] Consulting Physicians: Chandler Wooten MD Office: MSO: [...] MD Date: 12/10/16 Impression and Plan 12/11/2016 [facility] Plan of Care No Data Provided for This Section Social History Social History Date Source Social History TypeResponse Smoking Status Never smoker; Type: Cigarettes; Previous treatment: None; Ready to change: No; Concerns about tobacco use in household: No; Exposure to Tobacco Smoke None; Cigarette Smoking Last 365 Days No; Reg Smoking Cessation Counseling No entered on: 01/04/18 01/05/2018 [facility] Social History TypeResponse Smoking Status Never smoker; Exposure to Tobacco Smoke None; Cigarette Smoking Last 365 Days No; Reg Smoking Cessation Counseling No 12/11/2016 [facility] Family History No Data Provided for This Section Advance Directives No Data Provided for This Section Functional Status No Data Provided for This Section
--- OUTSIDE RECORDS SUMMARY | 2019-05-10 17:26 | XMS REPORT | Clinical Summary ---
Author Author [employer] Organization [employer] [facility] Address Unknown Phone Unavailable Care Team Providers Care Product Ambassador Name Role Phone Asked, No Pcp PCP [...] Advance Directives For more information, please contact: [phone] Patient Supervisor Fruit Grading Explanation Type Date Recorded Advance Directives, Living Will and Medical Power of Assistant Refinery Operator
[2019-05-10 18:11] LABS: BILIRUBIN,URINE NEGATIVE (NEGATIVE); CLARITY,URINE CLOUDY (CLEAR); COLOR,URINE YELLOW (YELLOW); KETONES,URINE NEGATIVE (NEGATIVE); LEUKOCYTE ESTERASE ,URINE LARGE (NEGATIVE); NITRITE,URINE NEGATIVE (NEGATIVE); PROTEIN,URINE DIPSTICK 1+ (NEGATIVE); URINE UROBILINOGEN 0.2 mg/dL (0.2 - 1)
[2019-05-10 18:14] LABS: PREGNANCY TEST, URINE NEGATIVE (NEGATIVE)
[2019-05-10 18:23] LABS: BACTERIA,URINE MODERATE /HPF; EPITHELIAL CELLS,URINE RARE /LPF; WBC,URINE (MAN) 21-50 /HPF (0-5)
[2019-05-10] MEDS ORDERED: HYDROCODONE/APAP 7.5MG-325MG 1 EA TAB PO STA (19:30)
[2019-05-10 21:41] LABS: BASOPHILS % 0.6 % (0.0-1.0); EOSINOPHILS # (AUTO) 0.2 (0.0-0.4); EOSINOPHILS % 2.7 % (0.0-6.0); HEMATOCRIT 38.4 % (34.2-44.1); HEMOGLOBIN 13.2 g/dL (12.0-16.0); LYMPHOCYTES % 43.2 % (18.0-39.1); MEAN CORPUSCULAR HEMOGLOBIN 31.4 pg (28-32); MEAN CORPUSCULAR HGB CONC 34.4 g/dL (31-35); MEAN CORPUSCULAR VOLUME 91.4 fL (81-99); MONOCYTES # (AUTO) 1.1 (0.2-0.8); MONOCYTES % 15.4 % (4.4-11.3); NEUTROPHILS # (AUTO) 2.6 (2.1-6.9); NEUTROPHILS % 37.7 % (38.7-80.0); PLATELET COUNT 312 x10e3/uL (140-360); RED CELL DISTRIBUTION WIDTH 12.3 % (11.7-14.4)
[2019-05-10 21:51] LABS: ANION GAP 11.8 mmol/L (8-16); BLOOD UREA NITROGEN 10 mg/dL (7-26); BUN/CREATININE RATIO 10 (6-25); CALCIUM 9.4 mg/dL (8.4-10.2); CARBON DIOXIDE 26 mmol/L (22-29); CHLORIDE 100 mmol/L (98-107); CREATININE, SERUM 0.96 mg/dL (0.57-1.11); EST GLOMERULAR FILTRATION RATE > 60 ML/MIN (60-); GLUCOSE 101 mg/dL (74-118); POTASSIUM 3.8 mmol/L (3.5-5.1); SODIUM 134 mmol/L (136-145)
[2019-05-10] MEDS ORDERED: MACROBID 100 M100 MG PO (22:54)
[2019-05-10] MEDS ORDERED: IBUPROFEN 600 MG TAB PO STA (22:55)
== END 2019-05-10 23:18 | disposition home or self-care (01) ==
LOC: ER 17:23
DX: R10.2 Pelvic and perineal pain (principal); R30.0 Dysuria; R11.2 Nausea with vomiting, unspecified; N30.91 Cystitis, unspecified with hematuria; E03.9 Hypothyroidism, unspecified
CPT/HCPCS: 36415; 80048; 81001; 81025; 85025; 87086; 87186; 99283

== ENCOUNTER → 2019-05-13 | Outpatient (CLI) | payer BC ==
[~2019-05-13] MED LIST changes: +MACROBID 100 M100 MG PO
--- NOTE | 2019-05-13 17:27 | Diagnostic Imaging Report ---
Exam: KUB - 2 views Indication: Nephroureteral stent placement Comparison: KUB of 05/02/2019 Findings: Interval placement of right nephroureteral stent in expected position. No radiographically apparent renal calculi. Nonobstructive bowel gas pattern. Degenerative changes of the lower lumbar spine. Impression: Expected position of intervally placed right nephroureteral stent. Signed by: Heide Zamorano MD on 05/13/2019 5:24 PM
--- NOTE | 2019-05-16 04:14 | Progress Note ---
DATE: 05/15/2019 Cardiology Progress Note SUBJECTIVE: No major events overnight. Feels much better today. OBJECTIVE: VITAL SIGNS: Temperature afebrile, pulse 60, blood pressure 146/54, saturating 99% on nasal cannula. GENERAL: Elderly man, in no acute distress. CARDIOVASCULAR: Regular rate and rhythm. No murmurs, rubs, or gallops. LUNGS: Clear to auscultation bilaterally. ABDOMEN: Soft, nontender, nondistended. NEURO AND PSYCH: Alert and oriented to person, place and time. Normal affect. INPATIENT MEDICATIONS: Reviewed. LABORATORY DATA: Reviewed. TELEMETRY DATA: Reviewed, shows paced rhythm. ASSESSMENT: 1. Acute congestive heart failure exacerbation. 2. Pulmonary edema. 3. Acute kidney injury. 4. Hypertension. 5. Hyperlipidemia. 6. Diabetes. PLAN: Continue IV diuretics. The patient is feeling much better. Reviewed echocardiogram and stress test from the office showed normal left ventricular function and no ischemia on the stress test. We will repeat an echocardiogram given acute CHF exacerbation to make sure the ejection fraction is unchanged. Thank you for this consult. We will continue to follow. MD ZENON Victoria/CATINAL /[id number]
== END ==
LOC: RAD 15:58
PROVIDERS: ATTEND Urology
DX: T19.1XXA Foreign body in bladder, initial encounter (principal)
CPT/HCPCS: 74018

== ENCOUNTER → 2020-11-20 | Outpatient (CLI) | payer BC | LOC: US 09:03 | PROVIDERS: ATTEND Internal Medicine | DX: E03.9 Hypothyroidism, unspecified (principal) | CPT/HCPCS: 76536 ==

== ENCOUNTER → 2021-01-02 | Day surgery (SDC) | payer BC, OTHER ==
[~2021-01-02] MED LIST changes: +CYCLOBENZAPRINE10 MG PO; -LEVOTHYROXINE100 MC1 IV; +LEVOTHYROXINE100 MC1 PO; +PANTOPRAZOLE 40 MG 10ML VIAL ONE; +PROPOFOL IV EMULSION 10 MG/ML 20 ML VIAL ONE; +PROVENTIL HFA6.7 GM INH; +ULTRAM50 MG PO
[2021-01-02 10:25] VITALS: BP 138/93
[2021-01-02 14:01] LABS: WBC,FECAL (FECAL LACTOFERRIN) NEGATIVE (NEGATIVE)
[2021-01-04 14:31] LABS: C DIFFICILE TOXIN A&B AMP PROB NEGATIVE (NEGATIVE)
== END | disposition home or self-care (01) ==
LOC: OR 06:16
PROVIDERS: ATTEND Internal Medicine Gastroenterology
DX: K52.9 Noninfective gastroenteritis and colitis, unspecified (principal); K31.7 Polyp of stomach and duodenum; K29.50 Unspecified chronic gastritis without bleeding; K21.00 Gastro-esophageal reflux disease with esophagitis, without bleeding; K44.9 Diaphragmatic hernia without obstruction or gangrene; K22.8 Other specified diseases of esophagus; K62.89 Other specified diseases of anus and rectum; K64.8 Other hemorrhoids; I10 Essential (primary) hypertension; E03.9 Hypothyroidism, unspecified; N20.0 Calculus of kidney; R06.02 Shortness of breath; Z01.812 Encounter for preprocedural laboratory examination; Z20.822 Contact with and (suspected) exposure to COVID-19; Z68.38 Body mass index [BMI] 38.0-38.9, adult; Z80.0 Family history of malignant neoplasm of digestive organs
CPT/HCPCS: 43239; 43450; 45380; 81025; 83630; 83993; 87045; 87177; 87328; 87493; C9113; J2704; U0002; 45378

== ENCOUNTER 2021-02-24 15:59 | Emergency (ER) | payer OTHER ==
[~2021-02-24] VITALS: Ht 149.9 cm; Wt 85.7 kg
[~2021-02-24 15:59] MED LIST changes: -PANTOPRAZOLE 40 MG 10ML VIAL ONE; -PROPOFOL IV EMULSION 10 MG/ML 20 ML VIAL ONE
[2021-02-24] MEDS ORDERED: CLEOCIN HCL300 MG PO (16:26)
== END 2021-02-24 16:34 | disposition home or self-care (01) ==
LOC: FSED 16:26
DX: L02.211 Cutaneous abscess of abdominal wall (principal); E03.9 Hypothyroidism, unspecified; Z87.442 Personal history of urinary calculi
CPT/HCPCS: 10060; 99282